=== PATIENT | female | born 1955 | race Caucasian/White ===

== ENCOUNTER → 2019-03-08 09:17 | Outpatient (CLI) | payer BC, SELFPAY ==
--- NOTE | 2019-03-08 09:19 | DIET.PN ---
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 doesn't like eggs anymore, doesn't like protein drinks, chicken too dry maybe if sauce, no grease or white cheese dr took out too much entire stomach esophagus drains right into SI. Pt can lean over toilet and vomit without trying. has to stop eating 7-8h before bed or vomits, no nausea more of a pressure only relieved by emesis. Meds: if takes caraphate med before bed, not as bad, but currently taking double dose and up to 4x/d, helps to coagulate refluxing bile. Pt not taking vitamins (MVI, D, Calcium, B12) she threw them away. Usual intake: B 3-4a 1 c coffee c milk c cookie or something sweet 4h later anything with sugar 2/3 c high pro cereals (burned out) c milk crackers and sugary foods throughout day, hungry every 30 min. Nutrition Diagnosis: Inadequate PRO intake r/t px in sternum as food feels stuck aeb 2/3 c high PRO cereal as main PRO source in day providing less than 20% of estimated needs, aversion to PRO foods b/c too dry or too greasy causing GI distress, pt reports eating only sugary foods. 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 Interventions: Educated pt on critical importance of supplements, problem solved a way to get liquid/sublingual versions rather than pill (more likely to consume). Collaborated on high PRO snack ideas. Acceptable PRO foods per pt: high pro cereal, egg (doesn't prefer), peanut butter c soda crackers, try cottage cheese. Educated pt on hunger satiety scale, honoring hunger, eating when 3 and stopping when 7. Keeping snacks in car. Monitoring/Evaluations: Pt interested in continuation of care.
== END ==
PROVIDERS: Visit Provider Family Medicine
DX: Z98.84 Bariatric surgery status (principal)
CPT/HCPCS: 97802

== ENCOUNTER → 2021-01-07 10:35 | Outpatient (CLI) | payer MEDICARE, OTHER, SELFPAY ==
[2021-01-07 19:46] LABS: Alanine Aminotransferase 9 IU/L (<35); Albumin 3.7 g/dL (3.5-5.0); Albumin Globulin Ratio 1.2 (1.0-2.8); Alkaline Phosphatase 111 U/L (38-126); Aspartate Aminotransferase 23 IU/L (14-36); BUN Creatinine Ratio 26.5 (6-22); Bilirubin Total 0.3 mg/dL (0.2-1.3); Blood Urea Nitrogen 18 mg/dL (7-17); Calcium 9.7 mg/dL (8.4-10.2); Carbon Dioxide 29 mmol/L (22-32); Chloride 103 mmol/L (98-107); Estimated Glomerular Filt Rate > 60.0 mL/min (>60); Glucose 96 mg/dL (80-110); HEMOLYSIS < 15 (0-50); Potassium 4.5 mmol/L (3.4-5.1); Sodium 138 mmol/L (137-145); Total Protein 6.7 g/dL (6.3-8.2)
[2021-01-07 19:48] LABS: Hemoglobin A1C% w Est Avg Glu 5.5 % (4.0-6.0)
[2021-01-07 20:07] LABS: Thyroid Stimulating Hormone 1.37 uIU/mL (0.47-4.68)
[2021-01-07 21:38] LABS: Add Manual Diff / Slide Review NO; Basophils Absolute Auto 0 /uL (0-100); Basophils Percent Auto 0.3 % (0-2); Eosinophils Absolute Auto 200 /uL (0-450); Eosinophils Percent Auto 2.5 % (2-4); Hematocrit 39.5 % (36-46); Hemoglobin 13.6 g/dL (12.0-16.0); Lymphocytes Absolute Auto 2700 /uL (1100-4500); Lymphocytes Percent Auto 33.8 % (25-40); Mean Corpuscular HGB Conc 34.4 % (30-36); Mean Corpuscular Hemoglobin 28.8 PG (26-34); Monocytes Absolute Auto 500 /uL (0-900); Monocytes Percent Auto 5.7 % (3-14); Neutrophils Absolute Auto 4600 /uL (1500-7000); Neutrophils Percent Auto 57.7 % (50-75); Platelet Count 245 X10^3/uL (150-400); Red Blood Cell Count 4.71 X10^6/uL (4.0-5.2); Red Cell Distribution Width 13.7 % (11.6-14.8)
[2021-01-07 22:11] LABS: Vitamin B12 337 pg/mL (239-931)
[2021-01-07 22:45] LABS: Folate 10.8 ng/mL (2.76-20.0)
[2021-01-09 08:41] LABS: Parathyroid Hormone Int 26 pg/mL (15-65)
== END ==
PROVIDERS: PCP Family Medicine; Visit Provider Family Medicine
DX: J69.0 Pneumonitis due to inhalation of food and vomit; E66.01 Morbid (severe) obesity due to excess calories; R53.82 Chronic fatigue, unspecified; K44.9 Diaphragmatic hernia without obstruction or gangrene; F33.41 Major depressive disorder, recurrent, in partial remission
CPT/HCPCS: 80053; 82607; 82746; 83036; 83970; 84443; 85025

== ENCOUNTER → 2021-04-25 13:49 | Outpatient (CLI) | payer MEDICARE, OTHER, SELFPAY | PROVIDERS: PCP Family Medicine; Referring Provider Family Medicine; Visit Provider Family Medicine | DX: R20.2 Paresthesia of skin (principal) | CPT/HCPCS: 95886; 95909 ==

== ENCOUNTER 2021-08-27 13:56 | Inpatient (IN) | payer MEDICARE, OTHER, SELFPAY ==
[2021-08-27] VITALS (18 sets, daily range): BP systolic 93–165; BP diastolic 44–89; PULSE 60–91; RESP 16–29; TEMP 37.1–37.6; O2SAT 91–100; BMI 33.7
--- NOTE | 2021-08-27 14:08 | DI.RAD.S_ITS ---
PROCEDURE: XR CHEST 1V INDICATIONS: fatigue TECHNIQUE: One view of the chest was acquired. COMPARISON: None. FINDINGS: Surgical changes and devices: None. Lungs and pleura: Right perihilar atelectasis and or infiltrate accentuated by low lung volumes. Diffuse chronic interstitial changes present. Mediastinum: Heart size is enlarged. Bones and chest wall: No suspicious bony lesions. Overlying soft tissues appear unremarkable. IMPRESSION: 1. Right perihilar atelectasis and infiltrate as well as cardiomegaly accentuated by low lung volumes Approved by: Raghu Dutton M.D. on 08/27/2021 at 14:51
[2021-08-27 14:55] LABS: Add Manual Diff / Slide Review NO; Basophils Absolute Auto 200 /uL (0-100); Basophils Percent Auto 0.9 % (0-2); Eosinophils Absolute Auto 0 /uL (0-450); Eosinophils Percent Auto 0.1 % (2-4); Hematocrit 43.1 % (36-46); Hemoglobin 14.5 g/dL (12.0-16.0); Lymphocytes Absolute Auto 2000 /uL (1100-4500); Lymphocytes Percent Auto 9.6 % (25-40); Mean Corpuscular HGB Conc 33.8 % (30-36); Mean Corpuscular Hemoglobin 27.8 PG (26-34); Mean Corpuscular Volume 82.3 fL (80-100); Monocytes Absolute Auto 900 /uL (0-900); Monocytes Percent Auto 4.3 % (3-14); Neutrophils Absolute Auto 17500 /uL (1500-7000); Neutrophils Percent Auto 85.1 % (50-75); Platelet Count 306 X10^3/uL (150-400); Red Blood Cell Count 5.23 X10^6/uL (4.0-5.2); White Blood Cell Count 20.6 X10^3/uL (4.5-11.0)
[2021-08-27 15:11] LABS: Alanine Aminotransferase 18 IU/L (<35); Albumin 4.2 g/dL (3.5-5.0); Albumin Globulin Ratio 1.1 (1.0-2.8); Alkaline Phosphatase 112 U/L (38-126); Aspartate Aminotransferase 25 IU/L (14-36); BUN Creatinine Ratio 34.3 (6-22); Blood Urea Nitrogen 24 mg/dL (7-17); Calcium 9.8 mg/dL (8.4-10.2); Carbon Dioxide 29 mmol/L (22-32); Chloride 99 mmol/L (98-107); Estimated Glomerular Filt Rate > 60.0 mL/min (>60); Globulin 3.7 g/dL (1.7-4.1); Glucose 138 mg/dL (80-110); HEMOLYSIS < 15 (0-50); Lipase 14 U/L (23-300); Sodium 136 mmol/L (137-145); Total Protein 7.9 g/dL (6.3-8.2)
--- NOTE | 2021-08-27 15:12 | ED.NAVMDI ---
HPI - Nausea/Vomiting/Diarrhea <Meaghan Sky PA-C - Last Filed: 08/27/21 19:01> General Chief complaint: Nausea/Vomiting/Diarrhea Stated complaint: N/V/D, dehydrated- Sent by Time Seen by Provider: 08/27/21 14:20 Source: patient and family Mode of arrival: Wheelchair History of Present Illness HPI Narrative: 65-year-old female with past medical history hiatal hernia, status post gastric bypass, B12 nutritional deficiency, essential hypertension, osteoarthritis, depression presents to the ED with 8 days of nausea, vomiting, diarrhea, abdominal cramping. Patient also states that she frequently aspirates stomach contents while sleeping, that this happened last week, causing her to start coughing. Patient has a history of aspiration pneumonia. Patient denies fever but endorses chills. Patient denies shortness of breath, chest pain, dysuria, lightheadedness, dizziness, syncope. Patient states she is having hard time keeping down any solids or fluids and is afraid she might be very dehydrated. Patient endorses fatigue. Related Data Home Medications Medication Instructions Recorded Confirmed amlodipine 10 mg tablet 10 mg PO DAILY 12/27/20 08/27/21 solifenacin 10 mg tablet 10 mg PO DAILY 08/27/21 08/27/21 ursodiol 500 mg tablet 500 mg PO DAILY 08/27/21 08/27/21 Previous Rx's Medication Instructions Recorded fluoxetine 20 mg tablet 20 mg PO QDAY #90 tab 09/12/16 Allergies Allergy/AdvReac Type Severity Reaction Status Date / Time levofloxacin [From LEVAQUIN] Allergy Mild Verified 12/31/20 12:46 Review of Systems <Meaghan Sky PA-C - Last Filed: 08/27/21 19:01> Review of Systems ROS Unobtainable: All systems reviewed & are unremarkable except as noted in HPI and below Constitutional Constitutional: Reports chills, Denies fatigue, Denies fever(s), Denies frequent falls, Denies lethargy and Denies weakness Eyes Eyes: Denies change in vision, Denies eye discharge, Denies irritation and Denies loss of vision ENT Ears, Nose, Mouth, and Throat: Denies change in voice, Denies dizziness, Denies neck pain, Denies sore throat and Denies throat swelling Cardiovascular Cardiovascular: Denies chest pain, Denies irregular heart rhythm, Denies lightheadedness, Denies palpitations, Denies dyspnea, Denies dyspnea on exertion and Denies orthopnea Respiratory Respiratory: Reports cough, Denies dyspnea, Denies dyspnea on exertion and Denies wheezing Gastrointestinal Gastrointestinal: Reports abdominal pain, Denies change in bowel habits, Reports cramping, Reports diarrhea, Reports nausea and Reports vomiting Genitourinary Genitourinary: Denies hematuria, Denies dysuria, Denies flank pain, Denies urinary incontinence and Denies urinary urgency Musculoskeletal Musculoskeletal: Denies back pain, Denies muscle weakness, Denies neck pain, Denies numbness and Denies tingling Integumentary/Breasts Skin/Breast: Denies pruritus, Denies erythema, Denies rash and Denies wounds Neurologic Neurologic: Denies behavioral changes, Denies confusion, Denies dizziness, Denies frequent falls, Denies loss of vision, Denies numbness, Denies tingling and Denies weakness Psychiatric Psychiatric: Denies anxiety, Denies behavioral changes, Denies confusion, Denies depression, Denies homicidal ideation and Denies suicidal ideation Endocrine Endocrine: Denies fatigue, Denies flushing and Denies palpitations Hematologic/Lymphatic Hematologic/Lymphatic: Denies easy bruising Allergic/Immunologic Allergic/Immunologic: Denies urticaria, Denies throat swelling and Denies wheezing Patient History <Meaghan Sky PA-C - Last Filed: 08/27/21 19:01> Medical History (Updated 08/27/21 @ 23:28 by RAOUL Azar-ALAN) Chicken pox Depression Essential hypertension History of urinary incontinence (~1992) Measles Mumps Osteoarthritis Scarlet fever Surgical History H/O oophorectomy (~1988) History of bladder suspension procedure (~1998) History of carpal tunnel release (~1997) History of cataract removal with insertion of prosthetic lens History of Neil-en-Y gastric bypass (~08/2017) History of total abdominal hysterectomy Hx of cholecystectomy Family History Father Cancer Mother History of heart disease Sister Suicide Sister Kidney disease Grandfather History of emphysema Social History household members: spouse Smoking Status: Former smoker alcohol intake: current Smoking Status: Former smoker Exam <Meaghan Sky PA-C - Last Filed: 08/27/21 19:01> Initial Vital Signs Initial Vital Signs: Vital Signs Temperature 99.6 F 08/27/21 14:08 Pulse Rate 91 H 08/27/21 14:08 Respiratory Rate 22 08/27/21 14:08 Blood Pressure 165/89 H 08/27/21 14:08 Pulse Oximetry 91 08/27/21 14:08 Const General: cooperative and healthy appearing HENSC Head: normal to inspection Eyes General: appearance normal, both eyes and all related structures Neck Neck: normal visual inspection Chest Chest: normal inspection of the chest Resp Effort & Inspection: normal respiratory effort Auscultation: clear to auscultation bilaterally Cardio Rate: tachycardic Rhythm: regular rhythm GI Inspection: normal to inspection Other: Abdomen is soft, nondistended. Tender to palpation in the epigastric region. No CVA tenderness. General: No CVA tenderness Back/Spine/Pelvis Back: normal to inspection Skin General: no rashes or lesions noted Neuro General: patient alert, patient awake and patient oriented x3 Extrem General: normal to inspection <Bria Najera DO - Last Filed: 08/30/21 09:16> Initial Vital Signs Initial Vital Signs: Vital Signs Temperature 99.6 F 08/27/21 14:08 Pulse Rate 91 H 08/27/21 14:08 Respiratory Rate 22 08/27/21 14:08 Blood Pressure 165/89 H 08/27/21 14:08 Pulse Oximetry 91 08/27/21 14:08 Course <Meaghan Sky PA-C - Last Filed: 08/27/21 19:01> Course Course Narrative: WBC elevated to 20.6. Chest x-ray positive for pneumonia. CT abdomen pelvis positive for SBO. Patient's symptoms controlled with Ketoralac, Zofran, Reglan. Patient triggered sepsis with positive SIRS, sepsis was activated. Sepsis fluids, broad-spectrum antibiotics vancomycin and Zosyn started. Surgery was consulted for the SBO, they recommended attempting a hernia reduction. Hernia reduction was attempted, unsuccessful due to challenging body habitus sufficient. Surgery was reconsulted, they will consider taking the patient to the OR tomorrow. Hospitalist was consulted, patient admitted to medicine for pneumonia and SBO. Orders Ordered: Albuterol (Albuterol 1.25 Mg/3 Ml Neb (Pediatric)) 1.25 mg INH RTQ4HR PRN PRN Reason: Shortness Of Breath Or Wheezing Diphenhydramine HCl (Diphenhydramine 50 Mg/Ml Vial) 25 mg IV Q6HR PRN PRN Reason: Nausea Last Admin: 08/29/21 20:40 Dose: 25 mg Documented by: KAISER Enoxaparin Sodium (Enoxaparin 40 Mg/0.4 Ml Syringe) 40 mg SUBCUT DAILY LARRY Last Admin: 08/30/21 09:06 Dose: 40 mg Documented by: JOIE Hydromorphone HCl (Hydromorphone 1 Mg Inj) 1 mg IV Q6H PRN PRN Reason: Pain, Severe (7-10) Hydromorphone HCl (Hydromorphone 0.5 Mg Inj) 0.5 mg IV Q2H PRN PRN Reason: Pain, Moderate (4-6) Last Admin: 08/30/21 09:07 Dose: 0.5 mg Documented by: Admin: 08/30/21 06:38 Dose: 0.5 mg Documented by: Admin: 08/30/21 02:33 Dose: 0.5 mg Documented by: Admin: 08/30/21 00:06 Dose: 0.5 mg Documented by: Admin: 08/29/21 20:32 Dose: 0.5 mg Documented by: Admin: 08/29/21 17:12 Dose: 0.5 mg Documented by: Admin: 08/29/21 13:19 Dose: 0.5 mg Documented by: Admin: 08/29/21 11:19 Dose: 0.5 mg Documented by: Admin: 08/29/21 07:44 Dose: 0.5 mg Documented by: Admin: 08/29/21 05:34 Dose: 0.5 mg Documented by: Admin: 08/29/21 02:49 Dose: 0.5 mg Documented by: Admin: 08/28/21 20:38 Dose: 0.5 mg Documented by: Admin: 08/28/21 14:39 Dose: 0.5 mg Documented by: JOIE Potassium Chloride/Sodium Chloride (Ns With Kcl 20 Meq) 1,000 mls @ 100 mls/hr IV CONT [facility] Last Admin: 08/30/21 06:35 Dose: 100 mls/hr Documented by: Infusion: 08/30/21 06:27 Dose: 100 mls/hr Documented by: Admin: 08/29/21 20:27 Dose: 100 mls/hr Documented by: Infusion: 08/29/21 20:27 Dose: 100 mls/hr Documented by: Admin: 08/29/21 11:20 Dose: 100 mls/hr Documented by: Infusion: 08/29/21 11:20 Dose: 100 mls/hr Documented by: Admin: 08/29/21 02:03 Dose: 100 mls/hr Documented by: Infusion: 08/29/21 01:43 Dose: 100 mls/hr Documented by: Admin: 08/28/21 15:43 Dose: 100 mls/hr Documented by: JOIE Naloxone HCl (Naloxone 0.4 Mg/Ml Vial) 0.2 mg IV Q2MIN PRN PRN Reason: Opiate Reversal Ondansetron HCl (Ondansetron 4 Mg/2 Ml Inj) 4 mg IV Q4HR [facility] Admin: 08/30/21 09:07 Dose: Not Given Documented by: Admin: 08/30/21 04:58 Dose: Not Given Documented by: Admin: 08/30/21 02:32 Dose: Not Given Documented by: Admin: 08/29/21 20:33 Dose: 4 mg Documented by: Admin: 08/29/21 17:13 Dose: Not Given Documented by: Admin: 08/29/21 14:54 Dose: Not Given Documented by: Admin: 08/29/21 07:44 Dose: Not Given Documented by: Admin: 08/29/21 04:28 Dose: Not Given Documented by: Admin: 08/29/21 00:55 Dose: Not Given Documented by: Admin: 08/28/21 22:14 Dose: Not Given Documented by: Admin: 08/28/21 17:55 Dose: Not Given Documented by: JOIE Pantoprazole Sodium (Pantoprazole 40 Mg Vial) 40 mg IV BID [facility] Last Admin: 08/30/21 09:07 Dose: 40 mg Documented by: Admin: 08/29/21 20:31 Dose: 40 mg Documented by: Admin: 08/29/21 07:43 Dose: 40 mg Documented by: Admin: 08/28/21 20:37 Dose: 40 mg Documented by: TIBURCIO Sodium Chloride (Sodium Chloride 0.9% Flush) 10 ml IV PRN PRN PRN Reason: Flush Last Admin: 08/30/21 09:07 Dose: 10 ml Documented by: JOIE Sodium Chloride (Sodium Chloride 0.9% Flush) 10 ml IV BID [facility] Last Admin: 08/29/21 07:46 Dose: 10 ml Documented by: Admin: 08/29/21 07:44 Dose: 10 ml Documented by: Admin: 08/28/21 20:41 Dose: 10 ml Documented by: TIBURCIO Discontinued Medications Albuterol (Albuterol 2.5 Mg/3 Ml Neb (Adult)) 2.5 mg INH NOW PRN PRN Reason: Coughing, Wheezing, Dyspnea Diazepam (Diazepam 10 Mg/2 Ml Syringe) 5 mg IV NOW ONE Stop: 08/27/21 17:51 Last Admin: 08/27/21 18:04 Dose: 5 mg Documented by: CHAD Hydromorphone HCl (Hydromorphone 1 Mg Inj) 1 mg IV NOW ONE Stop: 08/27/21 18:26 Last Admin: 08/27/21 18:33 Dose: Not Given Documented by: CHAD Hydromorphone HCl (Hydromorphone 0.5 Mg Inj) 0.5 mg IV Q2H PRN PRN Reason: Pain, Moderate (4-6) Hydromorphone HCl (Hydromorphone 2 Mg Inj) 0.5 mg IV Q2H PRN PRN Reason: Pain, Moderate (4-6) Hydroxyzine HCl (Hydroxyzine 50 Mg/Ml Inj) 25 mg IM NOW PRN PRN Reason: Pain, Mild (1-3) Last Admin: 08/28/21 10:36 Dose: 25 mg Documented by: CHETNA Sodium Chloride (Normal Saline 0.9%) 1,000 mls @ 1,000 mls/hr IV BOLUS ONE Stop: 08/27/21 15:59 Last Infusion: 08/27/21 16:52 Dose: 0 mls/hr Documented by: Admin: 08/27/21 15:17 Dose: 1,000 mls/hr Documented by: CHAD Vancomycin HCl/Dextrose (Vancomycin) 1,500 mg in 300 mls @ 200 mls/hr IV NOW ONE Stop: 08/27/21 16:56 Last Infusion: 08/27/21 20:38 Dose: 200 mls/hr Documented by: Admin: 08/27/21 16:52 Dose: 200 mls/hr Documented by: CHAD Piperacillin Sod/Tazobactam (Sod 4.5 gm/ Sodium Chloride) 100 mls @ 200 mls/hr IV NOW ONE Stop: 08/27/21 15:28 Last Infusion: 08/27/21 16:51 Dose: 0 mls/hr Documented by: Admin: 08/27/21 16:07 Dose: 200 mls/hr Documented by: CHAD Sodium Chloride (Normal Saline 0.9%) 1,779 mls @ 593 mls/hr 30 ml/kg infuse over 3 hr (1779 ml) IV NOW ONE Stop: 08/27/21 18:28 Last Infusion: 08/27/21 20:39 Dose: 0 mls/hr Documented by: Admin: 08/27/21 16:52 Dose: 593 mls/hr Documented by: CHAD Lactated Ringer's (Lactated Ringers) 1,000 mls @ 100 mls/hr IV CONT LARRY Last Admin: 08/27/21 23:21 Dose: Not Given Documented by: JULIANNE Piperacillin Sod/Tazobactam (Sod 3.375 gm/ Sodium Chloride) 100 mls @ 25 mls/hr IV Q8H LARRY Last Infusion: 08/28/21 08:53 Dose: 0 mls/hr Documented by: Admin: 08/28/21 04:13 Dose: 25 mls/hr Documented by: Infusion: 08/28/21 01:10 Dose: 0 mls/hr Documented by: Admin: 08/27/21 21:06 Dose: 25 mls/hr Documented by: JULIANNE Sodium Chloride (Normal Saline 0.9%) 1,000 mls @ 60 mls/hr IV CONT [facility] Last Infusion: 08/28/21 14:58 Dose: 0 mls/hr Documented by: Admin: 08/27/21 21:05 Dose: 60 mls/hr Documented by: JULIANNE Ketorolac Tromethamine (Ketorolac 30 Mg/Ml Vial) 15 mg IV NOW ONE Stop: 08/27/21 15:01 Last Admin: 08/27/21 15:17 Dose: 15 mg Documented by: CHAD Ketorolac Tromethamine (Ketorolac 30 Mg/Ml Vial) 30 mg IV Q6HR PRN PRN Reason: Fever Stop: 09/01/21 19:52 Last Admin: 08/28/21 14:06 Dose: 30 mg Documented by: JOIE Metoclopramide HCl (Metoclopramide 10 Mg/2 Ml Inj) 10 mg IV NOW ONE Stop: 08/27/21 15:42 Last Admin: 08/27/21 15:50 Dose: 10 mg Documented by: CHAD Morphine Sulfate (Morphine 10 Mg/Ml Inj) 0 mg IV Q5M PRN PRN Reason: Pain, Mild (1-3) Morphine Sulfate (Morphine 10 Mg/Ml Inj) 0 mg IV Q5M PRN PRN Reason: Pain, Moderate (4-6) Morphine Sulfate (Morphine 10 Mg/Ml Inj) 0 mg IV Q5M PRN PRN Reason: Pain, Severe (7-10) Ondansetron HCl (Ondansetron 4 Mg/2 Ml Inj) 4 mg IV NOW ONE Stop: 08/27/21 15:01 Last Admin: 08/27/21 15:17 Dose: 4 mg Documented by: CHAD Ondansetron HCl (Ondansetron 4 Mg/2 Ml Inj) 4 mg IV Q8HR PRN PRN Reason: Nausea And Vomiting Ondansetron HCl (Ondansetron 4 Mg/2 Ml Inj) 4 mg IV NOW PRN PRN Reason: Nausea And Vomiting Pantoprazole Sodium (Pantoprazole 40 Mg Vial) 40 mg IV DAILY [facility] Last Admin: 08/28/21 08:53 Dose: Not Given Documented by: SPABONA Vital Signs Vital signs: Vital Signs - 8 hr 08/27/21 14:08 08/27/21 16:00 08/27/21 16:01 Temperature 99.6 F Pulse Rate 91 H 67 69 Respiratory Rate 22 24 29 H Blood Pressure 165/89 H 128/64 Pulse Oximetry 91 95 96 08/27/21 16:30 Temperature Pulse Rate 71 Respiratory Rate 23 Blood Pressure 106/67 Pulse Oximetry 96 <Bria Najera DO - Last Filed: 08/30/21 09:16> Orders Ordered: Albuterol (Albuterol 1.25 Mg/3 Ml Neb (Pediatric)) 1.25 mg INH RTQ4HR PRN PRN Reason: Shortness Of Breath Or Wheezing Diphenhydramine HCl (Diphenhydramine 50 Mg/Ml Vial) 25 mg IV Q6HR PRN PRN Reason: Nausea Last Admin: 08/29/21 20:40 Dose: 25 mg Documented by: KAISER Enoxaparin Sodium (Enoxaparin 40 Mg/0.4 Ml Syringe) 40 mg SUBCUT DAILY [facility] Last Admin: 08/30/21 09:06 Dose: 40 mg Documented by: JOIE Hydromorphone HCl (Hydromorphone 1 Mg Inj) 1 mg IV Q6H PRN PRN Reason: Pain, Severe (7-10) Hydromorphone HCl (Hydromorphone 0.5 Mg Inj) 0.5 mg IV Q2H PRN PRN Reason: Pain, Moderate (4-6) Last Admin: 08/30/21 09:07 Dose: 0.5 mg Documented by: Admin: 08/30/21 06:38 Dose: 0.5 mg Documented by: Admin: 08/30/21 02:33 Dose: 0.5 mg Documented by: Admin: 08/30/21 00:06 Dose: 0.5 mg Documented by: Admin: 08/29/21 20:32 Dose: 0.5 mg Documented by: Admin: 08/29/21 17:12 Dose: 0.5 mg Documented by: Admin: 08/29/21 13:19 Dose: 0.5 mg Documented by: Admin: 08/29/21 11:19 Dose: 0.5 mg Documented by: Admin: 08/29/21 07:44 Dose: 0.5 mg Documented by: Admin: 08/29/21 05:34 Dose: 0.5 mg Documented by: Admin: 08/29/21 02:49 Dose: 0.5 mg Documented by: Admin: 08/28/21 20:38 Dose: 0.5 mg Documented by: Admin: 08/28/21 14:39 Dose: 0.5 mg Documented by: JOIE Potassium Chloride/Sodium Chloride (Ns With Kcl 20 Meq) 1,000 mls @ 100 mls/hr IV CONT [facility] Last Admin: 08/30/21 06:35 Dose: 100 mls/hr Documented by: Infusion: 08/30/21 06:27 Dose: 100 mls/hr Documented by: Admin: 08/29/21 20:27 Dose: 100 mls/hr Documented by: Infusion: 08/29/21 20:27 Dose: 100 mls/hr Documented by: Admin: 08/29/21 11:20 Dose: 100 mls/hr Documented by: Infusion: 08/29/21 11:20 Dose: 100 mls/hr Documented by: Admin: 08/29/21 02:03 Dose: 100 mls/hr Documented by: Infusion: 08/29/21 01:43 Dose: 100 mls/hr Documented by: Admin: 08/28/21 15:43 Dose: 100 mls/hr Documented by: JOIE Naloxone HCl (Naloxone 0.4 Mg/Ml Vial) 0.2 mg IV Q2MIN PRN PRN Reason: Opiate Reversal Ondansetron HCl (Ondansetron 4 Mg/2 Ml Inj) 4 mg IV Q4HR [facility] Last Admin: 08/30/21 09:07 Dose: Not Given Documented by: Admin: 08/30/21 04:58 Dose: Not Given Documented by: Admin: 08/30/21 02:32 Dose: Not Given Documented by: Admin: 08/29/21 20:33 Dose: 4 mg Documented by: Admin: 08/29/21 17:13 Dose: Not Given Documented by: Admin: 08/29/21 14:54 Dose: Not Given Documented by: Admin: 08/29/21 07:44 Dose: Not Given Documented by: Admin: 08/29/21 04:28 Dose: Not Given Documented by: Admin: 08/29/21 00:55 Dose: Not Given Documented by: Admin: 08/28/21 22:14 Dose: Not Given Documented by: Admin: 08/28/21 17:55 Dose: Not Given Documented by: JOIE Pantoprazole Sodium (Pantoprazole 40 Mg Vial) 40 mg IV BID [facility] Last Admin: 08/30/21 09:07 Dose: 40 mg Documented by: Admin: 08/29/21 20:31 Dose: 40 mg Documented by: Admin: 08/29/21 07:43 Dose: 40 mg Documented by: Admin: 08/28/21 20:37 Dose: 40 mg Documented by: TIBURCIO Sodium Chloride (Sodium Chloride 0.9% Flush) 10 ml IV PRN PRN PRN Reason: Flush Last Admin: 08/30/21 09:07 Dose: 10 ml Documented by: JOIE Sodium Chloride (Sodium Chloride 0.9% Flush) 10 ml IV BID [facility] Last Admin: 08/29/21 07:46 Dose: 10 ml Documented by: Admin: 08/29/21 07:44 Dose: 10 ml Documented by: Admin: 08/28/21 20:41 Dose: 10 ml Documented by: TIBURCIO Discontinued Medications Albuterol (Albuterol 2.5 Mg/3 Ml Neb (Adult)) 2.5 mg INH NOW PRN PRN Reason: Coughing, Wheezing, Dyspnea Diazepam (Diazepam 10 Mg/2 Ml Syringe) 5 mg IV NOW ONE Stop: 08/27/21 17:51 Last Admin: 08/27/21 18:04 Dose: 5 mg Documented by: CHAD Hydromorphone HCl (Hydromorphone 1 Mg Inj) 1 mg IV NOW ONE Stop: 08/27/21 18:26 Last Admin: 08/27/21 18:33 Dose: Not Given Documented by: CHAD Hydromorphone HCl (Hydromorphone 0.5 Mg Inj) 0.5 mg IV Q2H PRN PRN Reason: Pain, Moderate (4-6) Hydromorphone HCl (Hydromorphone 2 Mg Inj) 0.5 mg IV Q2H PRN PRN Reason: Pain, Moderate (4-6) Hydroxyzine HCl (Hydroxyzine 50 Mg/Ml Inj) 25 mg IM NOW PRN PRN Reason: Pain, Mild (1-3) Last Admin: 08/28/21 10:36 Dose: 25 mg Documented by: CHETNA Sodium Chloride (Normal Saline 0.9%) 1,000 mls @ 1,000 mls/hr IV BOLUS ONE Stop: 08/27/21 15:59 Last Infusion: 08/27/21 16:52 Dose: 0 mls/hr Documented by: Admin: 08/27/21 15:17 Dose: 1,000 mls/hr Documented by: CHAD Vancomycin HCl/Dextrose (Vancomycin) 1,500 mg in 300 mls @ 200 mls/hr IV NOW ONE Stop: 08/27/21 16:56 Last Infusion: 08/27/21 20:38 Dose: 200 mls/hr Documented by: Admin: 08/27/21 16:52 Dose: 200 mls/hr Documented by: CHDA Piperacillin Sod/Tazobactam (Sod 4.5 gm/ Sodium Chloride) 100 mls @ 200 mls/hr IV NOW ONE Stop: 08/27/21 15:28 Last Infusion: 08/27/21 16:51 Dose: 0 mls/hr Documented by: Admin: 08/27/21 16:07 Dose: 200 mls/hr Documented by: CHAD Sodium Chloride (Normal Saline 0.9%) 1,779 mls @ 593 mls/hr 30 ml/kg infuse over 3 hr (1779 ml) IV NOW ONE Stop: 08/27/21 18:28 Last Infusion: 08/27/21 20:39 Dose: 0 mls/hr Documented by: Admin: 08/27/21 16:52 Dose: 593 mls/hr Documented by: CHAD Lactated Ringer's (Lactated Ringers) 1,000 mls @ 100 mls/hr IV CONT [facility]ARRY Last Admin: 08/27/21 23:21 Dose: Not Given Documented by: JULIANNE Piperacillin Sod/Tazobactam (Sod 3.375 gm/ Sodium Chloride) 100 mls @ 25 mls/hr IV Q8H [facility] Last Infusion: 08/28/21 08:53 Dose: 0 mls/hr Documented by: Admin: 08/28/21 04:13 Dose: 25 mls/hr Documented by: Infusion: 08/28/21 01:10 Dose: 0 mls/hr Documented by: Admin: 08/27/21 21:06 Dose: 25 mls/hr Documented by: JULIANNE Sodium Chloride (Normal Saline 0.9%) 1,000 mls @ 60 mls/hr IV CONT [facility] Last Infusion: 08/28/21 14:58 Dose: 0 mls/hr Documented by: Admin: 08/27/21 21:05 Dose: 60 mls/hr Documented by: JULIANNE Ketorolac Tromethamine (Ketorolac 30 Mg/Ml Vial) 15 mg IV NOW ONE Stop: 08/27/21 15:01 Last Admin: 08/27/21 15:17 Dose: 15 mg Documented by: CHAD Ketorolac Tromethamine (Ketorolac 30 Mg/Ml Vial) 30 mg IV Q6HR PRN PRN Reason: Fever Stop: 09/01/21 19:52 Last Admin: 08/28/21 14:06 Dose: 30 mg Documented by: JOIE Metoclopramide HCl (Metoclopramide 10 Mg/2 Ml Inj) 10 mg IV NOW ONE Stop: 08/27/21 15:42 Last Admin: 08/27/21 15:50 Dose: 10 mg Documented by: CHAD Morphine Sulfate (Morphine 10 Mg/Ml Inj) 0 mg IV Q5M PRN PRN Reason: Pain, Mild (1-3) Morphine Sulfate (Morphine 10 Mg/Ml Inj) 0 mg IV Q5M PRN PRN Reason: Pain, Moderate (4-6) Morphine Sulfate (Morphine 10 Mg/Ml Inj) 0 mg IV Q5M PRN PRN Reason: Pain, Severe (7-10) Ondansetron HCl (Ondansetron 4 Mg/2 Ml Inj) 4 mg IV NOW ONE Stop: 08/27/21 15:01 Last Admin: 08/27/21 15:17 Dose: 4 mg Documented by: CHAD Ondansetron HCl (Ondansetron 4 Mg/2 Ml Inj) 4 mg IV Q8HR PRN PRN Reason: Nausea And Vomiting Ondansetron HCl (Ondansetron 4 Mg/2 Ml Inj) 4 mg IV NOW PRN PRN Reason: Nausea And Vomiting Pantoprazole Sodium (Pantoprazole 40 Mg Vial) 40 mg IV DAILY LARRY Last Admin: 08/28/21 08:53 Dose: Not Given Documented by: JOIE Vital Signs Vital signs: Vital Signs - 8 hr 08/27/21 14:08 08/27/21 16:00 08/27/21 16:01 Temperature 99.6 F Pulse Rate 91 H 67 69 Respiratory Rate 22 24 29 H Blood Pressure 165/89 H 128/64 Pulse Oximetry 91 95 96 08/27/21 16:30 Temperature Pulse Rate 71 Respiratory Rate 23 Blood Pressure 106/67 Pulse Oximetry 96 MDM - Nausea/Vomiting/Diarrhea <Meaghan Sky PA-C - Last Filed: 08/27/21 19:01> Lab Data Lab results narrative: WBC elevated to 20.6 Result diagrams: 08/30/21 05:45 08/30/21 05:45 Labs: Lab Results 08/27/21 08/27/21 08/27/21 Range/Units 14:40 14:40 14:40 WBC (4.5-11.0) X10^3/uL RBC (4.0-5.2) X10^6/uL Hgb (12.0-16.0) g/dL Hct (36-46) % MCV (80-100) fL MCH (26-34) PG MCHC (30-36) % RDW (11.6-14.8) % Plt Count (150-400) X10^3/uL Neut % (Auto) (50-75) % Lymph % (Auto) (25-40) % [place] % (Auto) (3-14) % Eos % (Auto) (2-4) % Baso % (Auto) (0-2) % Neut # (Auto) (9333-6245) /uL Lymph # (Auto) (1357-0233) /uL [place] # (Auto) (0-900) /uL Eos # (Auto) (0-450) /uL Baso # (Auto) (0-100) /uL PT (10.1-12.7) SECONDS INR (0.9-1.3) APTT (26.4-36.2) SECONDS VBG pH (7.33-7.43) VBG pCO2 (45-50) mmHg VBG pO2 (35-45) mmHg VBG HCO3 (23-28) mmol/L VBG Total CO2 (24-29) mmol/L VBG O2 Saturation (70-75) % VBG Base Excess (0-4) mmol/L Sodium (137-145) mmol/L Potassium (3.4-5.1) mmol/L Chloride (98-107) mmol/L Carbon Dioxide (22-32) mmol/L BUN (7-17) mg/dL Creatinine (0.52-1.04) mg/dL Estimated GFR (>60) mL/min BUN/Creatinine Ratio (6-22) Glucose (80-110) mg/dL Hemoglobin A1c 5.4 (4.0-6.0) % Lactate 1.4 (0.7-2.1) mmol/L Calcium (8.4-10.2) mg/dL Magnesium (1.6-2.3) mg/dL Total Bilirubin (0.2-1.3) mg/dL AST (14-36) IU/L ALT (<35) IU/L Alkaline Phosphatase (38-126) U/L Total Protein (6.3-8.2) g/dL Albumin (3.5-5.0) g/dL Globulin (1.7-4.1) g/dL Albumin/Globulin Ratio (1.0-2.8) Lipase (23-300) U/L Procalcitonin 0.10 (<0.5) ng/mL Urine Color Urine Appearance Urine pH (4.5-8.0) Ur Specific [place] (1.000-1.035) Urine Protein (Negative) Urine Glucose (UA) (Negative) g/dL Urine Ketones (NEGATIVE) Urine Occult Blood (Negative) Urine Nitrate (Negative) Urine Bilirubin (NEGATIVE) Ur Bilirubin Confirm (Negative) Urine Urobilinogen (0.2) E.U./dL Ur Leukocyte Esterase (NEGATIVE) Urine RBC (0-5/HPF) Urine WBC (0-5/HPF) Ur Squamous Epith Cells (0-5/HPF) Ur Transition Epith Cell (0-5/HPF) Urine Bacteria (None) Hyaline Casts (None) Granular Casts (None) Urine Mucus (Negative) Ur Culture Indicated? Chlamy pneumoniae PCR (Not Detect) Adenovirus (PCR) (Not Detect) B. pertussis DNA (PCR) (Not Detecte) B.parapertussis DNA PCR (Not Detecte) Coronavirus OC43 (PCR) (Not Detect) Coronavirus HKU1 (PCR) (Not Detect) Coronavirus 229E (PCR) (Not Detect) SARS-CoV-2 (PCR) (Not Detecte) Coronavirus NL63 (PCR) (Not Detect) Human Metapneumovir PCR (Not Detect) Influenza Type A (PCR) (Not Detect) Influenza Type B (PCR) (Not Detect) M. pneumoniae (PCR) (Not Detect) Parainfluenza 1 (PCR) (Not Detect) Parainfluenza 2 (PCR) (Not Detect) Parainfluenza 3 (PCR) (Not Detect) Parainfluenza 4 (PCR) (Not Detect) RSV (PCR) (Not Detect) Entero/Rhino (PCR) (Not Detect) 08/27/21 08/27/21 08/27/21 Range/Units 14:40 14:45 14:45 WBC 20.6 H (4.5-11.0) X10^3/uL RBC 5.23 H (4.0-5.2) X10^6/uL Hgb 14.5 (12.0-16.0) g/dL Hct 43.1 (36-46) % MCV 82.3 (80-100) fL MCH 27.8 (26-34) PG MCHC 33.8 (30-36) % RDW 14.0 (11.6-14.8) % Plt Count 306 (150-400) X10^3/uL Neut % (Auto) 85.1 H (50-75) % Lymph % (Auto) 9.6 L (25-40) % [place] % (Auto) 4.3 (3-14) % Eos % (Auto) 0.1 L (2-4) % Baso % (Auto) 0.9 (0-2) % Neut # (Auto) 82424 H (1699-0894) /uL Lymph # (Auto) 2000 (0794-0696) /uL [place] # (Auto) 900 (0-900) /uL Eos # (Auto) 0 (0-450) /uL Baso # (Auto) 200 H (0-100) /uL PT (10.1-12.7) SECONDS INR (0.9-1.3) APTT (26.4-36.2) SECONDS VBG pH (7.33-7.43) VBG pCO2 (45-50) mmHg VBG pO2 (35-45) mmHg VBG HCO3 (23-28) mmol/L VBG Total CO2 (24-29) mmol/L VBG O2 Saturation (70-75) % VBG Base Excess (0-4) mmol/L Sodium 136 L (137-145) mmol/L Potassium 4.0 (3.4-5.1) mmol/L Chloride 99 (98-107) mmol/L Carbon Dioxide 29 (22-32) mmol/L BUN 24 H (7-17) mg/dL Creatinine 0.70 (0.52-1.04) mg/dL Estimated GFR > 60.0 (>60) mL/min BUN/Creatinine Ratio 34.3 H (6-22) Glucose 138 H (80-110) mg/dL Hemoglobin A1c (4.0-6.0) % Lactate (0.7-2.1) mmol/L Calcium 9.8 (8.4-10.2) mg/dL Magnesium 2.0 (1.6-2.3) mg/dL Total Bilirubin 1.0 (0.2-1.3) mg/dL AST 25 (14-36) IU/L ALT 18 (<35) IU/L Alkaline Phosphatase 112 (38-126) U/L Total Protein 7.9 (6.3-8.2) g/dL Albumin 4.2 (3.5-5.0) g/dL Globulin 3.7 (1.7-4.1) g/dL Albumin/Globulin Ratio 1.1 (1.0-2.8) Lipase 14 L (23-300) U/L Procalcitonin (<0.5) ng/mL Urine Color Urine Appearance Urine pH (4.5-8.0) Ur Specific [place] (1.000-1.035) Urine Protein (Negative) Urine Glucose (UA) (Negative) g/dL Urine Ketones (NEGATIVE) Urine Occult Blood (Negative) Urine Nitrate (Negative) Urine Bilirubin (NEGATIVE) Ur Bilirubin Confirm (Negative) Urine Urobilinogen (0.2) E.U./dL Ur Leukocyte Esterase (NEGATIVE) Urine RBC (0-5/HPF) Urine WBC (0-5/HPF) Ur Squamous Epith Cells (0-5/HPF) Ur Transition Epith Cell (0-5/HPF) Urine Bacteria (None) Hyaline Casts (None) Granular Casts (None) Urine Mucus (Negative) Ur Culture Indicated? Chlamy pneumoniae PCR (Not Detect) Adenovirus (PCR) (Not Detect) B. pertussis DNA (PCR) (Not Detecte) B.parapertussis DNA PCR (Not Detecte) Coronavirus OC43 (PCR) (Not Detect) Coronavirus HKU1 (PCR) (Not Detect) Coronavirus 229E (PCR) (Not Detect) SARS-CoV-2 (PCR) (Not Detecte) Coronavirus NL63 (PCR) (Not Detect) Human Metapneumovir PCR (Not Detect) Influenza Type A (PCR) (Not Detect) Influenza Type B (PCR) (Not Detect) M. pneumoniae (PCR) (Not Detect) Parainfluenza 1 (PCR) (Not Detect) Parainfluenza 2 (PCR) (Not Detect) Parainfluenza 3 (PCR) (Not Detect) Parainfluenza 4 (PCR) (Not Detect) RSV (PCR) (Not Detect) Entero/Rhino (PCR) (Not Detect) 08/27/21 08/27/21 08/27/21 Range/Units 14:45 15:50 15:50 WBC (4.5-11.0) X10^3/uL RBC (4.0-5.2) X10^6/uL Hgb (12.0-16.0) g/dL Hct (36-46) % MCV (80-100) fL MCH (26-34) PG MCHC (30-36) % RDW (11.6-14.8) % Plt Count (150-400) X10^3/uL Neut % (Auto) (50-75) % Lymph % (Auto) (25-40) % [place] % (Auto) (3-14) % Eos % (Auto) (2-4) % Baso % (Auto) (0-2) % Neut # (Auto) (1357-6665) /uL Lymph # (Auto) (5090-6839) /uL [place] # (Auto) (0-900) /uL Eos # (Auto) (0-450) /uL Baso # (Auto) (0-100) /uL PT 15.5 H (10.1-12.7) SECONDS INR 1.4 H (0.9-1.3) APTT 31 (26.4-36.2) SECONDS VBG pH (7.33-7.43) VBG pCO2 (45-50) mmHg VBG pO2 (35-45) mmHg VBG HCO3 (23-28) mmol/L VBG Total CO2 (24-29) mmol/L VBG O2 Saturation (70-75) % VBG Base Excess (0-4) mmol/L Sodium (137-145) mmol/L Potassium (3.4-5.1) mmol/L Chloride (98-107) mmol/L Carbon Dioxide (22-32) mmol/L BUN (7-17) mg/dL Creatinine (0.52-1.04) mg/dL Estimated GFR (>60) mL/min BUN/Creatinine Ratio (6-22) Glucose (80-110) mg/dL Hemoglobin A1c (4.0-6.0) % Lactate 1.2 (0.7-2.1) mmol/L Calcium (8.4-10.2) mg/dL Magnesium (1.6-2.3) mg/dL Total Bilirubin (0.2-1.3) mg/dL AST (14-36) IU/L ALT (<35) IU/L Alkaline Phosphatase (38-126) U/L Total Protein (6.3-8.2) g/dL Albumin (3.5-5.0) g/dL Globulin (1.7-4.1) g/dL Albumin/Globulin Ratio (1.0-2.8) Lipase (23-300) U/L Procalcitonin (<0.5) ng/mL Urine Color Urine Appearance Urine pH (4.5-8.0) Ur Specific [place] (1.000-1.035) Urine Protein (Negative) Urine Glucose (UA) (Negative) g/dL Urine Ketones (NEGATIVE) Urine Occult Blood (Negative) Urine Nitrate (Negative) Urine Bilirubin (NEGATIVE) Ur Bilirubin Confirm (Negative) Urine Urobilinogen (0.2) E.U./dL Ur Leukocyte Esterase (NEGATIVE) Urine RBC (0-5/HPF) Urine WBC (0-5/HPF) Ur Squamous Epith Cells (0-5/HPF) Ur Transition Epith Cell (0-5/HPF) Urine Bacteria (None) Hyaline Casts (None) Granular Casts (None) Urine Mucus (Negative) Ur Culture Indicated? Chlamy pneumoniae PCR Not detected (Not Detect) Adenovirus (PCR) Not detected (Not Detect) B. pertussis DNA (PCR) Not detected (Not Detecte) B.parapertussis DNA PCR Not detected (Not Detecte) Coronavirus OC43 (PCR) Not detected (Not Detect) Coronavirus HKU1 (PCR) Not detected (Not Detect) Coronavirus 229E (PCR) Not detected (Not Detect) SARS-CoV-2 (PCR) Not detected (Not Detecte) Coronavirus NL63 (PCR) Not detected (Not Detect) Human Metapneumovir PCR Not detected (Not Detect) Influenza Type A (PCR) Not detected (Not Detect) Influenza Type B (PCR) Not detected (Not Detect) M. pneumoniae (PCR) Not detected (Not Detect) Parainfluenza 1 (PCR) Not detected (Not Detect) Parainfluenza 2 (PCR) Not detected (Not Detect) Parainfluenza 3 (PCR) Not detected (Not Detect) Parainfluenza 4 (PCR) Not detected (Not Detect) RSV (PCR) Not detected (Not Detect) Entero/Rhino (PCR) Not detected (Not Detect) 08/27/21 08/27/21 Range/Units 16:05 16:45 WBC (4.5-11.0) X10^3/uL RBC (4.0-5.2) X10^6/uL Hgb (12.0-16.0) g/dL Hct (36-46) % MCV (80-100) fL MCH (26-34) PG MCHC (30-36) % RDW (11.6-14.8) % Plt Count (150-400) X10^3/uL Neut % (Auto) (50-75) % Lymph % (Auto) (25-40) % [place] % (Auto) (3-14) % Eos % (Auto) (2-4) % Baso % (Auto) (0-2) % Neut # (Auto) (6898-0221) /uL Lymph # (Auto) (5264-6050) /uL [place] # (Auto) (0-900) /uL Eos # (Auto) (0-450) /uL Baso # (Auto) (0-100) /uL PT (10.1-12.7) SECONDS INR (0.9-1.3) APTT (26.4-36.2) SECONDS VBG pH 7.50 H (7.33-7.43) VBG pCO2 34.9 L (45-50) mmHg VBG pO2 63 H (35-45) mmHg VBG HCO3 27 (23-28) mmol/L VBG Total CO2 28 (24-29) mmol/L VBG O2 Saturation 94 H (70-75) % VBG Base Excess 4.0 (0-4) mmol/L Sodium (137-145) mmol/L Potassium (3.4-5.1) mmol/L Chloride (98-107) mmol/L Carbon Dioxide (22-32) mmol/L BUN (7-17) mg/dL Creatinine (0.52-1.04) mg/dL Estimated GFR (>60) mL/min BUN/Creatinine Ratio (6-22) Glucose (80-110) mg/dL Hemoglobin A1c (4.0-6.0) % Lactate (0.7-2.1) mmol/L Calcium (8.4-10.2) mg/dL Magnesium (1.6-2.3) mg/dL Total Bilirubin (0.2-1.3) mg/dL AST (14-36) IU/L ALT (<35) IU/L Alkaline Phosphatase (38-126) U/L Total Protein (6.3-8.2) g/dL Albumin (3.5-5.0) g/dL Globulin (1.7-4.1) g/dL Albumin/Globulin Ratio (1.0-2.8) Lipase (23-300) U/L Procalcitonin (<0.5) ng/mL Urine Color Yellow Urine Appearance Sl cloudy Urine pH 5.5 (4.5-8.0) Ur Specific [place] 1.025 (1.000-1.035) Urine Protein Trace H (Negative) Urine Glucose (UA) Negative (Negative) g/dL Urine Ketones 1+ H (NEGATIVE) Urine Occult Blood Negative (Negative) Urine Nitrate Negative (Negative) Urine Bilirubin 1+ H (NEGATIVE) Ur Bilirubin Confirm Negative (Negative) Urine Urobilinogen 0.2 (0.2) E.U./dL Ur Leukocyte Esterase Trace H (NEGATIVE) Urine RBC None seen (0-5/HPF) Urine WBC 1-5/hpf (0-5/HPF) Ur Squamous Epith Cells 5-10 /hpf H (0-5/HPF) Ur Transition Epith Cell 1-5/hpf (0-5/HPF) Urine Bacteria Moderate (10-30) H (None) Hyaline Casts 1-5/lpf (None) Granular Casts 1-5/lpf (None) Urine Mucus 2+ H (Negative) Ur Culture Indicated? Cult not indicated Chlamy pneumoniae PCR (Not Detect) Adenovirus (PCR) (Not Detect) B. pertussis DNA (PCR) (Not Detecte) B.parapertussis DNA PCR (Not Detecte) Coronavirus OC43 (PCR) (Not Detect) Coronavirus HKU1 (PCR) (Not Detect) Coronavirus 229E (PCR) (Not Detect) SARS-CoV-2 (PCR) (Not Detecte) Coronavirus NL63 (PCR) (Not Detect) Human Metapneumovir PCR (Not Detect) Influenza Type A (PCR) (Not Detect) Influenza Type B (PCR) (Not Detect) M. pneumoniae (PCR) (Not Detect) Parainfluenza 1 (PCR) (Not Detect) Parainfluenza 2 (PCR) (Not Detect) Parainfluenza 3 (PCR) (Not Detect) Parainfluenza 4 (PCR) (Not Detect) RSV (PCR) (Not Detect) Entero/Rhino (PCR) (Not Detect) Imaging Data CT scan - abdomen/pelvis: Radiologist's Impression: PROCEDURE:? CT ABDOMEN PELVIS W CON ? INDICATIONS:? ?SBO, surgical coomplcations? ? TECHNIQUE:? After the administration of intravenous contrast, axial sections acquired from the lung bases to the pubic symphysis.? Coronal and sagittal reformats were performed.? For radiation dose reduction, the following was used:? automated exposure control, adjustment of mA and/or kV according to patient size.? ? COMPARISON:? None. ? FINDINGS:? Image quality:? Excellent.? ? Lung bases:? Reticulonodular right lower lobe density could reflect a small infiltrate. Heart:? No significant findings. ? ABDOMEN: Liver:? Unremarkable.? ? Gallbladder:? Cholecystectomy? ? Biliary ducts:? Unremarkable.? ? Pancreas:? Unremarkable.? ? Spleen:? Unremarkable.? ? Adrenal Glands:? Unremarkable.? ? Kidneys and Ureters:? 8 mm nonobstructive right renal calculus and left renal peripelvic cysts present.? No hydronephrosis bilaterally. ? Stomach and Bowel:? Proximal small bowel is dilated up to 4.7 cm, the distal small bowel is decompressed.? Transition is associated with a periumbilical hernia containing a loop of bowel.? No free air or free fluid.? Prior gastric surgery noted.? Small hiatal hernia noted. Peritoneum:? No abnormal intraperitoneal fluid.? No free air.? ? Ventral Wall: ? No hernias.? Abdominal Nodes:? No retroperitoneal or mesenteric adenopathy by size criteria.? Vessels:? Aorta and inferior vena cava are normal in size.? ? PELVIS: Pelvic Organs:? Unremarkable.? ? Bladder:? Unremarkable.? ? Pelvic Nodes: No enlarged lymph nodes.? Miscellaneous: No hernias are seen. ? ? ? Bones:? Unremarkable.? IMPRESSION:? ? 1. Small-bowel obstruction related bowel containing small periumbilical hernia.? Small bowel is dilated up to 4.7 cm.? No free air or free fluid. ? 2. Small reticulonodular infiltrate in the right lower lobe could be infectious or inflammatory. ? 3. Prior gastric surgery and small hiatal hernia present.? Cholecystectomy. ? 4. Nonobstructive right renal calculus and left renal peripelvic cysts.? Approved by: Raghu Dutton M.D. on 08/27/2021 at 16:18? Chest x-ray: Radiologist's Impression: PROCEDURE:? XR CHEST 1V ? INDICATIONS:? fatigue ? TECHNIQUE:? One view of the chest was acquired.? ? COMPARISON:? None. ? FINDINGS:? ? Surgical changes and devices:? None.? ? Lungs and pleura:? Right perihilar atelectasis and or infiltrate accentuated by low lung volumes.? Diffuse chronic interstitial changes present. ? Mediastinum:? Heart size is enlarged.? ? Bones and chest wall:? No suspicious bony lesions.? Overlying soft tissues appear unremarkable.? ? IMPRESSION:? ? 1. Right perihilar atelectasis and infiltrate as well as cardiomegaly accentuated by low lung volumes ? ? Approved by: Raghu Dutton M.D. on 08/27/2021 at 14:51 ECG Data Interpretation: Normal sinus rhythm. Left axis deviation. No acute ST-T changes. MDM Narrative Medical decision making narrative: 65-year-old female with past medical history hiatal hernia, status post gastric bypass, B12 nutritional deficiency, essential hypertension, osteoarthritis, depression presents to the ED with 8 days of nausea, vomiting, diarrhea, abdominal cramping. Concern for pneumonia versus gastroenteritis versus dehydration versus electrolyte abnormalities versus sepsis vs UTI. Will order labs, chest x-ray, EKG, lipase, lactate, UA, procalcitonin. Will treat symptoms with Toradol, Zofran, IV fluids. Will reassess. <Bria Najera, DO - Last Filed: 08/30/21 09:16> Lab Data Labs: Lab Results 08/27/21 08/27/21 08/27/21 Range/Units 14:40 14:40 14:40 WBC (4.5-11.0) X10^3/uL RBC (4.0-5.2) X10^6/uL Hgb (12.0-16.0) g/dL Hct (36-46) % MCV (80-100) fL MCH (26-34) PG MCHC (30-36) % RDW (11.6-14.8) % Plt Count (150-400) X10^3/uL Neut % (Auto) (50-75) % Lymph % (Auto) (25-40) % [place] % (Auto) (3-14) % Eos % (Auto) (2-4) % Baso % (Auto) (0-2) % Neut # (Auto) (2928-4419) /uL Lymph # (Auto) (0859-0681) /uL [place] # (Auto) (0-900) /uL Eos # (Auto) (0-450) /uL Baso # (Auto) (0-100) /uL PT (10.1-12.7) SECONDS INR (0.9-1.3) APTT (26.4-36.2) SECONDS VBG pH (7.33-7.43) VBG pCO2 (45-50) mmHg VBG pO2 (35-45) mmHg VBG HCO3 (23-28) mmol/L VBG Total CO2 (24-29) mmol/L VBG O2 Saturation (70-75) % VBG Base Excess (0-4) mmol/L Sodium (137-145) mmol/L Potassium (3.4-5.1) mmol/L Chloride (98-107) mmol/L Carbon Dioxide (22-32) mmol/L BUN (7-17) mg/dL Creatinine (0.52-1.04) mg/dL Estimated GFR (>60) mL/min BUN/Creatinine Ratio (6-22) Glucose (80-110) mg/dL Hemoglobin A1c 5.4 (4.0-6.0) % Lactate 1.4 (0.7-2.1) mmol/L Calcium (8.4-10.2) mg/dL Magnesium (1.6-2.3) mg/dL Total Bilirubin (0.2-1.3) mg/dL AST (14-36) IU/L ALT (<35) IU/L Alkaline Phosphatase (38-126) U/L Total Protein (6.3-8.2) g/dL Albumin (3.5-5.0) g/dL Globulin (1.7-4.1) g/dL Albumin/Globulin Ratio (1.0-2.8) Lipase (23-300) U/L Procalcitonin 0.10 (<0.5) ng/mL Urine Color Urine Appearance Urine pH (4.5-8.0) Ur Specific [place] (1.000-1.035) Urine Protein (Negative) Urine Glucose (UA) (Negative) g/dL Urine Ketones (NEGATIVE) Urine Occult Blood (Negative) Urine Nitrate (Negative) Urine Bilirubin (NEGATIVE) Ur Bilirubin Confirm (Negative) Urine Urobilinogen (0.2) E.U./dL Ur Leukocyte Esterase (NEGATIVE) Urine RBC (0-5/HPF) Urine WBC (0-5/HPF) Ur Squamous Epith Cells (0-5/HPF) Ur Transition Epith Cell (0-5/HPF) Urine Bacteria (None) Hyaline Casts (None) Granular Casts (None) Urine Mucus (Negative) Ur Culture Indicated? Chlamy pneumoniae PCR (Not Detect) Adenovirus (PCR) (Not Detect) B. pertussis DNA (PCR) (Not Detecte) B.parapertussis DNA PCR (Not Detecte) Coronavirus OC43 (PCR) (Not Detect) Coronavirus HKU1 (PCR) (Not Detect) Coronavirus 229E (PCR) (Not Detect) SARS-CoV-2 (PCR) (Not Detecte) Coronavirus NL63 (PCR) (Not Detect) Human Metapneumovir PCR (Not Detect) Influenza Type A (PCR) (Not Detect) Influenza Type B (PCR) (Not Detect) M. pneumoniae (PCR) (Not Detect) Parainfluenza 1 (PCR) (Not Detect) Parainfluenza 2 (PCR) (Not Detect) Parainfluenza 3 (PCR) (Not Detect) Parainfluenza 4 (PCR) (Not Detect) RSV (PCR) (Not Detect) Entero/Rhino (PCR) (Not Detect) 08/27/21 08/27/21 08/27/21 Range/Units 14:40 14:45 14:45 WBC 20.6 H (4.5-11.0) X10^3/uL RBC 5.23 H (4.0-5.2) X10^6/uL Hgb 14.5 (12.0-16.0) g/dL Hct 43.1 (36-46) % MCV 82.3 (80-100) fL MCH 27.8 (26-34) PG MCHC 33.8 (30-36) % RDW 14.0 (11.6-14.8) % Plt Count 306 (150-400) X10^3/uL Neut % (Auto) 85.1 H (50-75) % Lymph % (Auto) 9.6 L (25-40) % [place] % (Auto) 4.3 (3-14) % Eos % (Auto) 0.1 L (2-4) % Baso % (Auto) 0.9 (0-2) % Neut # (Auto) 67570 H (0740-4185) /uL Lymph # (Auto) 2000 (8982-6512) /uL [place] # (Auto) 900 (0-900) /uL Eos # (Auto) 0 (0-450) /uL Baso # (Auto) 200 H (0-100) /uL PT (10.1-12.7) SECONDS INR (0.9-1.3) APTT (26.4-36.2) SECONDS VBG pH (7.33-7.43) VBG pCO2 (45-50) mmHg VBG pO2 (35-45) mmHg VBG HCO3 (23-28) mmol/L VBG Total CO2 (24-29) mmol/L VBG O2 Saturation (70-75) % VBG Base Excess (0-4) mmol/L Sodium 136 L (137-145) mmol/L Potassium 4.0 (3.4-5.1) mmol/L Chloride 99 (98-107) mmol/L Carbon Dioxide 29 (22-32) mmol/L BUN 24 H (7-17) mg/dL Creatinine 0.70 (0.52-1.04) mg/dL Estimated GFR > 60.0 (>60) mL/min BUN/Creatinine Ratio 34.3 H (6-22) Glucose 138 H (80-110) mg/dL Hemoglobin A1c (4.0-6.0) % Lactate (0.7-2.1) mmol/L Calcium 9.8 (8.4-10.2) mg/dL Magnesium 2.0 (1.6-2.3) mg/dL Total Bilirubin 1.0 (0.2-1.3) mg/dL AST 25 (14-36) IU/L ALT 18 (<35) IU/L Alkaline Phosphatase 112 (38-126) U/L Total Protein 7.9 (6.3-8.2) g/dL Albumin 4.2 (3.5-5.0) g/dL Globulin 3.7 (1.7-4.1) g/dL Albumin/Globulin Ratio 1.1 (1.0-2.8) Lipase 14 L (23-300) U/L Procalcitonin (<0.5) ng/mL Urine Color Urine Appearance Urine pH (4.5-8.0) Ur Specific [place] (1.000-1.035) Urine Protein (Negative) Urine Glucose (UA) (Negative) g/dL Urine Ketones (NEGATIVE) Urine Occult Blood (Negative) Urine Nitrate (Negative) Urine Bilirubin (NEGATIVE) Ur Bilirubin Confirm (Negative) Urine Urobilinogen (0.2) E.U./dL Ur Leukocyte Esterase (NEGATIVE) Urine RBC (0-5/HPF) Urine WBC (0-5/HPF) Ur Squamous Epith Cells (0-5/HPF) Ur Transition Epith Cell (0-5/HPF) Urine Bacteria (None) Hyaline Casts (None) Granular Casts (None) Urine Mucus (Negative) Ur Culture Indicated? Chlamy pneumoniae PCR (Not Detect) Adenovirus (PCR) (Not Detect) B. pertussis DNA (PCR) (Not Detecte) B.parapertussis DNA PCR (Not Detecte) Coronavirus OC43 (PCR) (Not Detect) Coronavirus HKU1 (PCR) (Not Detect) Coronavirus 229E (PCR) (Not Detect) SARS-CoV-2 (PCR) (Not Detecte) Coronavirus NL63 (PCR) (Not Detect) Human Metapneumovir PCR (Not Detect) Influenza Type A (PCR) (Not Detect) Influenza Type B (PCR) (Not Detect) M. pneumoniae (PCR) (Not Detect) Parainfluenza 1 (PCR) (Not Detect) Parainfluenza 2 (PCR) (Not Detect) Parainfluenza 3 (PCR) (Not Detect) Parainfluenza 4 (PCR) (Not Detect) RSV (PCR) (Not Detect) Entero/Rhino (PCR) (Not Detect) 08/27/21 08/27/21 08/27/21 Range/Units 14:45 15:50 15:50 WBC (4.5-11.0) X10^3/uL RBC (4.0-5.2) X10^6/uL Hgb (12.0-16.0) g/dL Hct (36-46) % MCV (80-100) fL MCH (26-34) PG MCHC (30-36) % RDW (11.6-14.8) % Plt Count (150-400) X10^3/uL Neut % (Auto) (50-75) % Lymph % (Auto) (25-40) % [place] % (Auto) (3-14) % Eos % (Auto) (2-4) % Baso % (Auto) (0-2) % Neut # (Auto) (1513-5553) /uL Lymph # (Auto) (1802-1205) /uL [place] # (Auto) (0-900) /uL Eos # (Auto) (0-450) /uL Baso # (Auto) (0-100) /uL PT 15.5 H (10.1-12.7) SECONDS INR 1.4 H (0.9-1.3) APTT 31 (26.4-36.2) SECONDS VBG pH (7.33-7.43) VBG pCO2 (45-50) mmHg VBG pO2 (35-45) mmHg VBG HCO3 (23-28) mmol/L VBG Total CO2 (24-29) mmol/L VBG O2 Saturation (70-75) % VBG Base Excess (0-4) mmol/L Sodium (137-145) mmol/L Potassium (3.4-5.1) mmol/L Chloride (98-107) mmol/L Carbon Dioxide (22-32) mmol/L BUN (7-17) mg/dL Creatinine (0.52-1.04) mg/dL Estimated GFR (>60) mL/min BUN/Creatinine Ratio (6-22) Glucose (80-110) mg/dL Hemoglobin A1c (4.0-6.0) % Lactate 1.2 (0.7-2.1) mmol/L Calcium (8.4-10.2) mg/dL Magnesium (1.6-2.3) mg/dL Total Bilirubin (0.2-1.3) mg/dL AST (14-36) IU/L ALT (<35) IU/L Alkaline Phosphatase (38-126) U/L Total Protein (6.3-8.2) g/dL Albumin (3.5-5.0) g/dL Globulin (1.7-4.1) g/dL Albumin/Globulin Ratio (1.0-2.8) Lipase (23-300) U/L Procalcitonin (<0.5) ng/mL Urine Color Urine Appearance Urine pH (4.5-8.0) Ur Specific [place] (1.000-1.035) Urine Protein (Negative) Urine Glucose (UA) (Negative) g/dL Urine Ketones (NEGATIVE) Urine Occult Blood (Negative) Urine Nitrate (Negative) Urine Bilirubin (NEGATIVE) Ur Bilirubin Confirm (Negative) Urine Urobilinogen (0.2) E.U./dL Ur Leukocyte Esterase (NEGATIVE) Urine RBC (0-5/HPF) Urine WBC (0-5/HPF) Ur Squamous Epith Cells (0-5/HPF) Ur Transition Epith Cell (0-5/HPF) Urine Bacteria (None) Hyaline Casts (None) Granular Casts (None) Urine Mucus (Negative) Ur Culture Indicated? Chlamy pneumoniae PCR Not detected (Not Detect) Adenovirus (PCR) Not detected (Not Detect) B. pertussis DNA (PCR) Not detected (Not Detecte) B.parapertussis DNA PCR Not detected (Not Detecte) Coronavirus OC43 (PCR) Not detected (Not Detect) Coronavirus HKU1 (PCR) Not detected (Not Detect) Coronavirus 229E (PCR) Not detected (Not Detect) SARS-CoV-2 (PCR) Not detected (Not Detecte) Coronavirus NL63 (PCR) Not detected (Not Detect) Human Metapneumovir PCR Not detected (Not Detect) Influenza Type A (PCR) Not detected (Not Detect) Influenza Type B (PCR) Not detected (Not Detect) M. pneumoniae (PCR) Not detected (Not Detect) Parainfluenza 1 (PCR) Not detected (Not Detect) Parainfluenza 2 (PCR) Not detected (Not Detect) Parainfluenza 3 (PCR) Not detected (Not Detect) Parainfluenza 4 (PCR) Not detected (Not Detect) RSV (PCR) Not detected (Not Detect) Entero/Rhino (PCR) Not detected (Not Detect) 08/27/21 08/27/21 Range/Units 16:05 16:45 WBC (4.5-11.0) X10^3/uL RBC (4.0-5.2) X10^6/uL Hgb (12.0-16.0) g/dL Hct (36-46) % MCV (80-100) fL MCH (26-34) PG MCHC (30-36) % RDW (11.6-14.8) % Plt Count (150-400) X10^3/uL Neut % (Auto) (50-75) % Lymph % (Auto) (25-40) % [place] % (Auto) (3-14) % Eos % (Auto) (2-4) % Baso % (Auto) (0-2) % Neut # (Auto) (2605-7129) /uL Lymph # (Auto) (8973-9352) /uL [place] # (Auto) (0-900) /uL Eos # (Auto) (0-450) /uL Baso # (Auto) (0-100) /uL PT (10.1-12.7) SECONDS INR (0.9-1.3) APTT (26.4-36.2) SECONDS VBG pH 7.50 H (7.33-7.43) VBG pCO2 34.9 L (45-50) mmHg VBG pO2 63 H (35-45) mmHg VBG HCO3 27 (23-28) mmol/L VBG Total CO2 28 (24-29) mmol/L VBG O2 Saturation 94 H (70-75) % VBG Base Excess 4.0 (0-4) mmol/L Sodium (137-145) mmol/L Potassium (3.4-5.1) mmol/L Chloride (98-107) mmol/L Carbon Dioxide (22-32) mmol/L BUN (7-17) mg/dL Creatinine (0.52-1.04) mg/dL Estimated GFR (>60) mL/min BUN/Creatinine Ratio (6-22) Glucose (80-110) mg/dL Hemoglobin A1c (4.0-6.0) % Lactate (0.7-2.1) mmol/L Calcium (8.4-10.2) mg/dL Magnesium (1.6-2.3) mg/dL Total Bilirubin (0.2-1.3) mg/dL AST (14-36) IU/L ALT (<35) IU/L Alkaline Phosphatase (38-126) U/L Total Protein (6.3-8.2) g/dL Albumin (3.5-5.0) g/dL Globulin (1.7-4.1) g/dL Albumin/Globulin Ratio (1.0-2.8) Lipase (23-300) U/L Procalcitonin (<0.5) ng/mL Urine Color Yellow Urine Appearance Sl cloudy Urine pH 5.5 (4.5-8.0) Ur Specific [place] 1.025 (1.000-1.035) Urine Protein Trace H (Negative) Urine Glucose (UA) Negative (Negative) g/dL Urine Ketones 1+ H (NEGATIVE) Urine Occult Blood Negative (Negative) Urine Nitrate Negative (Negative) Urine Bilirubin 1+ H (NEGATIVE) Ur Bilirubin Confirm Negative (Negative) Urine Urobilinogen 0.2 (0.2) E.U./dL Ur Leukocyte Esterase Trace H (NEGATIVE) Urine RBC None seen (0-5/HPF) Urine WBC 1-5/hpf (0-5/HPF) Ur Squamous Epith Cells 5-10 /hpf H (0-5/HPF) Ur Transition Epith Cell 1-5/hpf (0-5/HPF) Urine Bacteria Moderate (10-30) H (None) Hyaline Casts 1-5/lpf (None) Granular Casts 1-5/lpf (None) Urine Mucus 2+ H (Negative) Ur Culture Indicated? Cult not indicated Chlamy pneumoniae PCR (Not Detect) Adenovirus (PCR) (Not Detect) B. pertussis DNA (PCR) (Not Detecte) B.parapertussis DNA PCR (Not Detecte) Coronavirus OC43 (PCR) (Not Detect) Coronavirus HKU1 (PCR) (Not Detect) Coronavirus 229E (PCR) (Not Detect) SARS-CoV-2 (PCR) (Not Detecte) Coronavirus NL63 (PCR) (Not Detect) Human Metapneumovir PCR (Not Detect) Influenza Type A (PCR) (Not Detect) Influenza Type B (PCR) (Not Detect) M. pneumoniae (PCR) (Not Detect) Parainfluenza 1 (PCR) (Not Detect) Parainfluenza 2 (PCR) (Not Detect) Parainfluenza 3 (PCR) (Not Detect) Parainfluenza 4 (PCR) (Not Detect) RSV (PCR) (Not Detect) Entero/Rhino (PCR) (Not Detect) Discharge Plan Departure Patient Disposition: Admitted As Inpatient Clinical Impression: SBO (small bowel obstruction) Admit Date/Time: 08/27/21 18:48 Admit Provider: Humberto Hutchins <Bria Najera, - Last Filed: 08/30/21 09:16> Cosign ED Attending Cosignature Attestation: I was immediately available in the department for consultation. Documentation has been reviewed.
[2021-08-27 15:15] LABS: Lactate (Lactic Acid) 1.4 mmol/L (0.7-2.1)
[2021-08-27] MEDS: KETOROLAC 30 MG/ML VIAL 15 MG IV (15:17)
[2021-08-27] MEDS: ONDANSETRON 4 MG/2 ML INJ IV (15:17)
[2021-08-27] MEDS: SODIUM CHLORIDE 0.9% 1,000 ML 1000 ML IV (15:17)
[2021-08-27 15:31] LABS: INR 1.4 (0.9-1.3); Prothrombin Time 15.5 SECONDS (10.1-12.7)
[2021-08-27 15:34] LABS: PTT Partial Thromboplastin Tim 31 SECONDS (26.4-36.2)
[2021-08-27] MEDS: METOCLOPRAMIDE 10 MG/2 ML INJ IV (15:50)
[2021-08-27] MEDS: PIPERACILLIN/TAZO 4.5 GM in SODIUM CHLORIDE 0.9% 100 ML 200 ML IV (16:07)
[2021-08-27 16:17] LABS: HCO3 VBG 27 mmol/L (23-28); PCO2 VBG 34.9 mmHg (45-50); PO2 VBG 63 mmHg (35-45)
[2021-08-27 16:18] LABS: Oxygen Saturation VBG 94 % (70-75); Total CO2 VBG 28 mmol/L (24-29)
--- NOTE | 2021-08-27 16:39 | DI.CT.S_ITS ---
PROCEDURE: CT ABDOMEN PELVIS W CON INDICATIONS: ?SBO, surgical coomplcations? TECHNIQUE: After the administration of intravenous contrast, axial sections acquired from the lung bases to the pubic symphysis. Coronal and sagittal reformats were performed. For radiation dose reduction, the following was used: automated exposure control, adjustment of mA and/or kV according to patient size. COMPARISON: None. FINDINGS: Image quality: Excellent. Lung bases: Reticulonodular right lower lobe density could reflect a small infiltrate. Heart: No significant findings. ABDOMEN: Liver: Unremarkable. Gallbladder: Cholecystectomy Biliary ducts: Unremarkable. Pancreas: Unremarkable. Spleen: Unremarkable. Adrenal Glands: Unremarkable. Kidneys and Ureters: 8 mm nonobstructive right renal calculus and left renal peripelvic cysts present. No hydronephrosis bilaterally. Stomach and Bowel: Proximal small bowel is dilated up to 4.7 cm, the distal small bowel is decompressed. Transition is associated with a periumbilical hernia containing a loop of bowel. No free air or free fluid. Prior gastric surgery noted. Small hiatal hernia noted. Peritoneum: No abnormal intraperitoneal fluid. No free air. Ventral Wall: No hernias. Abdominal Nodes: No retroperitoneal or mesenteric adenopathy by size criteria. Vessels: Aorta and inferior vena cava are normal in size. PELVIS: Pelvic Organs: Unremarkable. Bladder: Unremarkable. Pelvic Nodes: No enlarged lymph nodes. Miscellaneous: No hernias are seen. Bones: Unremarkable. IMPRESSION: 1. Small-bowel obstruction related bowel containing small periumbilical hernia. Small bowel is dilated up to 4.7 cm. No free air or free fluid. 2. Small reticulonodular infiltrate in the right lower lobe could be infectious or inflammatory. 3. Prior gastric surgery and small hiatal hernia present. Cholecystectomy. 4. Nonobstructive right renal calculus and left renal peripelvic cysts. Approved by: Raghu Dutton M.D. on 08/27/2021 at 16:18
[2021-08-27] MEDS: SODIUM CHLORIDE 0.9% 1,779 ML 593 ML IV (16:52)
[2021-08-27] MEDS: VANCOMYCIN 1,500 MG/300 ML PIGGYBACK 200 MG IV (16:52)
[2021-08-27 17:15] LABS: Appearance Urine UA SL CLOUDY; Bilirubin Urine UA 1+ (NEGATIVE); Color Urine UA YELLOW; Glucose Urine UA NEGATIVE (Negative); Ketones Urine UA 1+ (NEGATIVE); Leukocyte Esterase Urine UA TRACE (NEGATIVE); Nitrite Urine UA NEGATIVE (Negative); Occult Blood Urine UA NEGATIVE (Negative); Protein Urine UA TRACE (Negative); Specific Gravity Urine UA 1.025 (1.000-1.035); Urobilinogen Urine UA 0.2 E.U./dL (0.2)
[2021-08-27 17:16] LABS: pH Urine UA 5.5 (4.5-8.0)
[2021-08-27 17:16] LABS: Adenovirus Not Detected (Not Detect); B. parapertussis Not Detected (Not Detecte); Bordetella pertussis Not Detected (Not Detecte); Chlamydophila pneumoniae Not Detected (Not Detect); Coronavirus 229E Not Detected (Not Detect); Coronavirus HKU1 Not Detected (Not Detect); Coronavirus NL 63 Not Detected (Not Detect); Coronavirus OC43 Not Detected (Not Detect); Human Metapneumovirus Not Detected (Not Detect); Human Rhinovirus/Enterovirus Not Detected (Not Detect); Influenza A Not Detected (Not Detect); Influenza B Not Detected (Not Detect); Mycoplasma pneumoniae Not Detected (Not Detect); Parainfluenza Virus 1 Not Detected (Not Detect); Parainfluenza Virus 2 Not Detected (Not Detect); Parainfluenza Virus 3 Not Detected (Not Detect); Parainfluenza Virus 4 Not Detected (Not Detect); Respiratory Syncytial Virus Not Detected (Not Detect); SARS- CoV-2 Not Detected (Not Detecte)
[2021-08-27 17:40] LABS: Ictotest Urine Negative (Negative)
[2021-08-27 17:41] LABS: Bacteria Urine Moderate (10-30); Culture Indicated Urine Cult Not Indicated; Granular Casts Urine 1-5/LPF; Hyaline Casts Urine 1-5/LPF; Mucus Urine 2+ (Negative); RBC Urine None Seen (0-5/HPF); Squamous Epithelial Cell Urine 5-10 /HPF (0-5/HPF); Transitional Epi Cells Urine 1-5/HPF (0-5/HPF); WBC Urine 1-5/HPF (0-5/HPF)
[2021-08-27] MEDS: diazePAM 10 MG/2 ML SYRINGE 5 MG IV (18:04)
[2021-08-27] MEDS: SODIUM CHLORIDE 0.9% 1,000 ML 60 ML IV (21:05)
[2021-08-27] MEDS: PIPERACILLIN/TAZO 3.375 GM in SODIUM CHLORIDE 0.9% 100 ML 25 ML IV (21:06)
[2021-08-27 21:44] LABS: Hemoglobin A1C% w Est Avg Glu 5.4 % (4.0-6.0)
--- NOTE | 2021-08-27 23:07 | PM.HP.1 ---
History of Present Illness History of Present Illness Date Patient Seen: 08/27/21 Time Patient Seen: 19:59 Chief complaint: N/V/D, dehydrated- Sent by Narrative: Lamar Ceja is a 65-year-old female with past medical history hiatal hernia, status post gastric bypass (2017), bladder suspension, total hysterectomy, B12 nutritional deficiency, essential hypertension, osteoarthritis, frequent UTI's, depression that presented to the ED with 8 days of nausea, vomiting, diarrhea, abdominal cramping.? Patient also states that she frequently aspirates stomach contents while sleeping, that this happened last week, causing her to start coughing, which she believes has caused pneumonia.? Patient has a history of aspiration pneumonia.? Patient reports fatigue, fever, body aches, urinary frequency, but denies chills.? Patient denies shortness of breath, chest pain, dysuria, lightheadedness, dizziness, syncope, hematocrit emesis, hematuria, melena, changes in vision, weakness, recent illness injury or trauma. Patient states she is having hard time keeping down any solids or fluids and is afraid she might be very dehydrated and has not taken any medication for 8 days, Last BM 6 days ago. Patient complains of center abdominal pain, constant, achy tender to touch, very mild at this time 2/10, no radiation, worsens with movement and vomiting, has been improved with pain medication and antiemetic. Patient has stopped vomiting in the ED several hours ago. Patient's vitals upon admit mildly febrile with a temp of 99.6?, BP is 106/67 previous hospitalization blood pressures show the patient to be quite hypertensive and takes amlodipine and has not had any blood pressure medication in 8 days. Heart rate 71, slightly tachypneic with a respiratory rate of 23 and O2 sat 96% on room air. VBG pH 7.5, pCO2 34.9, PO2 63, HC03 27, TCO2 28, O2 sat 94% on room air, base excess 4.0. Patient has quite an elevated WBC at 20.6 with a left shift neutrophils 17,500 and Baso# 200. Patient has an elevated BUN at 24 glucose 138, lactate WNL, lipase is low at 14, procalcitonin WNL, respiratory panel is WNL, urinalysis showed demonstrated proteins, ketones, moderate bacteria no culture was ordered. Patient met SIRS/sepsis criteria in ED and sepsis protocol was initiated patient was also given Zosyn and vancomycin. Patient's EKG demonstrated NSR with a rate of 74 left axis deviation, with a possible anterior infarct age unknown. Patients chest x-ray demonstrated right perihilar atelectasis and infiltrate as well as cardiomegaly accentuated by low lung volumes. Patient's CT of abdomen and pelvis demonstrated ?small-bowel obstruction related bowel containing small periumbilical hernia.? Small bowel is dilated up to 4.7 cm.? No free air or free fluid, with a small reticulonodular infiltrate in the right lower lobe could be infectious or inflammatory. Prior gastric surgery and small hiatal hernia present, cholecystectomy, and a nonobstructive right renal calculus and left renal peripelvic cysts.? Dr. Zuniga general surgeon was consulted in ED, for the SBO, he recommended attempting a hernia reduction.? Hernia reduction was attempted, unsuccessful due to challenging body habitus.? Surgery was reconsulted, they will consult on the case tomorrow and is considering taking the patient to the OR. Patient admitted for sepsis secondary to small-bowel obstruction containing a small periumbilical hernia, with possible viral pneumonia. Patient History Medical History (Updated 08/27/21 @ 23:28 by RAOUL Azar-ALAN) Chicken pox Depression Essential hypertension History of urinary incontinence (~1992) Measles Mumps Osteoarthritis Scarlet fever Surgical History H/O oophorectomy (~1988) History of bladder suspension procedure (~1998) History of carpal tunnel release (~1997) History of cataract removal with insertion of prosthetic lens History of Neil-en-Y gastric bypass (~08/2017) History of total abdominal hysterectomy Hx of cholecystectomy Family & Social History Family History Father Cancer Mother History of heart disease Sister Suicide Sister Kidney disease Grandfather History of emphysema Social History: household members spouse Prior Living Arrangements House Safety & Behavioral: Feels Safe in Current Yes Environment Been Physically Hurt or No Threatened By a Person Suicidal Ideation Description None Suicide Plan Description No Plan Tobacco & Substance use: Smoking Status Former smoker alcohol intake current alcohol intake frequency holiday/special occasion Substance Use Type does not use Meds Home Medications and Allergies Home Medications Medication Instructions Recorded Confirmed Type fluoxetine 20 mg tablet 20 mg PO QDAY #90 tab 09/12/16 08/27/21 Rx amlodipine 10 mg tablet 10 mg PO DAILY 12/27/20 08/27/21 History solifenacin 10 mg tablet 10 mg PO DAILY 08/27/21 08/27/21 History ursodiol 500 mg tablet 500 mg PO DAILY 08/27/21 08/27/21 History Allergies Allergy/AdvReac Type Severity Reaction Status Date / Time levofloxacin [From LEVAQUIN] Allergy Mild Verified 12/31/20 12:46 Review of Systems Review of Systems Narrative: All 12 point systems reviewed with the patient and are negative except otherwise documented. Exam Vital Signs (past 8 hours): - 08/27/21 16:00 08/27/21 16:01 08/27/21 16:30 Temperature Pulse Rate 67 69 71 Respiratory Rate 24 29 H 23 Blood Pressure 128/64 106/67 Pulse Oximetry 95 96 96 08/27/21 17:30 08/27/21 18:00 08/27/21 18:30 Temperature Pulse Rate 73 70 68 Respiratory Rate 20 19 25 H Blood Pressure Pulse Oximetry 95 94 98 08/27/21 19:00 08/27/21 19:29 08/27/21 19:30 Temperature Pulse Rate 63 66 65 Respiratory Rate 18 16 16 Blood Pressure 111/53 L 105/58 L Pulse Oximetry 98 99 99 08/27/21 20:00 08/27/21 20:30 08/27/21 20:45 Temperature 98.9 F Pulse Rate 63 65 71 Respiratory Rate 21 20 17 Blood Pressure 107/59 L 102/56 L 120/73 Pulse Oximetry 99 99 94 08/27/21 22:00 08/27/21 22:06 08/27/21 22:42 Temperature 98.7 F Pulse Rate 60 Respiratory Rate 17 Blood Pressure 93/44 L 114/66 Pulse Oximetry 100 93 Oxygen Delivery Method Room Air Narrative Exam Narrative: General: Patient is a well-developed, well-nourished female, ill appearing but in no acute distress at this time. HEENT: Normocephalic, atraumatic, extraocular muscles intact, oral pharynx is clear and mucous membranes are moist. Neck is supple and symmetric, trachea is midline, no adenopathy, no thyroid enlargement, nontender, no masses palpated. Negative for JVD Chest: Normal AP diameter and contour without kyphoscoliosis, no nasal flaring, retractions, or tachypneic labored breathing. Lungs: Auscultation of all lung coffman are clear without adventitious sounds, wheezes, rhonchi, or rales. Cardio: S1 & S2 with regular rate and rhythm without murmur, rubs, or gallops, no carotid bruit, no cardiac pulsations present. Abdomen: Soft tender to palpation in the epigastric region. Bowel sounds are hypoactive in the LT lower quad, unable to auscultate in the left upper quadrant, and hyperactive in the remaining right upper and lower quadrants, no CVA tenderness. Musculoskeletal: Muscle strength and tone are equal within normal limits, no deformity, crepitus, effusions, cyanosis, clubbing or edema present. Full range of motion intact radial and pedal pulses are normal. Skin: Warm dry and intact without rashes, ulcerations or petechiae. Neuro: Alert and orientated x3, strength is +5/5 in all extremities, sensation to touch intact, no gross deficits noted of cranial nerves. Psych: Patient has a well-kept appearance, appropriate affect, mental status attitude thought context and judgment are appropriate for age. Objective Labs Result Diagrams: 08/27/21 14:45 08/27/21 14:45 Labs: Laboratory Results - last 24 hr 08/27/21 08/27/21 08/27/21 14:40 14:40 14:40 WBC RBC Hgb Hct MCV MCH MCHC RDW Plt Count Neut % (Auto) Lymph % (Auto) [place] % (Auto) Eos % (Auto) Baso % (Auto) Neut # (Auto) Lymph # (Auto) [place] # (Auto) Eos # (Auto) Baso # (Auto) PT INR APTT VBG pH VBG pCO2 VBG pO2 VBG HCO3 VBG Total CO2 VBG O2 Saturation VBG Base Excess Sodium Potassium Chloride Carbon Dioxide BUN Creatinine Estimated GFR BUN/Creatinine Ratio Glucose Hemoglobin A1c 5.4 Lactate 1.4 Calcium Magnesium Total Bilirubin AST ALT Alkaline Phosphatase Total Protein Albumin Globulin Albumin/Globulin Ratio Lipase Procalcitonin 0.10 Urine Color Urine Appearance Urine pH Ur Specific [place] Urine Protein Urine Glucose (UA) Urine Ketones Urine Occult Blood Urine Nitrate Urine Bilirubin Ur Bilirubin Confirm Urine Urobilinogen Ur Leukocyte Esterase Urine RBC Urine WBC Ur Squamous Epith Cells Ur Transition Epith Cell Urine Bacteria Hyaline Casts Granular Casts Urine Mucus Ur Culture Indicated? Chlamy pneumoniae PCR Adenovirus (PCR) B. pertussis DNA (PCR) B.parapertussis DNA PCR Coronavirus OC43 (PCR) Coronavirus HKU1 (PCR) Coronavirus 229E (PCR) SARS-CoV-2 (PCR) Coronavirus NL63 (PCR) Human Metapneumovir PCR Influenza Type A (PCR) Influenza Type B (PCR) M. pneumoniae (PCR) Parainfluenza 1 (PCR) Parainfluenza 2 (PCR) Parainfluenza 3 (PCR) Parainfluenza 4 (PCR) RSV (PCR) Entero/Rhino (PCR) 08/27/21 08/27/21 08/27/21 14:40 14:45 14:45 WBC 20.6 H RBC 5.23 H Hgb 14.5 Hct 43.1 MCV 82.3 MCH 27.8 MCHC 33.8 RDW 14.0 Plt Count 306 Neut % (Auto) 85.1 H Lymph % (Auto) 9.6 L [place] % (Auto) 4.3 Eos % (Auto) 0.1 L Baso % (Auto) 0.9 Neut # (Auto) 35894 H Lymph # (Auto) 2000 [place] # (Auto) 900 Eos # (Auto) 0 Baso # (Auto) 200 H PT INR APTT VBG pH VBG pCO2 VBG pO2 VBG HCO3 VBG Total CO2 VBG O2 Saturation VBG Base Excess Sodium 136 L Potassium 4.0 Chloride 99 Carbon Dioxide 29 BUN 24 H Creatinine 0.70 Estimated GFR > 60.0 BUN/Creatinine Ratio 34.3 H Glucose 138 H Hemoglobin A1c Lactate Calcium 9.8 Magnesium 2.0 Total Bilirubin 1.0 AST 25 ALT 18 Alkaline Phosphatase 112 Total Protein 7.9 Albumin 4.2 Globulin 3.7 Albumin/Globulin Ratio 1.1 Lipase 14 L Procalcitonin Urine Color Urine Appearance Urine pH Ur Specific [place] Urine Protein Urine Glucose (UA) Urine Ketones Urine Occult Blood Urine Nitrate Urine Bilirubin Ur Bilirubin Confirm Urine Urobilinogen Ur Leukocyte Esterase Urine RBC Urine WBC Ur Squamous Epith Cells Ur Transition Epith Cell Urine Bacteria Hyaline Casts Granular Casts Urine Mucus Ur Culture Indicated? Chlamy pneumoniae PCR Adenovirus (PCR) B. pertussis DNA (PCR) B.parapertussis DNA PCR Coronavirus OC43 (PCR) Coronavirus HKU1 (PCR) Coronavirus 229E (PCR) SARS-CoV-2 (PCR) Coronavirus NL63 (PCR) Human Metapneumovir PCR Influenza Type A (PCR) Influenza Type B (PCR) M. pneumoniae (PCR) Parainfluenza 1 (PCR) Parainfluenza 2 (PCR) Parainfluenza 3 (PCR) Parainfluenza 4 (PCR) RSV (PCR) Entero/Rhino (PCR) 08/27/21 08/27/21 08/27/21 14:45 15:50 16:05 WBC RBC Hgb Hct MCV MCH MCHC RDW Plt Count Neut % (Auto) Lymph % (Auto) [place] % (Auto) Eos % (Auto) Baso % (Auto) Neut # (Auto) Lymph # (Auto) [place] # (Auto) Eos # (Auto) Baso # (Auto) PT 15.5 H INR 1.4 H APTT 31 VBG pH 7.50 H VBG pCO2 34.9 L VBG pO2 63 H VBG HCO3 27 VBG Total CO2 28 VBG O2 Saturation 94 H VBG Base Excess 4.0 Sodium Potassium Chloride Carbon Dioxide BUN Creatinine Estimated GFR BUN/Creatinine Ratio Glucose Hemoglobin A1c Lactate Calcium Magnesium Total Bilirubin AST ALT Alkaline Phosphatase Total Protein Albumin Globulin Albumin/Globulin Ratio Lipase Procalcitonin Urine Color Urine Appearance Urine pH Ur Specific [place] Urine Protein Urine Glucose (UA) Urine Ketones Urine Occult Blood Urine Nitrate Urine Bilirubin Ur Bilirubin Confirm Urine Urobilinogen Ur Leukocyte Esterase Urine RBC Urine WBC Ur Squamous Epith Cells Ur Transition Epith Cell Urine Bacteria Hyaline Casts Granular Casts Urine Mucus Ur Culture Indicated? Chlamy pneumoniae PCR Not detected Adenovirus (PCR) Not detected B. pertussis DNA (PCR) Not detected B.parapertussis DNA PCR Not detected Coronavirus OC43 (PCR) Not detected Coronavirus HKU1 (PCR) Not detected Coronavirus 229E (PCR) Not detected SARS-CoV-2 (PCR) Not detected Coronavirus NL63 (PCR) Not detected Human Metapneumovir PCR Not detected Influenza Type A (PCR) Not detected Influenza Type B (PCR) Not detected M. pneumoniae (PCR) Not detected Parainfluenza 1 (PCR) Not detected Parainfluenza 2 (PCR) Not detected Parainfluenza 3 (PCR) Not detected Parainfluenza 4 (PCR) Not detected RSV (PCR) Not detected Entero/Rhino (PCR) Not detected 08/27/21 16:45 WBC RBC Hgb Hct MCV MCH MCHC RDW Plt Count Neut % (Auto) Lymph % (Auto) [place] % (Auto) Eos % (Auto) Baso % (Auto) Neut # (Auto) Lymph # (Auto) [place] # (Auto) Eos # (Auto) Baso # (Auto) PT INR APTT VBG pH VBG pCO2 VBG pO2 VBG HCO3 VBG Total CO2 VBG O2 Saturation VBG Base Excess Sodium Potassium Chloride Carbon Dioxide BUN Creatinine Estimated GFR BUN/Creatinine Ratio Glucose Hemoglobin A1c Lactate Calcium Magnesium Total Bilirubin AST ALT Alkaline Phosphatase Total Protein Albumin Globulin Albumin/Globulin Ratio Lipase Procalcitonin Urine Color Yellow Urine Appearance Sl cloudy Urine pH 5.5 Ur Specific [place] 1.025 Urine Protein Trace H Urine Glucose (UA) Negative Urine Ketones 1+ H Urine Occult Blood Negative Urine Nitrate Negative Urine Bilirubin 1+ H Ur Bilirubin Confirm Negative Urine Urobilinogen 0.2 Ur Leukocyte Esterase Trace H Urine RBC None seen Urine WBC 1-5/hpf Ur Squamous Epith Cells 5-10 /hpf H Ur Transition Epith Cell 1-5/hpf Urine Bacteria Moderate (10-30) H Hyaline Casts 1-5/lpf Granular Casts 1-5/lpf Urine Mucus 2+ H Ur Culture Indicated? Cult not indicated Chlamy pneumoniae PCR Adenovirus (PCR) B. pertussis DNA (PCR) B.parapertussis DNA PCR Coronavirus OC43 (PCR) Coronavirus HKU1 (PCR) Coronavirus 229E (PCR) SARS-CoV-2 (PCR) Coronavirus NL63 (PCR) Human Metapneumovir PCR Influenza Type A (PCR) Influenza Type B (PCR) M. pneumoniae (PCR) Parainfluenza 1 (PCR) Parainfluenza 2 (PCR) Parainfluenza 3 (PCR) Parainfluenza 4 (PCR) RSV (PCR) Entero/Rhino (PCR) Assessment & Plan Assessment & Plan narrative: Lamar Ceja is a 65-year-old female with past medical history hiatal hernia, status post gastric bypass (2017), bladder suspension, total hysterectomy, recurrent aspiration pneumonia, obesity, B12 nutritional deficiency, essential hypertension, osteoarthritis, frequent UTI's, depression that presented to the ED with 8 days of nausea, vomiting, diarrhea, abdominal cramping.? Patient admitted for sepsis secondary to small-bowel obstruction containing a small periumbilical hernia, with possible viral pneumonia. 1. SIRS/Sepsis secondary to small-bowel obstruction containing a small periumbilical hernia, acute, hiatal hernia, acute on chronic, likely the result complications from history of gastric bypass and total hysterectomy, morbid obesity, acute on chronic, pneumonia, acute, possibly secondary to GERD with esophagitis in the setting of a history of aspiration pneumonia due to gastric secretions, acute on chronic, present on admission -suspect that pneumonia is viral in nature but could possibly be bacterial secondary to aspiration pneumonia, blood cultures were collected in the ED will order sputum cultures. -patient met SIRS criteria due to respiratory rate> 20, WBC> 12,000, source of infection small-bowel, hypotension despite sepsis rehydration, and elevated temp -temp 99.6?, presenting BP 165/89, upon admit BP is 106/67, RR 23 WBC 20.6, neutrophils 17,500 and Baso# 200. -Pneumonia: respiratory consult, incentive spirometry, albuterol inhaler q.4 hours as needed-Treat patient for symptomatic respiratory symptoms. Goal 02 sat >90% -chest x-ray demonstrated right perihilar atelectasis and infiltrate as well as cardiomegaly accentuated by low lung volumes. CT: small reticulonodular infiltrate in the right lower lobe could be infectious or inflammatory. -VBG pH 7.5, pCO2 34.9, PO2 63, HC03 27, TCO2 28, O2 sat 94% on room air, base excess 4.0. -Gerd/Aspiration poss Pneumonia: initiated IV Protonix 40 mg once daily to be changed to p.o. once patient is no longer NPO. Recomend on d/c pt be prescribed pulse 3 month treatment of daily omeprazole 20 mg, and referral to Gastroenterology for outpatient follow-up, and EGD. - lactate WNL, lipase 14, procalcitonin WNL, respiratory panel is WNL, -suggestive that possible pneumonia is viral in nature. -Rule out UTI, and diabetes as contributing factors- urinalysis demonstrated proteins, ketones, moderate bacteria, BS 138-ordered urine culture and A1C due to patient's frequent UTIs, and presentation. -In ED given Zosyn and vancomycin. -patient to be monitored and managed for sepsis, acute respiratory failure, worsening abdominal pain, nausea and vomiting -SBO -NPO -Because the patient's complicated abdominal surgical history will implement empiric antibiotic treatment for high risk intra-abdominal infection: Zosyn 3.337 mg Q 8 hours -LR at 60 cc/HR- Will also continue hydration due to patient's continued low blood pressure. -vomiting has resolved at this time, if vomiting continues despite antiemetics will place NG tube. -CT of abdomen and pelvis demonstrated ?small-bowel obstruction related bowel containing small periumbilical hernia.? Small bowel is dilated up to 4.7 cm.? No free air or free fluid. Prior gastric surgery and small hiatal hernia present, cholecystectomy, and a nonobstructive right renal calculus and left renal peripelvic cysts.? -Dr. Zuniga general surgeon was consulted in ED, for the SBO, he will consult on the case tomorrow and is considering taking the patient to the OR. -INR 1.4 upon admit, to be repeated in a.m. 2. Hypertensive cardiomegaly, found on imaging, likely secondary to essential hypertension, acute on chronic, present on admission -presenting BP 165/89, upon admit BP is 106/67, last documented BP on 10/14/2020 46/98. Patient reports she has not taken her amlodipine in 8 days. -holding amlodipine at this time due to hypotension & NPO -vital signs Q hour until BP is greater than 120/70 x 2 then may change to Q 4 hour vital signs -monitor for septic shock 3. Obesity as evidence by BMI of 33.7 acute on chronic, present on admission -dietary consult ordered for dietary counseling 4. Overactive bladder with a history chronic UTIs, acute on chronic, present on admission -urine culture ordered -holding patient's solifenacin 5. Depression, chronic, present on admission -patient denies depression or suicidal ideation at this time. -offered patient fluoxetine states that she has not taken it in 8 days and she feels fine and refused medication. -holding fluoxetine while patient is NPO Code status:DNR Surrogate decision maker: Daquan Ceja Spouse COVID PCR:Negative COVID vaccination: Moderna fully vaccinated 2020 DVT/VTE prophylaxis: Medication prophylaxis held at this time due to possible OR tomorrow, SCDs only Disposition: Patient admitted for sepsis secondary to small-bowel obstruction likely to go to the OR tomorrow, expected length of stay greater than 2 midnights. I have utilized all available immediate resources to obtain, update, or review the patient's current medications. I confirmed that the patient's advanced care plan is present, Code status is documented and/or surrogate decision maker is listed in the patient's medical record. Time Spent With Patient Critical Care time: I spent a total of [] minutes of critical care time on this patient's care today; this time is exclusive of procedural time. Scores GCS Dawson coma scale eye opening: Spontaneous Reyna coma scale verbal response: Orientated Dawson coma scale motor response: Obey commands Reyna coma scale total score: 15 Quality VTE Deep Vein Thrombosis/Pulmonary Embolism Present on Admission: No
[2021-08-27 23:30] LABS: Lactate (Lactic Acid) 1.2 mmol/L (0.7-2.1)
[2021-08-28] VITALS (34 sets, daily range): BP systolic 110–158; BP diastolic 55–91; PULSE 66–94; RESP 14–84; TEMP 36.3–38.1; O2SAT 18–96; BMI 33.7
[2021-08-28] MEDS: PIPERACILLIN/TAZO 3.375 GM in SODIUM CHLORIDE 0.9% 100 ML 25 ML IV (04:13)
--- NOTE | 2021-08-28 06:36 | PC.NURSE ---
Late Entry: Patient arrived from the ED via stretcher at 2043. Patient was A/O and on RA, denied pain, N/V. Patient was oriented to room, call light, and fall precautions. IV fluids were started along with IV antibiotics. Bed in lowest locked position, call light and belongings within reach, and no other complaints at this time.
[2021-08-28 06:53] LABS: Add Manual Diff / Slide Review NO; Basophils Absolute Auto 0 /uL (0-100); Basophils Percent Auto 0.5 % (0-2); Eosinophils Absolute Auto 100 /uL (0-450); Eosinophils Percent Auto 1.5 % (2-4); Hematocrit 36.3 % (36-46); Hemoglobin 12.4 g/dL (12.0-16.0); INR 1.3 (0.9-1.3); Lymphocytes Absolute Auto 1300 /uL (1100-4500); Lymphocytes Percent Auto 14.7 % (25-40); Mean Corpuscular Hemoglobin 28.4 PG (26-34); Mean Corpuscular Volume 83.6 fL (80-100); Monocytes Absolute Auto 500 /uL (0-900); Monocytes Percent Auto 5.8 % (3-14); Neutrophils Absolute Auto 6800 /uL (1500-7000); Neutrophils Percent Auto 77.5 % (50-75); Platelet Count 234 X10^3/uL (150-400); Red Blood Cell Count 4.35 X10^6/uL (4.0-5.2); Red Cell Distribution Width 14.2 % (11.6-14.8); White Blood Cell Count 8.8 X10^3/uL (4.5-11.0)
[2021-08-28 07:00] LABS: BUN Creatinine Ratio 33.3 (6-22); Blood Urea Nitrogen 21 mg/dL (7-17); Calcium 8.8 mg/dL (8.4-10.2); Carbon Dioxide 29 mmol/L (22-32); Chloride 107 mmol/L (98-107); Estimated Glomerular Filt Rate > 60.0 mL/min (>60); Glucose 94 mg/dL (80-110); HEMOLYSIS 17 (0-50); Potassium 3.8 mmol/L (3.4-5.1); Sodium 138 mmol/L (137-145)
--- NOTE | 2021-08-28 07:59 | PC.NURSE ---
Addendum entered by María James R.N. 08/28/21 18:02: Patient up and ambulated around room , gait is steady. Steri strips to abdomen CDI. Removed NG tube as ordered. Addendum entered by María James R.N. 08/28/21 12:04: Patient back to room at 1145 sleepy but arousable. Rates pain a 10/10 but drifts right back to sleep, received vistaril IM in PACU. NG to LIS, martinez patent. Abdominal incision intact, binder in place. Sats on 2L 95% Original Note: Patient taken to OR at 0800.
--- NOTE | 2021-08-28 08:07 | PM.CN ---
History of Present Illness Consult details Chief complaint: N/V/D, dehydrated- Sent by Narrative: 65-year-old woman admitted to the hospital with a small-bowel obstruction. She has had multiple prior abdominal surgeries. CT abdomen pelvis demonstrates small-bowel obstruction with a transition point within the anterior abdominal wall near the umbilicus. Hernia was non reducible and tender in the emergency department. She has been vomiting all night unable to pass flatus or have a bowel movement. Laboratory studies WBC 9 today from 20 last night at admission. 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 Meds Home Medications and Allergies Home Medications Medication Instructions Recorded Confirmed Type fluoxetine 20 mg tablet 20 mg PO QDAY #90 tab 09/12/16 08/27/21 Rx amlodipine 10 mg tablet 10 mg PO DAILY 12/27/20 08/27/21 History solifenacin 10 mg tablet 10 mg PO DAILY 08/27/21 08/27/21 History ursodiol 500 mg tablet 500 mg PO DAILY 08/27/21 08/27/21 History Allergies Allergy/AdvReac Type Severity Reaction Status Date / Time levofloxacin [From [facility]] Allergy Mild Verified 12/31/20 12:46 Exam Vital Signs (past 8 hours): - 08/28/21 01:00 08/28/21 02:00 08/28/21 04:00 Temperature 99.1 F Pulse Rate 70 81 68 Respiratory Rate 17 Blood Pressure 125/65 138/68 120/62 Pulse Oximetry 94 93 93 08/28/21 08:01 Temperature Pulse Rate Respiratory Rate Blood Pressure Pulse Oximetry 94 Oxygen Delivery Method Room Air Oxygen Flow Rate 0 Narrative Exam Narrative: General adult woman alert oriented no acute distress Chest nonlabored respiration Abdomen moderately distended. Tender at the umbilicus. There feels to be a loop of bowel within the abdominal wall here. No peritonitis Extremities warm well perfused Objective Labs Result Diagrams: 08/28/21 06:10 08/28/21 06:10 Labs: Laboratory Results - last 24 hr 08/27/21 08/27/21 08/27/21 14:40 14:40 14:40 WBC RBC Hgb Hct MCV MCH MCHC RDW Plt Count Neut % (Auto) Lymph % (Auto) [place] % (Auto) Eos % (Auto) Baso % (Auto) Neut # (Auto) Lymph # (Auto) [place] # (Auto) Eos # (Auto) Baso # (Auto) PT INR APTT VBG pH VBG pCO2 VBG pO2 VBG HCO3 VBG Total CO2 VBG O2 Saturation VBG Base Excess Sodium Potassium Chloride Carbon Dioxide BUN Creatinine Estimated GFR BUN/Creatinine Ratio Glucose Hemoglobin A1c 5.4 Lactate 1.4 Calcium Magnesium Total Bilirubin AST ALT Alkaline Phosphatase Total Protein Albumin Globulin Albumin/Globulin Ratio Lipase Procalcitonin 0.10 Urine Color Urine Appearance Urine pH Ur Specific Alexander Urine Protein Urine Glucose (UA) Urine Ketones Urine Occult Blood Urine Nitrate Urine Bilirubin Ur Bilirubin Confirm Urine Urobilinogen Ur Leukocyte Esterase Urine RBC Urine WBC Ur Squamous Epith Cells Ur Transition Epith Cell Urine Bacteria Hyaline Casts Granular Casts Urine Mucus Ur Culture Indicated? Chlamy pneumoniae PCR Adenovirus (PCR) B. pertussis DNA (PCR) B.parapertussis DNA PCR Coronavirus OC43 (PCR) Coronavirus HKU1 (PCR) Coronavirus 229E (PCR) SARS-CoV-2 (PCR) Coronavirus NL63 (PCR) Human Metapneumovir PCR Influenza Type A (PCR) Influenza Type B (PCR) M. pneumoniae (PCR) Parainfluenza 1 (PCR) Parainfluenza 2 (PCR) Parainfluenza 3 (PCR) Parainfluenza 4 (PCR) RSV (PCR) Entero/Rhino (PCR) 08/27/21 08/27/21 08/27/21 14:40 14:45 14:45 WBC 20.6 H RBC 5.23 H Hgb 14.5 Hct 43.1 MCV 82.3 MCH 27.8 MCHC 33.8 RDW 14.0 Plt Count 306 Neut % (Auto) 85.1 H Lymph % (Auto) 9.6 L [place] % (Auto) 4.3 Eos % (Auto) 0.1 L Baso % (Auto) 0.9 Neut # (Auto) 62257 H Lymph # (Auto) 2000 [place] # (Auto) 900 Eos # (Auto) 0 Baso # (Auto) 200 H PT INR APTT VBG pH VBG pCO2 VBG pO2 VBG HCO3 VBG Total CO2 VBG O2 Saturation VBG Base Excess Sodium 136 L Potassium 4.0 Chloride 99 Carbon Dioxide 29 BUN 24 H Creatinine 0.70 Estimated GFR > 60.0 BUN/Creatinine Ratio 34.3 H Glucose 138 H Hemoglobin A1c Lactate Calcium 9.8 Magnesium 2.0 Total Bilirubin 1.0 AST 25 ALT 18 Alkaline Phosphatase 112 Total Protein 7.9 Albumin 4.2 Globulin 3.7 Albumin/Globulin Ratio 1.1 Lipase 14 L Procalcitonin Urine Color Urine Appearance Urine pH Ur Specific Alexander Urine Protein Urine Glucose (UA) Urine Ketones Urine Occult Blood Urine Nitrate Urine Bilirubin Ur Bilirubin Confirm Urine Urobilinogen Ur Leukocyte Esterase Urine RBC Urine WBC Ur Squamous Epith Cells Ur Transition Epith Cell Urine Bacteria Hyaline Casts Granular Casts Urine Mucus Ur Culture Indicated? Chlamy pneumoniae PCR Adenovirus (PCR) B. pertussis DNA (PCR) B.parapertussis DNA PCR Coronavirus OC43 (PCR) Coronavirus HKU1 (PCR) Coronavirus 229E (PCR) SARS-CoV-2 (PCR) Coronavirus NL63 (PCR) Human Metapneumovir PCR Influenza Type A (PCR) Influenza Type B (PCR) M. pneumoniae (PCR) Parainfluenza 1 (PCR) Parainfluenza 2 (PCR) Parainfluenza 3 (PCR) Parainfluenza 4 (PCR) RSV (PCR) Entero/Rhino (PCR) 08/27/21 08/27/21 08/27/21 14:45 15:50 15:50 WBC RBC Hgb Hct MCV MCH MCHC RDW Plt Count Neut % (Auto) Lymph % (Auto) [place] % (Auto) Eos % (Auto) Baso % (Auto) Neut # (Auto) Lymph # (Auto) [place] # (Auto) Eos # (Auto) Baso # (Auto) PT 15.5 H INR 1.4 H APTT 31 VBG pH VBG pCO2 VBG pO2 VBG HCO3 VBG Total CO2 VBG O2 Saturation VBG Base Excess Sodium Potassium Chloride Carbon Dioxide BUN Creatinine Estimated GFR BUN/Creatinine Ratio Glucose Hemoglobin A1c Lactate 1.2 Calcium Magnesium Total Bilirubin AST ALT Alkaline Phosphatase Total Protein Albumin Globulin Albumin/Globulin Ratio Lipase Procalcitonin Urine Color Urine Appearance Urine pH Ur Specific Alexander Urine Protein Urine Glucose (UA) Urine Ketones Urine Occult Blood Urine Nitrate Urine Bilirubin Ur Bilirubin Confirm Urine Urobilinogen Ur Leukocyte Esterase Urine RBC Urine WBC Ur Squamous Epith Cells Ur Transition Epith Cell Urine Bacteria Hyaline Casts Granular Casts Urine Mucus Ur Culture Indicated? Chlamy pneumoniae PCR Not detected Adenovirus (PCR) Not detected B. pertussis DNA (PCR) Not detected B.parapertussis DNA PCR Not detected Coronavirus OC43 (PCR) Not detected Coronavirus HKU1 (PCR) Not detected Coronavirus 229E (PCR) Not detected SARS-CoV-2 (PCR) Not detected Coronavirus NL63 (PCR) Not detected Human Metapneumovir PCR Not detected Influenza Type A (PCR) Not detected Influenza Type B (PCR) Not detected M. pneumoniae (PCR) Not detected Parainfluenza 1 (PCR) Not detected Parainfluenza 2 (PCR) Not detected Parainfluenza 3 (PCR) Not detected Parainfluenza 4 (PCR) Not detected RSV (PCR) Not detected Entero/Rhino (PCR) Not detected 08/27/21 08/27/21 08/28/21 16:05 16:45 06:10 WBC 8.8 D RBC 4.35 Hgb 12.4 Hct 36.3 MCV 83.6 MCH 28.4 MCHC 34.0 RDW 14.2 Plt Count 234 Neut % (Auto) 77.5 H Lymph % (Auto) 14.7 L [place] % (Auto) 5.8 Eos % (Auto) 1.5 L Baso % (Auto) 0.5 Neut # (Auto) 6800 Lymph # (Auto) 1300 [place] # (Auto) 500 Eos # (Auto) 100 Baso # (Auto) 0 PT INR APTT VBG pH 7.50 H VBG pCO2 34.9 L VBG pO2 63 H VBG HCO3 27 VBG Total CO2 28 VBG O2 Saturation 94 H VBG Base Excess 4.0 Sodium Potassium Chloride Carbon Dioxide BUN Creatinine Estimated GFR BUN/Creatinine Ratio Glucose Hemoglobin A1c Lactate Calcium Magnesium Total Bilirubin AST ALT Alkaline Phosphatase Total Protein Albumin Globulin Albumin/Globulin Ratio Lipase Procalcitonin Urine Color Yellow Urine Appearance Sl cloudy Urine pH 5.5 Ur Specific Alexander 1.025 Urine Protein Trace H Urine Glucose (UA) Negative Urine Ketones 1+ H Urine Occult Blood Negative Urine Nitrate Negative Urine Bilirubin 1+ H Ur Bilirubin Confirm Negative Urine Urobilinogen 0.2 Ur Leukocyte Esterase Trace H Urine RBC None seen Urine WBC 1-5/hpf Ur Squamous Epith Cells 5-10 /hpf H Ur Transition Epith Cell 1-5/hpf Urine Bacteria Moderate (10-30) H Hyaline Casts 1-5/lpf Granular Casts 1-5/lpf Urine Mucus 2+ H Ur Culture Indicated? Cult not indicated Chlamy pneumoniae PCR Adenovirus (PCR) B. pertussis DNA (PCR) B.parapertussis DNA PCR Coronavirus OC43 (PCR) Coronavirus HKU1 (PCR) Coronavirus 229E (PCR) SARS-CoV-2 (PCR) Coronavirus NL63 (PCR) Human Metapneumovir PCR Influenza Type A (PCR) Influenza Type B (PCR) M. pneumoniae (PCR) Parainfluenza 1 (PCR) Parainfluenza 2 (PCR) Parainfluenza 3 (PCR) Parainfluenza 4 (PCR) RSV (PCR) Entero/Rhino (PCR) 08/28/21 08/28/21 06:10 06:10 WBC RBC Hgb Hct MCV MCH MCHC RDW Plt Count Neut % (Auto) Lymph % (Auto) [place] % (Auto) Eos % (Auto) Baso % (Auto) Neut # (Auto) Lymph # (Auto) [place] # (Auto) Eos # (Auto) Baso # (Auto) PT 15.0 H INR 1.3 APTT VBG pH VBG pCO2 VBG pO2 VBG HCO3 VBG Total CO2 VBG O2 Saturation VBG Base Excess Sodium 138 Potassium 3.8 Chloride 107 Carbon Dioxide 29 BUN 21 H Creatinine 0.63 Estimated GFR > 60.0 BUN/Creatinine Ratio 33.3 H Glucose 94 Hemoglobin A1c Lactate Calcium 8.8 Magnesium Total Bilirubin AST ALT Alkaline Phosphatase Total Protein Albumin Globulin Albumin/Globulin Ratio Lipase Procalcitonin Urine Color Urine Appearance Urine pH Ur Specific [place] Urine Protein Urine Glucose (UA) Urine Ketones Urine Occult Blood Urine Nitrate Urine Bilirubin Ur Bilirubin Confirm Urine Urobilinogen Ur Leukocyte Esterase Urine RBC Urine WBC Ur Squamous Epith Cells Ur Transition Epith Cell Urine Bacteria Hyaline Casts Granular Casts Urine Mucus Ur Culture Indicated? Chlamy pneumoniae PCR Adenovirus (PCR) B. pertussis DNA (PCR) B.parapertussis DNA PCR Coronavirus OC43 (PCR) Coronavirus HKU1 (PCR) Coronavirus 229E (PCR) SARS-CoV-2 (PCR) Coronavirus NL63 (PCR) Human Metapneumovir PCR Influenza Type A (PCR) Influenza Type B (PCR) M. pneumoniae (PCR) Parainfluenza 1 (PCR) Parainfluenza 2 (PCR) Parainfluenza 3 (PCR) Parainfluenza 4 (PCR) RSV (PCR) Entero/Rhino (PCR) PFSH Medical History (Updated 08/27/21 @ 23:[address] [facility] Chicken pox Depression Essential hypertension History of urinary incontinence (~1992) Measles Mumps Osteoarthritis Scarlet fever Surgical History H/O oophorectomy (~1988) History of bladder suspension procedure (~1998) History of carpal tunnel release (~1997) History of cataract removal with insertion of prosthetic lens History of Neil-en-Y gastric bypass (~08/2017) History of total abdominal hysterectomy Hx of cholecystectomy Family History Father Cancer Mother History of heart disease Sister Suicide Sister Kidney disease Grandfather History of emphysema Social History household members: spouse Tobacco & Substance Use Smoking Status: Former smoker alcohol intake: current Assessment & Plan Assessment and plan (1) SBO (small bowel obstruction): Status: Acute Assessment & Plan narrative: 65-year-old woman with a incarcerated ventral hernia causing a small-bowel obstruction. Personally reviewed her CT scan demonstrates a loop of small bowel with a transition point within the hernia. I discussed the findings with the patient recommended that we proceed to the operating room for exploratory laparotomy possible bowel resection depending on the viability of the bowel within the hernia. Operative risks were discussed including bleeding, infection, damage to surrounding structures hernia recurrence. I explained her that the use of mesh to reinforce the repair will be dependent on the viability of the bowel and a with a running bowel resection is required. Questions have been answered she is in agreement with this plan proceed to the operating room. Time Spent With Patient Critical Care time: I spent a total of [] minutes of critical care time on this patient's care today; this time is exclusive of procedural time.
--- NOTE | 2021-08-28 09:11 | SUR.OPER ---
Supine on padded OR bed, head on pillow, arms secured on padded arm boards at <90 degrees abduction, legs uncrossed, safety belt at thigh, tape over blanket over lower legs.
--- NOTE | 2021-08-28 09:41 | DIET.CONS ---
Dietary Consultation Note Admission Date: 08/27/2021 18:48 Please see inpatient dietary note from 2019 on this patient undergoing hernia surgery today. Pt continuing to regain weight after weight loss surgery, pt has gained 33# over 2y and 46# above her lowest weight after surgery. Pt high risk for malnutrition secondary to RYGB complications and non-compliance to vitamin supplementation. 63y F digestive complications post-bariatric Neil en y procedure 08/23 WT: starting wt presurgery 08/23- 250lb lost 120# lowest wt 132# now 145# (gain over 6 weeks) Assessment: Pt resorting to eating sweets, can't tolerate other foods. doesn't like eggs anymore, doesn't like protein drinks, chicken too dry maybe if sauce, no grease or white cheese dr took out too much entire stomach esophagus drains right into SI. Pt can lean over toilet and vomit without trying. has to stop eating 7-8h before bed or vomits, no nausea more of a pressure only relieved by emesis. Meds: if takes caraphate med before bed, not as bad, but currently taking double dose and up to 4x/d, helps to coagulate refluxing bile. Pt not taking vitamins (MVI, D, Calcium, B12) she threw them away. Usual intake: B 3-4a 1 c coffee c milk c cookie or something sweet 4h later anything with sugar 2/3 c high pro cereals (burned out) c milk crackers and sugary foods throughout day, hungry every 30 min. Nutrition Diagnosis: Inadequate PRO intake r/t px in sternum as food feels stuck aeb 2/3 c high PRO cereal as main PRO source in day providing less than 20% of estimated needs, aversion to PRO foods b/c too dry or too greasy causing GI distress, pt reports eating only sugary foods. 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 Interventions: Educated pt on critical importance of supplements, problem solved a way to get liquid/sublingual versions rather than pill (more likely to consume). Collaborated on high PRO snack ideas. Acceptable PRO foods per pt: high pro cereal, egg (doesn't prefer), peanut butter c soda crackers, try cottage cheese. Educated pt on hunger satiety scale, honoring hunger, eating when 3 and stopping when 7. Keeping snacks in car. Monitoring/Evaluations: Pt interested in continuation of care. Electronically Signed by: Eunice Ahmadi 08/28/21 09:41 Clinical Dietitian [address] [id number]
--- NOTE | 2021-08-28 10:18 | PM.OP.1 ---
Operative Date/Time/Diagnoses Date of procedure: 08/28/21 Time of procedure: 10:18 Pre-op diagnosis: Incarcerated ventral hernia Small-bowel obstruction Post-op diagnosis: same Procedure & Clinicians Procedure: Exploratory laparotomy Lysis of adhesions Same procedure as scheduled: Yes Indications: 65-year-old woman with previous abdominal surgery presents with a small-bowel obstruction secondary to an incarcerated ventral hernia Surgeon: Jacek Koch Anesthesia Type: General Operative Notes Findings: Viable small bowel incarcerated within a infra umbilical ventral hernia. Specimen(s): none sent Estimated Blood Loss (mL): 20 Procedure in detail: Patient was brought to the operating room placed supine on the table. Bilateral lower extremity compression devices were applied. She received Zosyn prior to skin incision. General anesthesia was induced and she was intubated with an endotracheal tube. A Reyes catheter was then sterilely placed. She was prepped and draped in sterile fashion. Time-out was performed. A lower midline incision was made. The subcutaneous tissues were carefully divided. The fascia was grasped elevated and sharply incised at the superior aspect of the incision. The fascia was then carefully opened under direct visualization. Within the infra umbilical midline there was a loop of small bowel incarcerated within the fascia. The adhesions between the small bowel and the ventral hernia were carefully lysed with sharp dissection. It appeared that she had a previous ventral hernia repair. The transition point was clearly visible the small bowel was viable. The hernia sac was resected from the fascia. The midline fascia was then closed in running fashion using 1. PDS from above and below. Subcutaneous tissues were reapproximated with 3-0 Vicryl. Skin closed with 4-0 Monocryl followed by Dermabond and Steri-Strips. She tolerated the operation well and was transferred to recovery in stable condition. Complications: none Post-operative Condition: stable Disposition: Acute Care
[2021-08-28] MEDS: hydrOXYzine 50 MG/ML INJ 25 MG IM (10:36)
--- NOTE | 2021-08-28 10:51 | SUR.PHASEI ---
1015 hrs: Pt arrives PACU breathing unassisted. Report from JOHANNA Anthony and Dr Quarles. Pt placed on O2 NC 4L for sats below 90%
--- NOTE | 2021-08-28 11:04 | SUR.PHASEI ---
1104 hrs: Pt lying still with eyes closed, sats 90% on 4 liters NC. Does not respond to encouragement to breathe deeply. Upon stimulation, awakens and says Please make it go away. Additional narcotics not administered in order to prevent hypoxia.
--- NOTE | 2021-08-28 11:54 | SUR.PHASEI ---
1140 hrs: Pt transport in stable condition to room 211 with RN and [employer]. Report to JOHANNA Daniel.
[2021-08-28] MEDS: KETOROLAC 30 MG/ML VIAL IV (14:06)
--- NOTE | 2021-08-28 14:28 | P.PN_ITS ---
Subjective Subjective Date Patient Seen: 08/28/21 Interval history: THIS IS A 65-YEAR-OLD FEMALE IN THE HOSPITAL WITH INCARCERATED HERNIA CAUSING SMALL-BOWEL OBSTRUCTION. SHE IS STATUS POST DAY 0 OF EXPLORATORY LAP TODAY SHE IS LETHARGIC POSTOPERATIVELY UNABLE TO OBTAIN A RELIABLE REVIEW OF SYSTEMS Exam Vital Signs (past 8 hours): - 08/28/21 08:01 08/28/21 08:07 08/28/21 08:19 Temperature 100.5 F H 97.5 F L Pulse Rate 71 69 Respiratory Rate 20 18 Blood Pressure 122/76 124/63 Pulse Oximetry 94 94 94 08/28/21 10:15 08/28/21 10:20 08/28/21 10:25 Temperature 98.1 F Pulse Rate 94 H 93 H 92 H Respiratory Rate 20 21 23 Blood Pressure 154/86 H 144/85 H 144/87 H Pulse Oximetry 93 92 90 L 08/28/21 10:30 08/28/21 10:35 08/28/21 10:40 Temperature 98.4 F Pulse Rate 92 H 91 H 91 H Respiratory Rate 16 19 21 Blood Pressure 157/86 H 151/81 H 152/85 H Pulse Oximetry 91 91 90 L 08/28/21 10:45 08/28/21 10:50 08/28/21 10:55 Temperature 98.2 F Pulse Rate 90 89 88 Respiratory Rate 16 21 21 Blood Pressure 158/88 H 147/77 H 146/85 H Pulse Oximetry 90 L 91 91 08/28/21 11:00 08/28/21 11:05 08/28/21 11:10 Temperature 98.4 F Pulse Rate 89 89 89 Respiratory Rate 22 20 16 Blood Pressure 148/87 H 152/84 H 152/91 H Pulse Oximetry 90 L 93 90 L 08/28/21 11:16 08/28/21 11:20 08/28/21 11:25 Temperature 98.5 F Pulse Rate 86 89 85 Respiratory Rate 20 84 H 20 Blood Pressure 157/85 H 151/80 H 147/86 H Pulse Oximetry 91 18 L 92 08/28/21 11:45 08/28/21 11:54 08/28/21 11:56 Temperature 97.9 F 98.5 F Pulse Rate 89 87 Respiratory Rate 16 20 Blood Pressure 150/83 H 150/83 H Pulse Oximetry 95 92 95 08/28/21 12:00 08/28/21 12:45 08/28/21 12:53 Temperature 97.9 F Pulse Rate 82 74 Respiratory Rate 16 15 Blood Pressure 137/73 143/76 H Pulse Oximetry 95 95 95 08/28/21 13:45 Temperature Pulse Rate 79 Respiratory Rate 17 Blood Pressure 142/76 H Pulse Oximetry 95 Oxygen Delivery Method Nasal Cannula Oxygen Flow Rate 0 Narrative Exam Narrative: NO ACUTE DISTRESS. SLIGHTLY SOMNOLENT AND LETHARGIC POSTOPERATIVELY NG TUBE IN PLACE. HEAD ATRAUMATIC NORMOCEPHALIC NECK : SUPPLE WITHOUT ADENOPATHY NO CAROTID BRUITS EYE: EOMI, PERRLA, NORMAL CONJUNCTIVA; NO JAUNDICE CHEST: REGULAR RATE. NO RUBS. PMI IS NON DISPLACED. NO MURMURS; NORMAL S1- S2 PULMONARY: DECREASED BS OVER THE BASES. MILD BIBASILAR CRACKLES NOTED; NO INCREASED DULLNESS TO PERCUSSION ABDOMEN: SOFT. . NONDISTENDED. VERY HYPOACTIVE BOWEL SOUNDS ARE PRESENT IN ALL 4 QUADRANTS. CLOSED SURGICAL INCISION WITH DRESSING IN PLACE EXTREMITIES: NO EDEMA.. NO CYANOSIS CLUBBING NOTED. NEURO: CRANIAL NERVES 2-12 GROSSLY INTACT. NO FOCAL NEUROLOGICAL DEFICIT NOTED. MSK: NORMAL RANGE OF MOTION FOR AGE. NO JOINT EFFUSION. SKIN: NORMAL FOR ETHNICITY; NO ECCHYMOSIS. NO LESION. GOOD TURGOR.; NO RASHES : NORMAL EXTERNAL GENITALIA. PSYCH : CALM. COOPERATIVE Objective Labs Result Diagrams: 08/28/21 06:10 08/28/21 06:10 Labs: Laboratory Results - last 24 hr 08/27/21 08/27/21 08/27/21 14:40 14:40 14:40 WBC RBC Hgb Hct MCV MCH MCHC RDW Plt Count Neut % (Auto) Lymph % (Auto) [place] % (Auto) Eos % (Auto) Baso % (Auto) Neut # (Auto) Lymph # (Auto) [place] # (Auto) Eos # (Auto) Baso # (Auto) PT INR APTT VBG pH VBG pCO2 VBG pO2 VBG HCO3 VBG Total CO2 VBG O2 Saturation VBG Base Excess Sodium Potassium Chloride Carbon Dioxide BUN Creatinine Estimated GFR BUN/Creatinine Ratio Glucose Hemoglobin A1c 5.4 Lactate 1.4 Calcium Magnesium Total Bilirubin AST ALT Alkaline Phosphatase Total Protein Albumin Globulin Albumin/Globulin Ratio Lipase Procalcitonin 0.10 Urine Color Urine Appearance Urine pH Ur Specific [place] Urine Protein Urine Glucose (UA) Urine Ketones Urine Occult Blood Urine Nitrate Urine Bilirubin Ur Bilirubin Confirm Urine Urobilinogen Ur Leukocyte Esterase Urine RBC Urine WBC Ur Squamous Epith Cells Ur Transition Epith Cell Urine Bacteria Hyaline Casts Granular Casts Urine Mucus Ur Culture Indicated? Chlamy pneumoniae PCR Adenovirus (PCR) B. pertussis DNA (PCR) B.parapertussis DNA PCR Coronavirus OC43 (PCR) Coronavirus HKU1 (PCR) Coronavirus 229E (PCR) SARS-CoV-2 (PCR) Coronavirus NL63 (PCR) Human Metapneumovir PCR Influenza Type A (PCR) Influenza Type B (PCR) M. pneumoniae (PCR) Parainfluenza 1 (PCR) Parainfluenza 2 (PCR) Parainfluenza 3 (PCR) Parainfluenza 4 (PCR) RSV (PCR) Entero/Rhino (PCR) 08/27/21 08/27/21 08/27/21 14:40 14:45 14:45 WBC 20.6 H RBC 5.23 H Hgb 14.5 Hct 43.1 MCV 82.3 MCH 27.8 MCHC 33.8 RDW 14.0 Plt Count 306 Neut % (Auto) 85.1 H Lymph % (Auto) 9.6 L [place] % (Auto) 4.3 Eos % (Auto) 0.1 L Baso % (Auto) 0.9 Neut # (Auto) 33826 H Lymph # (Auto) 2000 [place] # (Auto) 900 Eos # (Auto) 0 Baso # (Auto) 200 H PT INR APTT VBG pH VBG pCO2 VBG pO2 VBG HCO3 VBG Total CO2 VBG O2 Saturation VBG Base Excess Sodium 136 L Potassium 4.0 Chloride 99 Carbon Dioxide 29 BUN 24 H Creatinine 0.70 Estimated GFR > 60.0 BUN/Creatinine Ratio 34.3 H Glucose 138 H Hemoglobin A1c Lactate Calcium 9.8 Magnesium 2.0 Total Bilirubin 1.0 AST 25 ALT 18 Alkaline Phosphatase 112 Total Protein 7.9 Albumin 4.2 Globulin 3.7 Albumin/Globulin Ratio 1.1 Lipase 14 L Procalcitonin Urine Color Urine Appearance Urine pH Ur Specific [place] Urine Protein Urine Glucose (UA) Urine Ketones Urine Occult Blood Urine Nitrate Urine Bilirubin Ur Bilirubin Confirm Urine Urobilinogen Ur Leukocyte Esterase Urine RBC Urine WBC Ur Squamous Epith Cells Ur Transition Epith Cell Urine Bacteria Hyaline Casts Granular Casts Urine Mucus Ur Culture Indicated? Chlamy pneumoniae PCR Adenovirus (PCR) B. pertussis DNA (PCR) B.parapertussis DNA PCR Coronavirus OC43 (PCR) Coronavirus HKU1 (PCR) Coronavirus 229E (PCR) SARS-CoV-2 (PCR) Coronavirus NL63 (PCR) Human Metapneumovir PCR Influenza Type A (PCR) Influenza Type B (PCR) M. pneumoniae (PCR) Parainfluenza 1 (PCR) Parainfluenza 2 (PCR) Parainfluenza 3 (PCR) Parainfluenza 4 (PCR) RSV (PCR) Entero/Rhino (PCR) 08/27/21 08/27/21 08/27/21 14:45 15:50 15:50 WBC RBC Hgb Hct MCV MCH MCHC RDW Plt Count Neut % (Auto) Lymph % (Auto) [place] % (Auto) Eos % (Auto) Baso % (Auto) Neut # (Auto) Lymph # (Auto) [place] # (Auto) Eos # (Auto) Baso # (Auto) PT 15.5 H INR 1.4 H APTT 31 VBG pH VBG pCO2 VBG pO2 VBG HCO3 VBG Total CO2 VBG O2 Saturation VBG Base Excess Sodium Potassium Chloride Carbon Dioxide BUN Creatinine Estimated GFR BUN/Creatinine Ratio Glucose Hemoglobin A1c Lactate 1.2 Calcium Magnesium Total Bilirubin AST ALT Alkaline Phosphatase Total Protein Albumin Globulin Albumin/Globulin Ratio Lipase Procalcitonin Urine Color Urine Appearance Urine pH Ur Specific [place] Urine Protein Urine Glucose (UA) Urine Ketones Urine Occult Blood Urine Nitrate Urine Bilirubin Ur Bilirubin Confirm Urine Urobilinogen Ur Leukocyte Esterase Urine RBC Urine WBC Ur Squamous Epith Cells Ur Transition Epith Cell Urine Bacteria Hyaline Casts Granular Casts Urine Mucus Ur Culture Indicated? Chlamy pneumoniae PCR Not detected Adenovirus (PCR) Not detected B. pertussis DNA (PCR) Not detected B.parapertussis DNA PCR Not detected Coronavirus OC43 (PCR) Not detected Coronavirus HKU1 (PCR) Not detected Coronavirus 229E (PCR) Not detected SARS-CoV-2 (PCR) Not detected Coronavirus NL63 (PCR) Not detected Human Metapneumovir PCR Not detected Influenza Type A (PCR) Not detected Influenza Type B (PCR) Not detected M. pneumoniae (PCR) Not detected Parainfluenza 1 (PCR) Not detected Parainfluenza 2 (PCR) Not detected Parainfluenza 3 (PCR) Not detected Parainfluenza 4 (PCR) Not detected RSV (PCR) Not detected Entero/Rhino (PCR) Not detected 08/27/21 08/27/21 08/28/21 16:05 16:45 06:10 WBC 8.8 D RBC 4.35 Hgb 12.4 Hct 36.3 MCV 83.6 MCH 28.4 MCHC 34.0 RDW 14.2 Plt Count 234 Neut % (Auto) 77.5 H Lymph % (Auto) 14.7 L [place] % (Auto) 5.8 Eos % (Auto) 1.5 L Baso % (Auto) 0.5 Neut # (Auto) 6800 Lymph # (Auto) 1300 [place] # (Auto) 500 Eos # (Auto) 100 Baso # (Auto) 0 PT INR APTT VBG pH 7.50 H VBG pCO2 34.9 L VBG pO2 63 H VBG HCO3 27 VBG Total CO2 28 VBG O2 Saturation 94 H VBG Base Excess 4.0 Sodium Potassium Chloride Carbon Dioxide BUN Creatinine Estimated GFR BUN/Creatinine Ratio Glucose Hemoglobin A1c Lactate Calcium Magnesium Total Bilirubin AST ALT Alkaline Phosphatase Total Protein Albumin Globulin Albumin/Globulin Ratio Lipase Procalcitonin Urine Color Yellow Urine Appearance Sl cloudy Urine pH 5.5 Ur Specific [place] 1.025 Urine Protein Trace H Urine Glucose (UA) Negative Urine Ketones 1+ H Urine Occult Blood Negative Urine Nitrate Negative Urine Bilirubin 1+ H Ur Bilirubin Confirm Negative Urine Urobilinogen 0.2 Ur Leukocyte Esterase Trace H Urine RBC None seen Urine WBC 1-5/hpf Ur Squamous Epith Cells 5-10 /hpf H Ur Transition Epith Cell 1-5/hpf Urine Bacteria Moderate (10-30) H Hyaline Casts 1-5/lpf Granular Casts 1-5/lpf Urine Mucus 2+ H Ur Culture Indicated? Cult not indicated Chlamy pneumoniae PCR Adenovirus (PCR) B. pertussis DNA (PCR) B.parapertussis DNA PCR Coronavirus OC43 (PCR) Coronavirus HKU1 (PCR) Coronavirus 229E (PCR) SARS-CoV-2 (PCR) Coronavirus NL63 (PCR) Human Metapneumovir PCR Influenza Type A (PCR) Influenza Type B (PCR) M. pneumoniae (PCR) Parainfluenza 1 (PCR) Parainfluenza 2 (PCR) Parainfluenza 3 (PCR) Parainfluenza 4 (PCR) RSV (PCR) Entero/Rhino (PCR) 08/28/21 08/28/21 06:10 06:10 WBC RBC Hgb Hct MCV MCH MCHC RDW Plt Count Neut % (Auto) Lymph % (Auto) [place] % (Auto) Eos % (Auto) Baso % (Auto) Neut # (Auto) Lymph # (Auto) [place] # (Auto) Eos # (Auto) Baso # (Auto) PT 15.0 H INR 1.3 APTT VBG pH VBG pCO2 VBG pO2 VBG HCO3 VBG Total CO2 VBG O2 Saturation VBG Base Excess Sodium 138 Potassium 3.8 Chloride 107 Carbon Dioxide 29 BUN 21 H Creatinine 0.63 Estimated GFR > 60.0 BUN/Creatinine Ratio 33.3 H Glucose 94 Hemoglobin A1c Lactate Calcium 8.8 Magnesium Total Bilirubin AST ALT Alkaline Phosphatase Total Protein Albumin Globulin Albumin/Globulin Ratio Lipase Procalcitonin Urine Color Urine Appearance Urine pH Ur Specific [place] Urine Protein Urine Glucose (UA) Urine Ketones Urine Occult Blood Urine Nitrate Urine Bilirubin Ur Bilirubin Confirm Urine Urobilinogen Ur Leukocyte Esterase Urine RBC Urine WBC Ur Squamous Epith Cells Ur Transition Epith Cell Urine Bacteria Hyaline Casts Granular Casts Urine Mucus Ur Culture Indicated? Chlamy pneumoniae PCR Adenovirus (PCR) B. pertussis DNA (PCR) B.parapertussis DNA PCR Coronavirus OC43 (PCR) Coronavirus HKU1 (PCR) Coronavirus 229E (PCR) SARS-CoV-2 (PCR) Coronavirus NL63 (PCR) Human Metapneumovir PCR Influenza Type A (PCR) Influenza Type B (PCR) M. pneumoniae (PCR) Parainfluenza 1 (PCR) Parainfluenza 2 (PCR) Parainfluenza 3 (PCR) Parainfluenza 4 (PCR) RSV (PCR) Entero/Rhino (PCR) [facility] Medical History (Updated 08/27/21 @ 23:28 by PRABHJOT Azar) Chicken pox Depression Essential hypertension History of urinary incontinence (~1992) Measles Mumps Osteoarthritis Scarlet fever Surgical History H/O oophorectomy (~1988) History of bladder suspension procedure (~1998) History of carpal tunnel release (~1997) History of cataract removal with insertion of prosthetic lens History of Neil-en-Y gastric bypass (~08/2017) History of total abdominal hysterectomy Hx of cholecystectomy Family History Father Cancer Mother History of heart disease Sister Suicide Sister Kidney disease Grandfather History of emphysema Social History household members: spouse Smoking Status: Former smoker alcohol intake: current Assessment & Plan Assessment & Plan narrative: PROBLEM LIST SMALL-BOWEL OBSTRUCTION SECONDARY TO INCARCERATED HERNIA. STATUS POST EXPLORATORY LAP DAY 0 INCARCERATED HERNIA. S/P EXP LAD DAY 0 ESSENTIAL HYPERTENSION HIATAL HERNIA PER HISTORY OBESITY. BMI OF 34 RECURRENT MAJOR DEPRESSIVE DISORDER PER HISTORY GERD PER HISTORY PLAN KEEP PATIENT NPO CONTINUE NGT WITH SUCTION FOR NOW DAILY LAB TO FOLLOW IV FLUID ORDERED WITH KCL HOLD ABX FPR NOW WELL PPI IV ADD PEPCID IF INDICATED MONITOR CLOSELY FOR ANY SIGN OF ACUTE COMPLICATION POSTOPERATIVELY 5W'S MOBILIZE PATIENT TOLERATED SOON CLEARED BY THE SURGICAL TEAM TO DO SO PATIENT TO BE OUT OF BED AND IN CHAIR 2-3 TIMES DAILY NURSING TO ENCOURAGE PATIENT TO USE THE INCENTIVE SPIROMETER DEVICE ORDERED MAINTAIN FALL AND ASPIRATION PRECAUTION AT ALL TIMES ADDITIONAL MANAGEMENT PER CLINICAL COURSE Time Spent With Patient Critical Care time: I spent a total of [] minutes of critical care time on this patient's care today; this time is exclusive of procedural time. Quality VTE Deep Vein Thrombosis/Pulmonary Embolism Present on Admission: No
[2021-08-28] MEDS: HYDROMORPHONE 0.5 MG INJ IV ×2 (14:39→20:38)
--- NOTE | 2021-08-28 15:00 | CM.DANOTE ---
DCP Brief Assessment: patient was admitted for SBO and had a Exploratory laparotomy that was preformed by Dr. Koch. CM attempted to meet with the patient at the bedside after her surgery but patient was very groggy and not able to participate in assessment. CM attempted to call patients with no answer so CM LVM. CM department will follow up with patient tomorrow to come up with appropriate DC plan. I: Medicare and [employer] Plan: DC home no needs is currently planned but will be determined once CM department is able to meet with the patient. Suzanne alejandre Discharge Planning/Care Management CM Discharge Assessment Start: 08/28/21 14:59 Freq: Status: Active Protocol: Document 08/28/21 14:59 HS (Rec: 08/28/21 15:00 HS [id number]) Discharge Planning Assessment Assigned Account Services Manager Suzanne Alejandre DPOA/Assigned Designee Name Marvin Ceja () Contact Information [phone] Advance Directives? No History Provided By Medical Record Has Patient been admitted in last 30 No days? Prior Living Arrangements House Household Members spouse Independent with ADL's Yes Caregiver for Another No Discharge Plan Home Review Status In Process Next Review Type Continued Stay Review
[2021-08-28] MEDS: KCL 20 MEQ IN NS 1,000 ML 100 MEQ IV (15:43)
[2021-08-28] MEDS: PANTOPRAZOLE 40 MG VIAL IV (20:37)
[2021-08-28] MEDS: SODIUM CHLORIDE 0.9% FLUSH 10 ML IV (20:41)
[2021-08-29] VITALS (13 sets, daily range): BP systolic 113–128; BP diastolic 55–79; PULSE 65–88; RESP 18; TEMP 36.4–37.4; O2SAT 90–97
[2021-08-29] MEDS: KCL 20 MEQ IN NS 1,000 ML 100 MEQ IV ×3 (02:03→20:27)
[2021-08-29] MEDS: HYDROMORPHONE 0.5 MG INJ IV ×7 (02:49→20:32)
[2021-08-29 06:41] LABS: Add Manual Diff / Slide Review NO; Basophils Absolute Auto 0 /uL (0-100); Basophils Percent Auto 0.4 % (0-2); Eosinophils Absolute Auto 100 /uL (0-450); Hemoglobin 11.7 g/dL (12.0-16.0); Lymphocytes Absolute Auto 1700 /uL (1100-4500); Lymphocytes Percent Auto 20.2 % (25-40); Mean Corpuscular HGB Conc 33.3 % (30-36); Mean Corpuscular Volume 83.9 fL (80-100); Monocytes Absolute Auto 600 /uL (0-900); Monocytes Percent Auto 7.4 % (3-14); Neutrophils Absolute Auto 6000 /uL (1500-7000); Platelet Count 208 X10^3/uL (150-400); Red Blood Cell Count 4.17 X10^6/uL (4.0-5.2); Red Cell Distribution Width 13.9 % (11.6-14.8); White Blood Cell Count 8.4 X10^3/uL (4.5-11.0)
[2021-08-29 06:46] LABS: INR 1.3 (0.9-1.3); Prothrombin Time 14.6 SECONDS (10.1-12.7)
[2021-08-29 06:50] LABS: BUN Creatinine Ratio 33.3 (6-22); Blood Urea Nitrogen 17 mg/dL (7-17); Calcium 8.7 mg/dL (8.4-10.2); Carbon Dioxide 28 mmol/L (22-32); Chloride 112 mmol/L (98-107); Estimated Glomerular Filt Rate > 60.0 mL/min (>60); Glucose 84 mg/dL (80-110); HEMOLYSIS < 15 (0-50); Potassium 4.4 mmol/L (3.4-5.1); Sodium 140 mmol/L (137-145)
--- NOTE | 2021-08-29 07:24 | PC.NURSE ---
Patient alert oriented, up with SBA, walked in room gait steady up in chair. BT hypoactive, patient denies flatus and nausea. O2 on 2l 95% decreased to 1L.
[2021-08-29] MEDS: PANTOPRAZOLE 40 MG VIAL IV ×2 (07:43→20:31)
[2021-08-29] MEDS: SODIUM CHLORIDE 0.9% FLUSH 10 ML IV ×2 (07:44→07:46)
--- NOTE | 2021-08-29 08:55 | DI.RAD.S_ITS ---
PROCEDURE: XR ABDOMEN 1V INDICATIONS: f/u SBO TECHNIQUE: One view of the abdomen acquired. COMPARISON: None. FINDINGS: Surgical changes and devices: Surgical clips are seen in gallbladder fossa. Bowel: Bowel gas pattern is nonobstructive. No gross peritoneal free air. Mild fecal stasis throughout the colon is seen. Soft tissues: 7 mm oval calcification is seen in right renal fossa. Possible tiny 3 mm calcification in left renal fossa is also seen. Visualized solid organ contours appear normal in size. Bones: No suspicious bony lesions. IMPRESSION: No evidence of bowel obstruction is seen on the current study. No gross free air. Mild constipation. Suggestion of bilateral renal calculi as above. Dictated by: Frank Ramirez M.D. on 08/29/2021 at 9:13 Approved by: Frank Ramirez M.D. on 08/29/2021 at 9:14
--- NOTE | 2021-08-29 09:04 | PM.PNPO.1 ---
Subjective Subjective Date Patient Seen: 08/29/21 Time Patient Seen: 09:04 Interval history: Feeling better then yesterday less distended. No flatus or BM Exam Vital Signs (past 8 hours): - 08/29/21 04:00 08/29/21 05:30 08/29/21 07:19 Temperature 97.9 F Pulse Rate 67 Respiratory Rate 18 Blood Pressure 127/79 Pulse Oximetry 96 97 95 08/29/21 07:20 Temperature 99.0 F Pulse Rate 66 Respiratory Rate 18 Blood Pressure 127/79 Pulse Oximetry 90 L Oxygen Delivery Method Nasal Cannula Oxygen Flow Rate 2 Narrative Exam Narrative: Gen-Adult woman alert and oriented Abdomen-Soft appropriately tender to palpation Objective Labs Result Diagrams: 08/29/21 06:15 08/29/21 06:15 Labs: Laboratory Results - last 24 hr 08/29/21 08/29/21 08/29/21 06:15 06:15 06:15 WBC 8.4 RBC 4.17 Hgb 11.7 L Hct 35.0 L MCV 83.9 MCH 28.0 MCHC 33.3 RDW 13.9 Plt Count 208 Neut % (Auto) 71.0 Lymph % (Auto) 20.2 L [place] % (Auto) 7.4 Eos % (Auto) 1.0 L Baso % (Auto) 0.4 Neut # (Auto) 6000 Lymph # (Auto) 1700 [place] # (Auto) 600 Eos # (Auto) 100 Baso # (Auto) 0 PT 14.6 H INR 1.3 Sodium 140 Potassium 4.4 Chloride 112 H Carbon Dioxide 28 BUN 17 Creatinine 0.51 L Estimated GFR > 60.0 BUN/Creatinine Ratio 33.3 H Glucose 84 Calcium 8.7 PFSH Medical History (Updated 08/27/21 @ 23:28 by RAOUL Azar-ALAN) Chicken pox Depression Essential hypertension History of urinary incontinence (~1992) Measles Mumps Osteoarthritis Scarlet fever Surgical History H/O oophorectomy (~1988) History of bladder suspension procedure (~1998) History of carpal tunnel release (~1997) History of cataract removal with insertion of prosthetic lens History of Neil-en-Y gastric bypass (~08/2017) History of total abdominal hysterectomy Hx of cholecystectomy Family History Father Cancer Mother History of heart disease Sister Suicide Sister Kidney disease Grandfather History of emphysema Social History household members: spouse Smoking Status: Former smoker alcohol intake: current Assessment & Plan Post-op Postoperative Procedures: Procedures Operation Date: 08/28/21 08:15 Actual Procedure Side Surgeon p Exploratory Laparotomy GEN with lysis of adhesions Jacek Koch MD Postoperative status narrative: 65F POD 1 sp exlap lysis of adhesions for incarcerated ventral hernia with secondary small bowel obstruction. Recovering appropriately -Abdominal XR now if OK then will start clear liquids -SCDs and pLovenox Quality VTE Deep Vein Thrombosis/Pulmonary Embolism Present on Admission: No
--- NOTE | 2021-08-29 13:19 | P.PN_ITS ---
Subjective Subjective Date Patient Seen: 08/29/21 Interval history: THIS IS A 65-YEAR-OLD FEMALE IN THE HOSPITAL WITH INCARCERATED HERNIA CAUSING? SMALL-BOWEL OBSTRUCTION. ? SHE IS STATUS POST DAY 1 EXPLORATORY LAP ? TODAY PER NURSING, NGT REMOVED OVERNIGHT NO NAUSEA OR VOMITING REPORTED PATIENT HAVE NOT ANY BOWEL MOVEMENT NO FLATUS NO OTHER COMPLAINTS OR SIGNIFICANT ISSUES OVERNIGHT Exam Vital Signs (past 8 hours): - 08/29/21 05:30 08/29/21 07:19 08/29/21 07:20 Temperature 97.9 F 99.0 F Pulse Rate 67 66 Respiratory Rate 18 18 Blood Pressure 127/79 127/79 Pulse Oximetry 97 95 90 L 08/29/21 09:26 08/29/21 11:39 08/29/21 12:22 Temperature 99.3 F Pulse Rate 65 Respiratory Rate 18 Blood Pressure 113/55 L Pulse Oximetry 93 96 95 Oxygen Delivery Method Room Air Oxygen Flow Rate 2 Narrative Exam Narrative: NO ACUTE DISTRESS.? [id number]; OBESE HEAD ATRAUMATIC NORMOCEPHALIC NECK : SUPPLE WITHOUT ADENOPATHY NO CAROTID BRUITS EYE:? EOMI, PERRLA, NORMAL CONJUNCTIVA; NO JAUNDICE CHEST:? REGULAR RATE.? ? NO RUBS.? PMI IS NON DISPLACED.? NO MURMURS; NORMAL S1- S2 PULMONARY:? DECREASED BS OVER THE BASES.? MILD BIBASILAR CRACKLES NOTED; NO INCREASED DULLNESS TO PERCUSSION ABDOMEN:? SOFT. ?NON TENDER; NONDISTENDED.? HYPOACTIVE BOWEL SOUNDS ARE PRESENT IN ALL 4 QUADRANTS. ? CLOSED SURGICAL INCISION WITH DRESSING IN PLACE EXTREMITIES: NO EDEMA..? NO CYANOSIS CLUBBING NOTED. NEURO:? CRANIAL NERVES 2-12 GROSSLY INTACT. NO FOCAL NEUROLOGICAL DEFICIT NOTED. MSK:? NORMAL RANGE OF MOTION FOR AGE.? NO JOINT EFFUSION. SKIN:? NORMAL FOR ETHNICITY; NO ECCHYMOSIS.? NO LESION. ? GOOD? TURGOR. NO RASH ES :? NORMAL EXTERNAL GENITALIA. PSYCH : ? CALM.? COOPERATIVE Objective Labs Result Diagrams: 08/29/21 06:15 08/29/21 06:15 Labs: Laboratory Results - last 24 hr 08/29/21 08/29/21 08/29/21 06:15 06:15 06:15 WBC 8.4 RBC 4.17 Hgb 11.7 L Hct 35.0 L MCV 83.9 MCH 28.0 MCHC 33.3 RDW 13.9 Plt Count 208 Neut % (Auto) 71.0 Lymph % (Auto) 20.2 L [place] % (Auto) 7.4 Eos % (Auto) 1.0 L Baso % (Auto) 0.4 Neut # (Auto) 6000 Lymph # (Auto) 1700 [place] # (Auto) 600 Eos # (Auto) 100 Baso # (Auto) 0 PT 14.6 H INR 1.3 Sodium 140 Potassium 4.4 Chloride 112 H Carbon Dioxide 28 BUN 17 Creatinine 0.51 L Estimated GFR > 60.0 BUN/Creatinine Ratio 33.3 H Glucose 84 Calcium 8.7 PFSH Medical History (Updated 08/27/21 @ 23:28 by RAOUL Azar-) Chicken pox Depression Essential hypertension History of urinary incontinence (~1992) Measles Mumps Osteoarthritis Scarlet fever Surgical History H/O oophorectomy (~1988) History of bladder suspension procedure (~1998) History of carpal tunnel release (~1997) History of cataract removal with insertion of prosthetic lens History of Neil-en-Y gastric bypass (~08/2017) History of total abdominal hysterectomy Hx of cholecystectomy Family History Father Cancer Mother History of heart disease Sister Suicide Sister Kidney disease Grandfather History of emphysema Social History household members: spouse Smoking Status: Former smoker alcohol intake: current Assessment & Plan Assessment & Plan narrative: ROBLEM LIST ?SMALL-BOWEL OBSTRUCTION SECONDARY TO INCARCERATED HERNIA.? STATUS POST EXPLORATORY LAP? DAY 1 ?INCARCERATED HERNIA.? S/P EXP LAD DAY 1 ?ESSENTIAL HYPERTENSION; STABLE BP POSS ANEMIA OF ACUTE BLOOD LOSS; MILD; STABLE HGB ?HIATAL HERNIA PER HISTORY ?OBESITY.? BMI OF 34 ?RECURRENT MAJOR DEPRESSIVE DISORDER PER HISTORY ?GERD PER HISTORY ?PLAN 08/29 PATIENT NG-TUBE WAS REMOVED OVERNIGHT SHE DENIES ANY NAUSEA AND VOMITING DURING MY EXAMINATION CLINICALLY SHE APPEARS TO BE IMPROVED STARTED ON CLEAR LIQUID DIET PER SURGERY WILL DEFER TO THE SURGERY TEAM TO ADVANCE DIET TOLERATED CONTINUE TO TREND LAB CLOSELY MONITOR INPUT AND OUTPUT CLOSELY PATIENT TO AMBULATE TWICE A DAY PATIENT TO BE OUT OF BED AND IN CHAIR WITH EACH MEAL ADDITIONAL MANAGEMENT PER CLINICAL COURSE DISCHARGE ONCE CLEARED BY SURGERY TEAM TO HOME WITH OR WITHOUT HH 08/28 ?KEEP PATIENT NPO ?CONTINUE? NGT WITH SUCTION FOR NOW ?DAILY LAB TO FOLLOW ?IV FLUID ORDERED? WITH KCL HOLD ABX FPR NOW WELL PPI IV ADD PEPCID IF INDICATED ?MONITOR CLOSELY FOR ANY SIGN OF ACUTE COMPLICATION POSTOPERATIVELY 5W'S MOBILIZE PATIENT TOLERATED SOON CLEARED ? BY THE SURGICAL TEAM TO DO SO PATIENT TO BE OUT OF BED AND IN CHAIR 2-3 TIMES DAILY ?NURSING TO ENCOURAGE PATIENT TO USE? THE INCENTIVE SPIROMETER DEVICE ORDERED ?MAINTAIN FALL AND ASPIRATION PRECAUTION AT ALL TIMES ?ADDITIONAL MANAGEMENT PER CLINICAL COURSE Time Spent With Patient Critical Care time: I spent a total of [] minutes of critical care time on this patient's care today; this time is exclusive of procedural time. Quality VTE Deep Vein Thrombosis/Pulmonary Embolism Present on Admission: No
--- NOTE | 2021-08-29 14:44 | DIET.PN1 ---
Dietary Progress Note RD Note: Pt tolerating clear liquids today with no wretching/vomiting. Pt has very small stomach pouch and easily/frequently loses contents of her stomach if she is laying flat or bending over. Pt would like medical team to know this loss of stomach contents is normal for her and very different from the wretching vomiting she had earlier in the week. Ht: 154.94 cm Wt: 82.6 kg BMI: 33.7 UBW: Last BM: 08/22/21 (08/28/21 08:07) MNA: 14 Khoi Score: 19 Diet: 08/29/21 Lunch Clear Liquid Diet Diet Modifications: Nutrition Percent Meal Consumed 100% 08/29/21 13:23 Percent Meal Consumed 0% 08/29/21 09:32 Labs: RBC 4.17 X10^6/uL (4.0-5.2) 08/29/21 06:15 Hgb 11.7 g/dL (12.0-16.0) L 08/29/21 06:15 Hct 35.0 % (36-46) L 08/29/21 06:15 Creatinine 0.51 mg/dL (0.52-1.04) L 08/29/21 06:15 Hemoglobin A1c 5.4 % (4.0-6.0) 08/27/21 14:40 Lactate 1.2 mmol/L (0.7-2.1) 08/27/21 15:50 Electronically Signed by: Eunice Ahmadi 08/29/21 14:44 Clinical Dietitian [address] [address]
--- NOTE | 2021-08-29 15:58 | CM.DPC ---
DCP Cont: Checked in with patient. Introduced self and role. Confirmed that patient resides on [facility] with her spouse, Marvin. She is independent at her baseline. She is alert and oriented, pleasant. She is currently on clear liquids. She is anxious about the ferry schedule when going home. Let her know that priority boarding pass can be obtained. She is wondering if she can go home tomorrow. Let her know that this will depend upon surgeon evaluation. P: DCP to continue to follow, and will check in. Patient should be able to go home when she is deemed medically stable. Lalitha Mcguire RN/Assistant Professor Surgical Technology
[2021-08-29] MEDS: ONDANSETRON 4 MG/2 ML INJ IV (20:33)
[2021-08-29] MEDS: diphenhydrAMINE 50 MG/ML VIAL 25 MG IV (20:40)
[2021-08-30] VITALS (14 sets, daily range): BP systolic 101–128; BP diastolic 54–64; PULSE 67–90; RESP 16–20; TEMP 36.4–37.2; O2SAT 91–95
[2021-08-30] MEDS: HYDROMORPHONE 0.5 MG INJ IV ×4 (00:06→09:07)
[2021-08-30 06:01] LABS: Add Manual Diff / Slide Review NO; Basophils Absolute Auto 100 /uL (0-100); Eosinophils Absolute Auto 300 /uL (0-450); Eosinophils Percent Auto 3.9 % (2-4); Hematocrit 34.4 % (36-46); Hemoglobin 11.4 g/dL (12.0-16.0); Lymphocytes Absolute Auto 2100 /uL (1100-4500); Lymphocytes Percent Auto 27.7 % (25-40); Mean Corpuscular HGB Conc 33.2 % (30-36); Mean Corpuscular Hemoglobin 27.9 PG (26-34); Monocytes Absolute Auto 500 /uL (0-900); Neutrophils Absolute Auto 4700 /uL (1500-7000); Neutrophils Percent Auto 61.4 % (50-75); Platelet Count 211 X10^3/uL (150-400); Red Cell Distribution Width 14.1 % (11.6-14.8); White Blood Cell Count 7.6 X10^3/uL (4.5-11.0)
[2021-08-30 06:04] LABS: INR 1.2 (0.9-1.3)
[2021-08-30 06:13] LABS: BUN Creatinine Ratio 22.4 (6-22); Blood Urea Nitrogen 11 mg/dL (7-17); Calcium 8.3 mg/dL (8.4-10.2); Carbon Dioxide 28 mmol/L (22-32); Chloride 109 mmol/L (98-107); Estimated Glomerular Filt Rate > 60.0 mL/min (>60); Glucose 89 mg/dL (80-110); HEMOLYSIS 15 (0-50); Potassium 4.2 mmol/L (3.4-5.1); Sodium 138 mmol/L (137-145)
[2021-08-30] MEDS: KCL 20 MEQ IN NS 1,000 ML 100 MEQ IV ×2 (06:35→17:13)
--- NOTE | 2021-08-30 08:45 | PT.IIE ---
Current Diagnoses Unspecified intestinal obstruction, unspecified as to partial versus complete obstruction (08/27/21) Surgery Performed Operation Date: 08/28/21 08:15 Actual Procedures p Exploratory Laparotomy GEN with lysis of adhesions - Jacek Koch MD Medical History (Last Updated 08/27/21 @ 23:28 by Jolene Escobedo [facility]) Chicken pox Depression Essential hypertension History of urinary incontinence (~1992) Measles Mumps Osteoarthritis Scarlet fever Physical Therapy Inpatient Evaluation/Re-Eval M1 PT/OT-IP Prior Functional Status Start: 08/30/21 09:21 Freq: NEEDED Status: Active Protocol: Document 08/30/21 08:45 AB (Rec: 08/30/21 09:33 AB [id number]) Medical Review Prior Functional Status Medical History Reviewed Yes Communication able to make needs known Mobility and Gait pt stated that she is independent with all mobilities and ambulation without AD Social History Household Members spouse Living Arrangements House Number of Floors (Floors) Two Floors Number of Stairs To Enter/Railing? 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 [facility] M2 PT-IP Current Condition Start: 08/30/21 09:21 Freq: NEEDED Status: Active Protocol: Document 08/30/21 08:45 AB (Rec: 08/30/21 09:33 AB [email or web address]) Physical Therapy Current Condition Current Condition Evaluation Date 08/30/21 Treatment Diagnosis SBO s/p ex lap; difficulty in walking Onset Date 08/27/21 M3 PT-IP Subjective Start: 08/30/21 09:21 Freq: NEEDED Status: Active Protocol: Document 08/30/21 08:45 AB (Rec: 08/30/21 09:33 AB [id number]) Subjective Physical Therapy Visit Type Type Initial Evaluation Visit Start Time 08:45 Visit Stop Time 09:20 Total Visit Minutes 35 Number of DIGITAL CONTENT PRODUCER Visits 0 Physical Therapy Visit Comments Patient Comments agreeable to do PT Therapy Pain Assessment Pain When Pain Assessed At Rest Pain Present Pain Present Pain Reported Location Abdomen Scale Used a lot; pain scale not stated Pain Management Techniques Distraction,Modification of Treatment,Re-positioning, Timing of Activity with Medications M4 PT-IP Mobility and Gait Start: 08/30/21 09:21 Freq: NEEDED Status: Active Protocol: Document 08/30/21 08:45 AB (Rec: 08/30/21 09:33 AB [email or web address]) PT-Bed Mobility Assessment Rolling Type of Rolling Log Rolling Level of Assist Moderate Assistance Sit to Supine Sit to Supine Maximum Assistance PT-Transfer Assessment Sit to and From Stand Sit to and from Stand Standby Assistance,1 Person Assistance,Use of Upper Extremities Equipment Transfer Assistive Device Gait Belt,Front Wheeled Walker Orthotic/Prosthetic Devices or Brace: Yes Transfers Transfer Destination Bed Transfer Technique ambulated Transfer Ability Level of Assist Standby Assistance,1 Person Assistance,Use of Upper Extremities Comments Mobility Comments pt sitting on chair. pt just walked with NAC. c/o abdominal pain and initially stated that she does not want to move but agreed to move with PT. educated pt regarding abdominal precautions and log roll bed mobility. pt completed sit to stand from chair SBA and requiring increase time to complete tasks and increase UE pushing from chair to get up. pt ambulated to the EOB ~ 12 ft using FWW SBA. pt sat on EOB. instructed for log roll sit to supine and required max A and max cues. positioned pt in bed. pt requested to have abdominal binder off and nurse stated that pt can have binder off. call light and table placed within reach. Gait Assessment Gait Gait Assistance Required: Standby Assistance Distance (Feet) 12 Able to Maintain Weight Bearing Status Yes During Gait Assistive Devices Assistive Device Gait Belt,Front Wheeled Walker Orthotic/Prosthetic Devices or Brace: No Gait Deviations General Gait Pattern Decreased Stride Length, Decreased Feet Clearance Factors Limiting Gait Function Factors Limiting Gait Function Decreased Activity Tolerance, Decreased Strength,Limited Range of Motion,Pain,Poor Balance,Poor Safety Awareness PT-Balance Assessment Sitting Balance and Reactions Static Sitting Balance Ability Normal Dynamic Sitting Balance Ability Good Standing Balance and Reactions Static Standing Balance Ability Fair Dynamic Standing Balance Ability Fair Device Used FWW M5 PT-IP Objective Assessments Start: 08/30/21 09:21 Freq: NEEDED Status: Active Protocol: Document 08/30/21 08:45 AB (Rec: 08/30/21 09:33 AB [id number]) Orientation Orientation/Cognition Level of Alertness Alert Orientation Name,Place,Situation Language Function Ability No Deficits Noted Safety Awareness Decreased Safety Awareness Memory Description Short Term Impaired Gross Range of Motion Lower Extremity ROM Assessment Within Functional Limits Strength Lower Extremity Strength Assessment Within Functional Limits Sensation Assessment Sensation Gross Sensation WNL Muscle Tone Muscle Tone WNL Yes M6 PT-IP Treatment Start: 08/30/21 09:21 Freq: NEEDED Status: Active Protocol: Document 08/30/21 08:45 AB (Rec: 08/30/21 09:33 AB [email or web address]) Physical Therapy Treatment Education Education Provided Precautions,Safety M7 PT-IP Assessment and Plan Start: 08/30/21 09:21 Freq: NEEDED Status: Active Protocol: Document 08/30/21 08:45 AB (Rec: 08/30/21 09:33 AB [email or web address]) PT Summary Assessment and Plan Potential Rehabilitation Potential Good Status of Condition at Evaluation Stable Summary Impairments Pain,ROM,Strength,Balance,Bed Mobility,Transfers,Gait, Activity Tolerance Assessment Summary pt requiring max A for log roll bed mobility and SBA for transfers using FWW. pt needing use of FWW at this time for balance and safety. Pt stated that she can borrow a walker from the [place]. will continue to assess progress. pt plans to go home and spouse will be able to assist pt when needed. Goals Bed Mobility Goal Independent Transfer Goal Independent,Front Wheeled Walker Gait Goal Independent,Front Wheel Walker Gait Distance 300 Other Goals improve transfers without AD independent, ambulation without AD independent 300 ft Days to Meet Goals 5 Frequency of Treatment Frequency Of Treatment Once a Day Treatment Plan Physical Therapy Treatment Plan Bed Mobility Training,Transfer Training,Gait Training, Therapeutic Exercise,Balance Retraining,Post Op Education, Discharge Planning,Hot or Cold Pack,Neuromuscular Re-ed, Coordination Retraining,Manual Therapy Other Recommendations and Next Treatment log roll bed mobility, sit<> Focus stand, ambulation Precautions Abdominal Surgery Precautions Log Roll,Lifting Restrictions, Gait Belt above Incisional Area Recommendations To Nursing Amount of Assist Needed 1 Person Assist Discharge Recommendations PT Discharge Recommendations Home with Assistance Transportation Needs at Discharge Private Vehicle
[2021-08-30] MEDS: ENOXAPARIN 40 MG/0.4 ML SYRINGE SUBCUT (09:06)
[2021-08-30] MEDS: SODIUM CHLORIDE 0.9% FLUSH 10 ML IV ×2 (09:07→20:22)
[2021-08-30] MEDS: PANTOPRAZOLE 40 MG VIAL IV ×2 (09:07→20:22)
--- NOTE | 2021-08-30 09:50 | PC.NURSE ---
Addendum entered by María James R.N. 08/30/21 11:25: Reyes removed at 1130, tolerated well. 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 BT hypoactive, patient denies flatus and nausea.
--- NOTE | 2021-08-30 11:33 | P.PN_ITS ---
Subjective Subjective Date Patient Seen: 08/30/21 Interval history: 65 Year old female admitted with incarcerated ventral hernia with secondary small-bowel obstruction Postop day 2 exploratory laparotomy with lysis of adhesions. Patient is on clear liquid diet. She has not had bowel movement and reports not passing flatus. No nausea or vomiting. Exam Vital Signs (past 8 hours): - 08/30/21 04:00 08/30/21 04:15 08/30/21 08:15 Temperature 98.7 F Pulse Rate 70 70 Respiratory Rate 18 16 Blood Pressure 118/58 L Pulse Oximetry 95 95 95 08/30/21 09:32 08/30/21 09:35 Temperature 97.5 F L Pulse Rate 78 Respiratory Rate 17 Blood Pressure 120/54 L Pulse Oximetry 95 95 Oxygen Delivery Method Room Air Oxygen Flow Rate 0 Narrative Exam Narrative: General: Alert and in no distress Lungs: Clear Heart: Regular rhythm Abdomen: Nondistended, bowel sounds not heard, ventral surgical incision looks clean and dry Extremities: No edema Objective Labs Result Diagrams: 08/30/21 05:45 08/30/21 05:45 Labs: Laboratory Results - last 24 hr 08/30/21 08/30/21 08/30/21 05:45 05:45 05:45 WBC 7.6 RBC 4.10 Hgb 11.4 L Hct 34.4 L MCV 84.0 MCH 27.9 MCHC 33.2 RDW 14.1 Plt Count 211 Neut % (Auto) 61.4 Lymph % (Auto) 27.7 [place] % (Auto) 6.0 Eos % (Auto) 3.9 Baso % (Auto) 1.0 Neut # (Auto) 4700 Lymph # (Auto) 2100 [place] # (Auto) 500 Eos # (Auto) 300 Baso # (Auto) 100 PT 14.0 H INR 1.2 Sodium 138 Potassium 4.2 Chloride 109 H Carbon Dioxide 28 BUN 11 Creatinine 0.49 L Estimated GFR > 60.0 BUN/Creatinine Ratio 22.4 H Glucose 89 Calcium 8.3 L PFSH Medical History (Updated 08/27/21 @ 23:28 by RAOUL Azar-) Chicken pox Depression Essential hypertension History of urinary incontinence (~1992) Measles Mumps Osteoarthritis Scarlet fever Surgical History H/O oophorectomy (~1988) History of bladder suspension procedure (~1998) History of carpal tunnel release (~1997) History of cataract removal with insertion of prosthetic lens History of Neil-en-Y gastric bypass (~08/2017) History of total abdominal hysterectomy Hx of cholecystectomy Family History Father Cancer Mother History of heart disease Sister Suicide Sister Kidney disease Grandfather History of emphysema Social History household members: spouse Smoking Status: Former smoker alcohol intake: current Assessment & Plan Assessment & Plan narrative: 1. Small-bowel obstruction secondary to incarcerated hernia -postop day 2. -diet, fluids per surgery 2. Hypertension, stable -continue amlodipine 3. Recurrent major depression, stable -continue fluoxetine 4. Obesity, BMI 34 Time Spent With Patient Critical Care time: I spent a total of [] minutes of critical care time on this patient's care today; this time is exclusive of procedural time. Quality VTE Deep Vein Thrombosis/Pulmonary Embolism Present on Admission: No
[2021-08-30] MEDS: ONDANSETRON 4 MG/2 ML INJ IV (12:25)
[2021-08-30] MEDS: HYDROCODONE/ACET 5/325 TABLET 1 TAB PO ×3 (13:04→21:01)
--- NOTE | 2021-08-30 15:24 | P.PN_ITS ---
Subjective Subjective Date Patient Seen: 08/30/21 Interval history: She has been tolerating clear liquid diet. No flatus. Exam Vital Signs (past 8 hours): - 08/30/21 08:15 08/30/21 09:32 08/30/21 09:35 Temperature 97.5 F L Pulse Rate 78 Respiratory Rate 17 Blood Pressure 120/54 L Pulse Oximetry 95 95 95 08/30/21 14:03 Temperature Pulse Rate Respiratory Rate Blood Pressure Pulse Oximetry 95 Oxygen Delivery Method Room Air Oxygen Flow Rate 0 Narrative Exam Narrative: No acute distress Soft, mildly tender near the incision Dressings in place over the midline wound Objective Labs Result Diagrams: 08/30/21 05:45 08/30/21 05:45 Labs: Laboratory Results - last 24 hr 08/30/21 08/30/21 08/30/21 05:45 05:45 05:45 WBC 7.6 RBC 4.10 Hgb 11.4 L Hct 34.4 L MCV 84.0 MCH 27.9 MCHC 33.2 RDW 14.1 Plt Count 211 Neut % (Auto) 61.4 Lymph % (Auto) 27.7 [place] % (Auto) 6.0 Eos % (Auto) 3.9 Baso % (Auto) 1.0 Neut # (Auto) 4700 Lymph # (Auto) 2100 [place] # (Auto) 500 Eos # (Auto) 300 Baso # (Auto) 100 PT 14.0 H INR 1.2 Sodium 138 Potassium 4.2 Chloride 109 H Carbon Dioxide 28 BUN 11 Creatinine 0.49 L Estimated GFR > 60.0 BUN/Creatinine Ratio 22.4 H Glucose 89 Calcium 8.3 L PFSH Medical History (Updated 08/30/21 @ 15:25 by Dileep Zuniga MD) Chicken pox Depression Essential hypertension History of urinary incontinence (~1992) Measles Mumps Osteoarthritis Scarlet fever Surgical History H/O oophorectomy (~1988) History of bladder suspension procedure (~1998) History of carpal tunnel release (~1997) History of cataract removal with insertion of prosthetic lens History of Neil-en-Y gastric bypass (~08/2017) History of total abdominal hysterectomy Hx of cholecystectomy Family History Father Cancer Mother History of heart disease Sister Suicide Sister Kidney disease Grandfather History of emphysema Social History household members: spouse Smoking Status: Former smoker alcohol intake: current Assessment & Plan Assessment and plan (1) Postoperative examination: Status: Acute Plan Advanced diet as tolerates Time Spent With Patient Critical Care time: I spent a total of [] minutes of critical care time on this patient's care today; this time is exclusive of procedural time. Quality VTE Deep Vein Thrombosis/Pulmonary Embolism Present on Admission: No
[2021-08-31] VITALS (8 sets, daily range): BP systolic 152–161; BP diastolic 70–76; PULSE 67–74; RESP 16–22; TEMP 37.3–37.5; O2SAT 92–95
[2021-08-31] MEDS: KCL 20 MEQ IN NS 1,000 ML 100 MEQ IV (03:03)
[2021-08-31] MEDS: PANTOPRAZOLE DR 40 MG TABLET PO (09:08)
[2021-08-31] MEDS: ENOXAPARIN 40 MG/0.4 ML SYRINGE SUBCUT (09:08)
[2021-08-31] MEDS: SODIUM CHLORIDE 0.9% FLUSH 10 ML IV (09:09)
--- NOTE | 2021-08-31 09:29 | PT.IPTN ---
Current Diagnoses Unspecified intestinal obstruction, unspecified as to partial versus complete obstruction (08/27/21) Encounter for follow-up examination after completed treatment for conditions other than malignant neoplasm (08/27/21) Surgery Performed Operation Date: 08/28/21 08:15 Actual Procedures p Exploratory Laparotomy GEN with lysis of adhesions - Jacek Koch MD Physical Therapy Treatment Note M2 PT-IP Current Condition Start: 08/30/21 09:21 Freq: NEEDED Status: Active Protocol: Document 08/30/21 08:45 AB (Rec: 08/30/21 09:33 AB [id number]) Physical Therapy Current Condition Current Condition Evaluation Date 08/30/21 Treatment Diagnosis SBO s/p ex lap; difficulty in walking Onset Date 08/27/21 M3 PT-IP Subjective Start: 08/30/21 09:21 Freq: NEEDED Status: Active Protocol: Document 08/31/21 09:16 LJ (Rec: 08/31/21 09:28 LJ [id number]) Subjective Physical Therapy Visit Type Type Treatment Note Visit Start Time 08:54 Visit Stop Time 09:15 Total Visit Minutes 19 Number of QUARTER TRIMMER Visits 1 Physical Therapy Visit Comments Patient Comments agreeable to do PT Therapy Pain Assessment Pain When Pain Assessed At Rest Pain Present Pain Present Pain Reported Location Abdomen Intensity 5 Scale Used Numeric (0 - 10) Description Aching Pain Management Techniques Distraction,Modification of Treatment,Re-positioning, Timing of Activity with Medications M4 PT-IP Mobility and Gait Start: 08/30/21 09:21 Freq: NEEDED Status: Active Protocol: Document 08/31/21 09:16 LJ (Rec: 08/31/21 09:28 LJ [id number]) PT-Transfer Assessment Sit to and From Stand Sit to and from Stand Standby Assistance,1 Person Assistance,Use of Upper Extremities Equipment Transfer Assistive Device Gait Belt Orthotic/Prosthetic Devices or Brace: Yes Transfers Transfer Destination Chair Transfer Technique ambulated Transfer Ability Level of Assist Standby Assistance,1 Person Assistance,Use of Upper Extremities Comments Mobility Comments Pt sitting in chair upon arrival. States she has to use the restroom. Pt stood pushing off chair SBA and ambulated to toilet w/o AD. Used bathroom independently and walked to sink for hand hygiene. She leaned against the counter while washing hands. She then ambulated in the hallway around [place] nurse 's station ~50' without assistance other than occasional CGA. Upon turning first corner pt reached to counter to steady herself stating she felt a little unsteady. She then continued ambulating back to room holding onto railing on wall. Back in the room she ambulated without assistance from door to chair where she sat down using UEs. During ambulation pt did not stop for rest breaks and did not lose her balance. Gait Assessment Gait Gait Assistance Required: Standby Assistance Distance (Feet) 240 Able to Maintain Weight Bearing Status Yes During Gait Assistive Devices Assistive Device Gait Belt Orthotic/Prosthetic Devices or Brace: No Gait Deviations General Gait Pattern Decreased Stride Length, Decreased Feet Clearance Factors Limiting Gait Function Factors Limiting Gait Function Decreased Activity Tolerance, Decreased Strength,Limited Range of Motion,Pain,Poor Balance M5 PT-IP Objective Assessments Start: 08/30/21 09:21 Freq: NEEDED Status: Active Protocol: Document 08/30/21 08:45 AB (Rec: 08/30/21 09:33 AB [id number]) Orientation Orientation/Cognition Level of Alertness Alert Orientation Name,Place,Situation Language Function Ability No Deficits Noted Safety Awareness Decreased Safety Awareness Memory Description Short Term Impaired Gross Range of Motion Lower Extremity ROM Assessment Within Functional Limits Strength Lower Extremity Strength Assessment Within Functional Limits Sensation Assessment Sensation Gross Sensation WNL Muscle Tone Muscle Tone WNL Yes M6 PT-IP Treatment Start: 08/30/21 09:21 Freq: NEEDED Status: Active Protocol: Document 08/31/21 09:16 RADHA (Rec: 08/31/21 09:28 LJ [id number]) Physical Therapy Treatment Education Education Provided Precautions,Safety M7 PT-IP Assessment and Plan Start: 08/30/21 09:21 Freq: NEEDED Status: Active Protocol: Document 08/31/21 09:16 RADHA (Rec: 08/31/21 09:28 LJ [id number]) PT Summary Assessment and Plan Potential Rehabilitation Potential Good Status of Condition at Evaluation Stable Summary Impairments Pain,ROM,Strength,Balance,Bed Mobility,Transfers,Gait, Activity Tolerance Assessment Summary Pt iimproving with ambulation distance and independence. When medically cleared she will be safe to DC home with assistance. Goals Bed Mobility Goal Independent Transfer Goal Independent,Front Wheeled Walker Gait Goal Independent,Front Wheel Walker Gait Distance 300 Other Goals improve transfers without AD independent, ambulation without AD independent 300 ft Days to Meet Goals 5 Frequency of Treatment Frequency Of Treatment Once a Day Treatment Plan Physical Therapy Treatment Plan Bed Mobility Training,Transfer Training,Gait Training, Therapeutic Exercise,Balance Retraining,Post Op Education, Discharge Planning,Hot or Cold Pack,Neuromuscular Re-ed, Coordination Retraining,Manual Therapy Other Recommendations and Next Treatment log roll bed mobility, sit<> Focus stand, ambulation Precautions Abdominal Surgery Precautions Log Roll,Lifting Restrictions, Gait Belt above Incisional Area Recommendations To Nursing Amount of Assist Needed Standby Assistance Discharge Recommendations PT Discharge Recommendations Home with Assistance Transportation Needs at Discharge Private Vehicle
--- NOTE | 2021-08-31 09:58 | PC.NURSE ---
Patient denies pain, she has 3+ lower leg edema. IV came out earlier on and patient is going to the bathroom alot from having so much fluid. She is incontinent of urine and states that she usually does have some leakage which is normal for her. Her dressing to ml is cdi. Pt is sitting up in her chair and looking at her ipad. She has no needs at this time.
--- NOTE | 2021-08-31 11:15 | PM.DS.1 ---
History of Present Illness History of Present Illness Chief complaint: N/V/D, dehydrated- Sent by Narrative: 65-year-old woman admitted to the hospital with a small-bowel obstruction.? She has had multiple prior abdominal surgeries.? CT abdomen pelvis demonstrates small-bowel obstruction with a transition point within the anterior abdominal wall near the umbilicus.? Hernia was non reducible and tender in the emergency department. She has been vomiting all night unable to pass flatus or have a bowel movement.? Laboratory studies WBC 9 today from 20 last night at admission.? 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 Discharge Providers Provider Date of admission: 08/27/21 18:48 Discharge Date: 08/31/21 Primary care physician: Dori Shelton MD Consults: 08/27/21 19:55 Consult to Physician Routine Comment: Consulting Provider: Dileep Zuniga Reason for consultation: SBO Has provider been notified: Yes 08/27/21 23:55 Consult to Respiratory Therapy Evaluate & Treat Comment: possible pneumonia Physician Instructions: Evaluate and treat 08/28/21 00:32 Consult to Dietitian, Adult Routine Comment: Reason For Exam: Obesity BMI 33.7 08/29/21 16:35 Consult to Physical Therapy Evaluate & Treat Comment: Physician Instructions: Evaluate and Treat Discharge provider: Jorge Alberto Willson MD Summary Hospital Course Discharge Diagnosis: 1. Small-bowel obstruction secondary to incarcerated infra umbilical ventral hernia 2. Essential hypertension Procedures: 08/28/2021 exploratory laparotomy with lysis of adhesions Patient was admitted for small-bowel obstruction due to apparent incarcerated ventral hernia. Dr. Koch consulted for surgery and performed exploratory laparotomy with lysis of adhesion for an incarcerated infraumbilical hernia. Patient had no complications postop and was passing flatus and tolerating advanced diet prior to discharge. Status at Discharge Overall status at discharge: patient is progressing back to baseline Exam Vital Signs (past 8 hours): - 08/31/21 06:00 08/31/21 06:30 08/31/21 08:00 Temperature 99.2 F 99.5 F Pulse Rate 72 71 Respiratory Rate 18 22 Blood Pressure 152/72 H 161/76 H Pulse Oximetry 93 95 93 08/31/21 08:19 08/31/21 11:13 Temperature Pulse Rate 74 Respiratory Rate 16 Blood Pressure Pulse Oximetry 95 92 Oxygen Delivery Method Room Air Oxygen Flow Rate 0 Narrative Exam Narrative: General: NAD Lungs: Breathing nonlabored Abdomen: Bowel sounds present, soft, nontender, surgical site without erythema or drainage Extremities: No edema Objective Labs Result Diagrams: 08/30/21 05:45 08/30/21 05:45 [facility] Medical History (Updated 08/30/21 @ 15:25 by Dileep Zuniga MD) Chicken pox Depression Essential hypertension History of urinary incontinence (~1992) Measles Mumps Osteoarthritis Scarlet fever Surgical History H/O oophorectomy (~1988) History of bladder suspension procedure (~1998) History of carpal tunnel release (~1997) History of cataract removal with insertion of prosthetic lens History of Neil-en-Y gastric bypass (~08/2017) History of total abdominal hysterectomy Hx of cholecystectomy Family History Father Cancer Mother History of heart disease Sister Suicide Sister Kidney disease Grandfather History of emphysema Social History household members: spouse Smoking Status: Former smoker alcohol intake: current Discharge Plan Discharge Plan Patient Disposition: Home Discharge orders & Medications Prescriptions: Continued fluoxetine 20 MG tablet 20 mg PO QDAY Qty: 90 3RF ursodiol 500 mg Tablet 500 mg PO DAILY 0RF solifenacin 10 mg Tablet 10 mg PO DAILY 0RF amlodipine 10 mg tablet 10 mg PO DAILY 0RF Follow up/Referrals: Dori Shelton MD [Primary Care Provider] - Jacek Koch MD [Physician] - 1 Week Diet/Activity/Treatments Diet: Regular Discharge Data Primary Care Provider: Dori Shelton Quality VTE Deep Vein Thrombosis/Pulmonary Embolism Present on Admission: No
--- NOTE | 2021-08-31 11:40 | PM.PNPO.1 ---
Subjective Subjective Date Patient Seen: 08/31/21 Time Patient Seen: 11:42 Interval history: Feeling well. Minimal pain. Positive flatus. Tolerating clears Exam Vital Signs (past 8 hours): - 08/31/21 06:00 08/31/21 06:30 08/31/21 08:00 Temperature 99.2 F 99.5 F Pulse Rate 72 71 Respiratory Rate 18 22 Blood Pressure 152/72 H 161/76 H Pulse Oximetry 93 95 93 08/31/21 08:19 08/31/21 11:13 Temperature Pulse Rate 74 Respiratory Rate 16 Blood Pressure Pulse Oximetry 95 92 Oxygen Delivery Method Room Air Oxygen Flow Rate 0 Narrative Exam Narrative: General adult woman alert oriented no acute distress Abdomen soft nontender nondistended. Incision clean dry intact Objective Labs Result Diagrams: 08/30/21 05:45 08/30/21 05:45 [facility] Medical History (Updated 08/30/21 @ 15:25 by Dileep Zuniga MD) Chicken pox Depression Essential hypertension History of urinary incontinence (~1992) Measles Mumps Osteoarthritis Scarlet fever Surgical History H/O oophorectomy (~1988) History of bladder suspension procedure (~1998) History of carpal tunnel release (~1997) History of cataract removal with insertion of prosthetic lens History of Neil-en-Y gastric bypass (~08/2017) History of total abdominal hysterectomy Hx of cholecystectomy Family History Father Cancer Mother History of heart disease Sister Suicide Sister Kidney disease Grandfather History of emphysema Social History household members: spouse Smoking Status: Former smoker alcohol intake: current Assessment & Plan Post-op Postoperative Procedures: Procedures Operation Date: 08/28/21 08:15 Actual Procedure Side Surgeon p Exploratory Laparotomy GEN with lysis of adhesions Jacek Koch MD Postoperative status narrative: 65-year-old woman postoperative day 3 status post exploratory laparotomy lysis of adhesions for incarcerated ventral hernia causing a subsequent small-bowel obstruction. She is doing well she has return of bowel function. Advanced diet to regular. If she tolerates this and her pain is under control it is reasonable for her to discharge with follow-up in 2 weeks time in surgical clinic. Quality VTE Deep Vein Thrombosis/Pulmonary Embolism Present on Admission: No
== END 2021-08-31 14:52 | disposition home or self-care (01) | DRG 337 ==
LOC: ED 18:49 → AC 18:50
PROVIDERS: Emergency Medicine; Nurse Practitioner Family; Surgery; Admitting Provider Hospitalist; Emergency Provider Student in an Organized Health Care Education/Training Program; PCP Family Medicine; Referring Provider Student in an Organized Health Care Education/Training Program; Visit Provider Hospitalist
PROC: 0WQF0ZZ Repair Abdominal Wall, Open Approach (ICD-10-PCS; CPT 49000; principal; 2021-08-28 08:15)
DX: K42.0 Umbilical hernia with obstruction, without gangrene (principal); K44.9 Diaphragmatic hernia without obstruction or gangrene; E66.01 Morbid (severe) obesity due to excess calories; K66.0 Peritoneal adhesions (postprocedural) (postinfection); N32.81 Overactive bladder; E53.8 Deficiency of other specified B group vitamins; I10 Essential (primary) hypertension; Z87.891 Personal history of nicotine dependence; Z68.33 Body mass index [BMI] 33.0-33.9, adult; Z20.822 Contact with and (suspected) exposure to COVID-19
CPT/HCPCS: 36415; 49320; 71045; 74018; 74177; 80048; 80053; 81001; 82805; 82962; 83036; 83605; 83690; 83735; 84145; 85025; 85610; 85730; 87040; 87086; 87633; 93005; 94760; 96361; 96365; 96366; 96367; 96375; 97116; 97161; 99222; 99284; C9113; J0330; J1100; J1170; J1200; J1650; J1885; J2250; J2405; J2543; J2704; J2765; J3010; J3360; J3410; Q9967

== ENCOUNTER → 2022-12-09 11:55 | Outpatient (CLI) | payer MEDICARE, OTHER, SELFPAY ==
[2022-04-22 09:18] VITALS: BMI 33.7
--- NOTE | 2022-12-09 | DI.MRI.S_ITS ---
PROCEDURE: MR HEAD/BRAIN WO CON INDICATIONS: Amaurosis fugax TECHNIQUE: Non-contrast axial T1 spin echo, axial T2 fast spin echo, sagittal and axial FLAIR, coronal T2 fast spin echo, axial gradient echo, axial diffusion and ADC through the brain. COMPARISON: None. FINDINGS: Image quality: Excellent. CSF spaces: Ventricles appear symmetric in size and shape. Basal cisterns are patent. No extra-axial fluid collections. Brain: No intracranial bleeds or mass effects. There is cerebral volume loss for age. There are periventricular and deep white matter chronic small vessel ischemic changes. Brainstem appears normal. Diffusion-weighted images demonstrate a 4 mm focus of elevated signal intensity within the right medial cerebellum which demonstrates low ADC map signal, as well as moderate FLAIR signal elevation. No chronic ischemic insults. Normal intravascular flow voids are present. Skull and face: Calvarial bone marrow is normal in signal. Orbits are normal. Sinuses: Right maxillary sinus is hypoplastic and demonstrates moderate mucosal thickening. Sinuses and mastoids are otherwise clear. IMPRESSION: 1. Small subacute right cerebellar infarct. 2. Mild volume loss and small vessel ischemic disease. 3. Sinus disease. Dictated by: Neftali Turcios M.D. on 12/09/2022 at 12:59 Approved by: Neftali Turcios M.D. on 12/09/2022 at 13:00
--- NOTE | 2022-12-09 | DI.US.S_ITS ---
PROCEDURE: US CAROTID DOPPLER BI INDICATIONS: Amaurosis fugax TECHNIQUE: Color and pulse Doppler interrogation was performed of both carotid systems, with image documentation and velocity measurements. COMPARISON: None. FINDINGS: Stenosis calculations are based on SRU (Society of Radiologists in Ultrasound) criteria. Right side: Brachial blood pressure: 130/95 mm Hg. Common carotid artery peak systolic velocity: 73.5 cm/sec. Internal carotid artery peak systolic velocity: 93.0 cm/sec. Internal carotid artery end diastolic velocity: 38.9 cm/sec. External carotid artery peak systolic velocity: 85.6 cm/sec. ICA/CCA peak systolic ratio: 1.3 . Barbosa scale imaging description: Mild atheromatous plaque and calcifications are noted at the right carotid bulb. Percent internal carotid artery stenosis: Less than 50% stenosis. . Vertebral artery: Flow direction is antegrade. Left side: Brachial blood pressure: 134/89 mm Hg. Common carotid artery peak systolic velocity: 88.9 cm/sec. Internal carotid artery peak systolic velocity: 82.8 cm/sec. Internal carotid artery end diastolic velocity: 34.7 cm/sec. External carotid artery peak systolic velocity: 84.2 cm/sec. ICA/CCA peak systolic ratio: 0.9 . Barbosa scale imaging description: Mild atheromatous plaquing calcification is present at the left carotid bulb. Percent internal carotid artery stenosis: Less than 50% stenosis . Vertebral artery: Flow direction is antegrade. IMPRESSION: Less than 50% stenosis of the bilateral internal carotid arteries. Dictated by: Dana Ortez M.D. on 12/09/2022 at 15:51 Approved by: Dana Ortez M.D. on 12/09/2022 at 15:53
== END ==
PROVIDERS: PCP Family Medicine; Referring Provider Family Medicine; Visit Provider Family Medicine
DX: I63.9 Cerebral infarction, unspecified (principal); G45.3 Amaurosis fugax; J32.0 Chronic maxillary sinusitis
CPT/HCPCS: 70551; 93880

== ENCOUNTER → 2023-02-24 07:50 | Outpatient (CLI) | payer MEDICARE, OTHER, SELFPAY ==
[2022-04-22 09:18] VITALS: BMI 33.7
--- NOTE | 2023-02-24 | DI.ECHO.S_ITS ---
[facility] +---------+ : : [address] : [place] : : : : [id number] : : : : Phone: [phone]+ Echocardiogram Report + + :Name: FERNANDO ARRINGTON Study Date: 02/24/2023 Height: 61 in : :[facility] ReadingLocation: Weight: 170 lb : : Gender: Female BSA: 1.8 m2 : :: 1955 Age: 67 yrs BP: 128/83 mmHg: :Reason For Study: CEREBROVASCULAR DISEASE : :Ordering Physician: ELLEN, : :GERALDO DANG Performed By: Claudia Huber : :Referring: MIKAYLA MEYER W : + + Interpretation Summary 1) Normal left ventricular thickness, size, and systolic function (EF 55-60%). 2) Normal right ventricular size and function. 3) There is mild to moderate aortic regurgitation. 4) There is mild aortic stenosis (valve area 1.6cm2, mean gradient 10mmHg, severity ratio 0.51). 5) Injection of contrast documented no interatrial shunt. 6) No prior Echo available for comparison. Procedure: A two-dimensional transthoracic echocardiogram with color flow and Doppler was performed. The study quality was technically adequate. There is no prior echocardiogram noted for this patient. A saline contrast injection was performed to assess for cardiac shunting. The injection was performed through an intravenous line in the right arm. The patient was in sinus rhythm with heart rates between 61-65 bpm during the exam. Left Ventricle: The left ventricle is normal in size and wall thickness. The ejection fraction is estimated to be 55-60%. There is a borderline dyssynchronous contraction pattern, consistent with a conduction abnormality. Diastolic parameters suggest a relaxation abnormality of the left ventricle, consistent with probable normal filling pressures. Right Ventricle: The right ventricle is normal in size and function. Atria: The left atrium is moderately dilated. Right atrial size is normal. There is no Doppler evidence for an interatrial shunt. Injection of contrast documented no interatrial shunt. Mitral Valve: The mitral valve leaflets appear mildly thickened, but open well. There is mild mitral annular calcification. There is trace mitral regurgitation. Aortic Valve: The aortic valve is not well visualized. The aortic valve opens well. There is mild aortic stenosis. The peak aortic velocity is 2.3 m/sec. The aortic valve mean gradient is 10 mmHg. The calculated aortic valve area is 1.4 cm2. There is mild to moderate aortic regurgitation. Tricuspid Valve: The tricuspid valve is normal in structure and function. There is mild tricuspid regurgitation. The right ventricular systolic pressure is estimated to be at least 21 mmHg based on an estimated right atrial pressure of 8 mm Hg. Pulmonic Valve: The pulmonic valve leaflets are thin and pliable; valve motion is normal. There is trace pulmonic regurgitation. Great Vessels: The aortic root is normal size. The dimensions of the ascending aorta are normal. The IVC is of normal diameter and collapses less than 50% with a sniff. This suggests a right atrial pressure of 8 mm Hg. Pericardium/ Pleura There is no pericardial effusion. There is no pleural effusion. MMode/2D Measurements & Calculations LVIDd: 4.8 cm LVOT diam: 2.0 cm LVIDs: 3.2 cm Ao root diam: 2.8 cm FS: 34.6 % asc Aorta Diam: 3.4 cm EPSS: 0.49 cm Ao Arch Diam (Prox Trans): 3.2 cm IVSd: 0.79 cm LVPWd: 0.71 cm LV dawn. diameter/BSA (cm/m^2): 2.7 LV sys. diameter/BSA (cm/m^2): 1.8 LA A2 area: 20.6 cm2 RA long axis: 5.0 cm LA A4 area: 20.1 cm2 RA area: 15.8 cm2 LA length (vol): 5.4 cm RA vol: 42.5 ml LA vol: 64.6 ml RA : 24.1 ml/m2 LA vol index: 36.7 ml/m2 IVC diam: 1.6 cm RVD1 (basal): 3.1 cm RVD2 (mid): 3.2 cm TAPSE: 2.1 cm Doppler Measurements & Calculations Ao V2 max: 229.9 cm/sec LVOT Max Mario: 103.5 cm/sec Ao V2 mean: 143.8 cm/sec LV V1 max P.3 mmHg Ao max P.1 mmHg LV V1 VTI: 24.0 cm Ao mean P.8 mmHg GREYSON(I,D): 1.6 cm2 Ao V2 VTI: 47.1 cm GREYSON(V,D): 1.4 cm2 sev ratio: 0.51 GREYSON indexed to BSA (cm^2/m^2): 0.88 AI P1/2t: 771.1 msec AI dec slope: 165.8 cm/sec2 MV E max mario: 92.9 cm/sec TR max mario: 181.1 cm/sec MV A max mario: 94.3 cm/sec TR max P.1 mmHg MV E/A: 0.99 PA V2 max: 93.0 cm/sec Med Peak E' Mario: 6.1 cm/sec PA V2 mean: 72.5 cm/sec E/E' med: 15.3 PA mean P.2 mmHg Lat Peak E' Mario: 10.1 cm/sec PA pr(Accel): 51.6 mmHg E/E' lat: 9.2 E/e' average: 12.2 MV dec time: 0.24 sec SV(LVOT): 73.3 ml Reading Physician:11:06 AM
== END ==
PROVIDERS: PCP Family Medicine; Referring Provider Family Medicine; Visit Provider Family Medicine
DX: I67.9 Cerebrovascular disease, unspecified (principal); I08.3 Combined rheumatic disorders of mitral, aortic and tricuspid valves
CPT/HCPCS: 93306

== ENCOUNTER → 2024-06-20 09:34 | Outpatient (CLI) | payer MEDICARE, OTHER, SELFPAY ==
[2022-04-22 09:18] VITALS: BMI 33.7
--- NOTE | 2024-06-20 09:41 | DI.RAD.S_ITS ---
PROCEDURE: XR ANKLE RT MIN 3V INDICATIONS: PAIN TECHNIQUE: 3 views of the ankle were acquired. COMPARISON: None. FINDINGS: Bones: Tiny partially united avulsion fracture of the medial malleolus seen Tibiotalar and talocalcaneal joints: Normal in width and alignment . Small ankle effusion noted. Soft tissues: Mild calcification Achilles and plantar tendon insertion on the calcaneus noted. Mild diffuse soft tissue swelling appreciated IMPRESSION: Small ankle effusion and diffuse soft tissue swelling. Other chronic findings that as described Dictated by: Daniel Zarate M.D. on 06/21/2024 at 10:26 Approved by: Daniel Zarate M.D. on 06/21/2024 at 10:27
--- NOTE | 2024-06-20 09:41 | DI.RAD.S_ITS ---
PROCEDURE: XR DEXA AXIAL SKELETON INDICATIONS: OSTEOPROSIS SCREENING COMPARISON: None. FINDINGS: Lumbar Spine: Bone mineral density 0.804 g/cm2, T score -2.2. Left Hip: Bone mineral density 0.761 g/cm2, T score -1.5. Left Femoral Neck: Bone mineral density 0.620 g/cm2, T score -2.1. Right Hip: Bone mineral density 0.690 g/cm2, T score -2.1. Right Femoral Neck: Bone mineral density 0.543 g/cm2, T score -2.8. Fracture Risk Calculation (when applicable): 10-year fracture risk of a major osteoporotic fracture 14 percent and of a hip fracture 3.4 percent. (T score greater or equal to -1.0 to: NORMAL) (T score from -1.1 to -2.4: OSTEOPENIA) (T score less than or equal to -2.5: OSTEOPOROSIS) IMPRESSION: Osteoporosis. Follow-up guidelines as follows: Osteoporosis: Consider a repeat DEXA and Vertebral Fracture Assessment (VFA) exam in 2 years or sooner if medically necessary, to reassess this patient's status. Osteopenia: Consider a repeat DEXA in 2-3 years to reassess this patient's status, or if there is a new clinical indication. Normal: Consider a repeat DEXA in 5 years or sooner, or if there is a new clinical indication. All treatment decisions require clinical judgment and consideration of individual patient factors, including patient preferences, comorbidities, previous drug use, risk factors not captured in the FRAX model (e.g., frailty, falls, vitamin D deficiency, increased bone turnover, interval significant decline in bone density ) and possible under- or over-estimation of fracture risk by FRAX. In addition, the NOF Guide recommends that FDA-approved medical therapies be considered in postmenopausal women and men age >= 50 years with a: * Hip or vertebral (clinical or morphometric) fracture * T-score of <=-2.5 at the spine or hip * Ten-year fracture probability by FRAX of >= 3% for hip fracture or >=20% for major osteoporotic fracture. People with diagnosed cases of osteoporosis or at high risk for fracture should have regular bone mineral density tests. For patients eligible for Medicare, routine testing is allowed once every 2 years. The testing frequency can be increased to one year for patients who have rapidly progressing disease, those who are receiving or discontinuing medical therapy to restore bone mass, or have additional risk factors. Dictated by: Suhas Pacheco M.D. on 06/20/2024 at 20:33 Approved by: Suhas Pacheco M.D. on 06/20/2024 at 20:35
--- NOTE | 2024-06-20 09:41 | DI.RAD.S_ITS ---
PROCEDURE: XR KNEE RT 3V INDICATIONS: PAIN TECHNIQUE: 3 views of the knee were acquired. COMPARISON: None. FINDINGS: Bones: No acute fracture or dislocation. Mild degree of joint space narrowing involving the medial and lateral compartments of the knee. Mild degree of patellofemoral joint space narrowing with small osteophytes. No suspicious bony lesions. Soft tissues: No joint effusion. No suspicious soft tissue calcifications. IMPRESSION: Mild degree of tricompartmental osteoarthritis. No acute osseous abnormality. Dictated by: Jorge Alberto Collins M.D. on 06/20/2024 at 10:48 Approved by: Jorge Alberto Collins M.D. on 06/20/2024 at 10:49
--- NOTE | 2024-06-20 09:41 | DI.RAD.S_ITS ---
PROCEDURE: XR HIP W PEL IF DONE RT 2V INDICATIONS: PAIN TECHNIQUE: Two views of the hip were acquired. COMPARISON: None. FINDINGS: Bones: Pincer configuration of the right acetabulum may predispose to femoral acetabular impingement. SI and hip joints: Mild bilateral SI and right hip degeneration noted. Moderate L5-S1 degenerative disc disease noted. Soft tissues: Moderate calcification , adjacent the right greater trochanter likely represent calcification in the gluteal tendon insertion. IMPRESSION: Mild right hip degeneration with pincer configuration right acetabulum predisposing to femoral acetabular impingement. Dictated by: Daniel Zarate M.D. on 06/21/2024 at 10:24 Approved by: Daniel Zarate M.D. on 06/21/2024 at 10:26
== END ==
LOC: RAD 09:38
PROVIDERS: PCP Family Medicine; Referring Provider Family Medicine; Visit Provider Family Medicine
DX: M16.11 Unilateral primary osteoarthritis, right hip; M81.0 Age-related osteoporosis without current pathological fracture; M17.11 Unilateral primary osteoarthritis, right knee; M25.571 Pain in right ankle and joints of right foot; M25.471 Effusion, right ankle; M79.89 Other specified soft tissue disorders; M25.551 Pain in right hip; M25.561 Pain in right knee
CPT/HCPCS: 73502; 73562; 73610; 77080

== ENCOUNTER → 2024-11-25 09:26 | Outpatient (CLI) | payer MEDICARE, OTHER, SELFPAY ==
[2022-04-22 09:18] VITALS: BMI 33.7
--- NOTE | 2024-11-25 09:32 | DI.RAD.S_ITS ---
PROCEDURE: XR THORACIC SPINE 2V INDICATIONS: BACK PAIN TECHNIQUE: 3 views of the thoracic spine were acquired. COMPARISON: None. FINDINGS: Bones: No fractures or dislocations. No suspicious bony lesions. 12 pairs of ribs are noted, and appear intact where visualized. Spine degenerative disc disease and facet arthropathy. Soft tissues: No paravertebral stripe thickening. Cholecystectomy clips. IMPRESSION: Multilevel degenerative disc disease. Multilevel facet arthropathy. No fracture. No acute osseous lesion. If symptoms and/or clinical suspicion for pathology persists, evaluation with MRI should be considered for further assessment. Dictated by: Ashleigh Alvarado MD, PhD on 11/25/2024 at 12:19 Approved by: Ashleigh Alvarado MD, PhD on 11/25/2024 at 12:20
--- NOTE | 2024-11-25 09:32 | DI.RAD.S_ITS ---
PROCEDURE: XR LUMBAR SPINE 2-3V INDICATIONS: BACK PAIN TECHNIQUE: 3 views of the lumbar spine were acquired. COMPARISON: None. FINDINGS: Bones: 5 [id number] vertebrae are present. There is normal bony alignment. No vertebral body compression fractures. No suspicious bony lesions. Spine degenerative disc disease and facet arthropathy. Soft tissues: Overlying bowel gas pattern is normal. No suspicious soft tissue calcifications. Cholecystectomy clips. IMPRESSION: Multilevel degenerative disc disease. Multilevel facet arthropathy. No fracture. No acute osseous lesion. If symptoms and/or clinical suspicion for pathology persists, evaluation with MRI should be considered for further assessment. Dictated by: Ashleigh Alvarado MD, PhD on 11/25/2024 at 12:20 Approved by: Ashleigh Alvarado MD, PhD on 11/25/2024 at 12:21
[2024-11-25 10:59] LABS: Add Manual Diff / Slide Review NO; Basophils Absolute Auto 100 /uL (0-100); Basophils Percent Auto 1.1 % (0-2); Eosinophils Absolute Auto 200 /uL (0-450); Eosinophils Percent Auto 3.3 % (2-4); Hematocrit 42.3 % (36-46); Hemoglobin 14.1 g/dL (12.0-16.0); Lymphocytes Absolute Auto 2400 /uL (1100-4500); Lymphocytes Percent Auto 37.3 % (25-40); Mean Corpuscular HGB Conc 33.3 % (30-36); Mean Corpuscular Hemoglobin 28.7 PG (26-34); Mean Corpuscular Volume 86.4 fL (80-100); Monocytes Absolute Auto 400 /uL (0-900); Monocytes Percent Auto 6.2 % (3-14); Neutrophils Absolute Auto 3300 /uL (1500-7000); Neutrophils Percent Auto 52.1 % (50-75); Platelet Count 246 X10^3/uL (150-400); Red Blood Cell Count 4.89 X10^6/uL (4.0-5.2); Red Cell Distribution Width 14.5 % (11.6-14.8); White Blood Cell Count 6.3 X10^3/uL (4.5-11.0)
[2024-11-25 11:17] LABS: Alanine Aminotransferase 16 IU/L (<35); Albumin 4.3 g/dL (3.5-5.0); Albumin Globulin Ratio 1.5 (1.0-2.8); Alkaline Phosphatase 110 U/L (38-126); Aspartate Aminotransferase 27 IU/L (14-36); BUN Creatinine Ratio 26.2 (6-22); Bilirubin Total 0.9 mg/dL (0.2-1.3); Blood Urea Nitrogen 17 mg/dL (7-17); Calcium 9.6 mg/dL (8.4-10.2); Carbon Dioxide 26 mmol/L (22-32); Chloride 106 mmol/L (98-107); Estimated Glomerular Filt Rate > 60 mL/min (>60); Globulin 2.8 g/dL (1.7-4.1); Glucose 91 mg/dL (80-110); HEMOLYSIS 28 (0-50); Potassium 4.4 mmol/L (3.4-5.1); Sodium 141 mmol/L (137-145); Total Protein 7.1 g/dL (6.3-8.2)
[2024-11-25 11:33] LABS: Free T4, Direct Thyroxine 1.17 ng/dL (0.78-2.19)
[2024-11-25 11:35] LABS: Prolactin 5.7 ng/mL (3.0-18.6)
[2024-11-25 12:07] LABS: Vitamin B12 519 pg/mL (239-931)
[2024-11-27 05:13] LABS: Parathyroid Hormone Int 42 pg/mL (15-65)
[2024-11-29 14:12] LABS: Albumin 3.4 g/dL (2.9-4.4); Alpha-1-Globulin 0.3 g/dL (0.0-0.4); Alpha-2-Globulin 0.8 g/dL (0.4-1.0); Globulin Total 3.2 g/dL (2.2-3.9); Protein, Total 6.6 g/dL (6.0-8.5)
[2024-11-29 18:08] LABS: Deamidated Gliadin Ab IgA 9 units (0-19); Deamidated Gliadin Ab IgG <1 units (0-19); Immunoglobulin A,Qn 413 mg/dL (87-352); t-Transglutaminase IgA 2 U/mL (0-3)
== END ==
PROVIDERS: PCP Family Medicine; Visit Provider Internal Medicine Rheumatology
DX: M51.369 Other intervertebral disc degeneration, lumbar region without mention of lumbar back pain or lower extremity pain (principal); M47.816 Spondylosis without myelopathy or radiculopathy, lumbar region; M81.0 Age-related osteoporosis without current pathological fracture; Z79.899 Other long term (current) drug therapy
CPT/HCPCS: 36415; 72070; 72100; 80053; 82306; 82607; 82784; 83516; 83970; 84146; 84155; 84165; 84207; 84439; 84443; 85025

== ENCOUNTER → 2025-06-21 09:31 | Outpatient (CLI) | payer MEDICARE, OTHER, SELFPAY ==
[2022-04-22 09:18] VITALS: BMI 33.7
--- NOTE | 2025-06-21 09:33 | DI.RAD.S_ITS ---
PROCEDURE: XR DEXA AXIAL SKELETON INDICATIONS: OSTEOPOROSIS SCREENING COMPARISON: [facility], , XR DEXA AXIAL SKELETON, 06/20/2024, 10:06. FINDINGS: Lumbar Spine: Bone mineral density is 0.804 g/cm2, T score -2.2, no statistical difference since prior. Left Femoral Neck: Bone mineral density 0.619 g/cm2, T score -2.1. Left Hip: Bone mineral density 0.718 g/cm2, T score -1.8, statistically significant decrease by 5.6 percent. Fracture Risk Calculation (when applicable): 10-year fracture risk of a major osteoporotic fracture 12 percent percent and of a hip fracture 2.2 percent. (T score greater or equal to -1.0 to: NORMAL) (T score from -1.1 to -2.4: OSTEOPENIA) (T score less than or equal to -2.5: OSTEOPOROSIS) IMPRESSION: Osteopenia Follow-up guidelines as follows: Osteoporosis: Consider a repeat DEXA and Vertebral Fracture Assessment (VFA) exam in 2 years or sooner if medically necessary, to reassess this patient's status. Osteopenia: Consider a repeat DEXA in 2-3 years to reassess this patient's status, or if there is a new clinical indication. Normal: Consider a repeat DEXA in 5 years or sooner, or if there is a new clinical indication. All treatment decisions require clinical judgment and consideration of individual patient factors, including patient preferences, comorbidities, previous drug use, risk factors not captured in the FRAX model (e.g., frailty, falls, vitamin D deficiency, increased bone turnover, interval significant decline in bone density ) and possible under- or over-estimation of fracture risk by FRAX. In addition, the NOF Guide recommends that FDA-approved medical therapies be considered in postmenopausal women and men age >= 50 years with a: * Hip or vertebral (clinical or morphometric) fracture * T-score of <=-2.5 at the spine or hip * Ten-year fracture probability by FRAX of >= 3% for hip fracture or >=20% for major osteoporotic fracture. Approved by: Brooke Haque M.D.,Ph.D. on 06/21/2025 at 17:31
== END ==
LOC: RAD 09:32
PROVIDERS: PCP Family Medicine; Referring Provider Naturopath; Visit Provider Family Medicine
DX: M81.0 Age-related osteoporosis without current pathological fracture (principal); Z51.81 Encounter for therapeutic drug level monitoring; Z79.83 Long term (current) use of bisphosphonates; M85.88 Other specified disorders of bone density and structure, other site; M85.852 Other specified disorders of bone density and structure, left thigh
CPT/HCPCS: 77080

== ENCOUNTER → 2025-08-06 13:08 | Outpatient (CLI) | payer MEDICARE, OTHER, SELFPAY ==
[2022-04-22 09:18] VITALS: BMI 33.7
--- NOTE | 2025-08-06 13:11 | DI.MRI.S_ITS ---
PROCEDURE: MR HEAD/BRAIN WO CON INDICATIONS: EPISODIC RIGHT EYE VISION LOSS TECHNIQUE: Non-contrast axial T1 spin echo, axial T2 fast spin echo, sagittal and axial FLAIR, coronal T2 fast spin echo, axial gradient echo, axial diffusion and ADC through the brain. COMPARISON: [facility], MR, MR HEAD/BRAIN WO CON, 12/09/2022, 12:31. FINDINGS: Image quality: Excellent. CSF spaces: Ventricles appear symmetric in size and shape. Basal cisterns are patent. No extra-axial fluid collections. Brain: No intracranial bleeds or mass effects. There is cerebral volume loss for age. There are periventricular and deep white matter chronic small vessel ischemic changes. Brainstem appears normal. Diffusion-weighted images show no acute infarct. No chronic ischemic insults. Normal intravascular flow voids are present. Skull and face: Calvarial bone marrow is normal in signal. Bilateral lens replacements. Otherwise, the orbits are unremarkable. Sinuses: Sinuses and mastoids are clear. IMPRESSION: No acute intracranial abnormalities. Mild age-related global volume loss and chronic microvascular ischemic change. Dictated by: Yoshi Oliveira M.D. on 08/07/2025 at 9:13 Approved by: Yoshi Oliveira M.D. on 08/07/2025 at 9:15
== END ==
LOC: MRI 13:10
PROVIDERS: PCP Family Medicine; Referring Provider Family Medicine; Visit Provider Family Medicine
DX: H53.121 Transient visual loss, right eye (principal)
CPT/HCPCS: 70551

== ENCOUNTER → 2025-09-06 08:01 | Outpatient (CLI) | payer MEDICARE, OTHER, SELFPAY ==
[2022-04-22 09:18] VITALS: BMI 33.7
--- NOTE | 2025-09-06 08:03 | DI.US.S_ITS ---
PROCEDURE: US CAROTID DOPPLER BI INDICATIONS: Amaurosis fugax TECHNIQUE: Color and pulse Doppler interrogation was performed of both carotid systems, with image documentation and velocity measurements. COMPARISON: [facility], [place], US CAROTID DOPPLER BI, 12/09/2022, 12:07. FINDINGS: Stenosis calculations are based on SRU (Society of Radiologists in Ultrasound) criteria. Right side: Common carotid artery peak systolic velocity: 56 cm/sec. Internal carotid artery peak systolic velocity: 64 cm/sec. Internal carotid artery end diastolic velocity: 25 cm/sec. External carotid artery peak systolic velocity: 56 cm/sec. ICA/CCA peak systolic ratio: 1.16 . Barbosa scale imaging description: Mild atherosclerotic plaques Percent internal carotid artery stenosis: Less than 50% . Vertebral artery: Flow direction is antegrade. Left side: Common carotid artery peak systolic velocity: 67 cm/sec. Internal carotid artery peak systolic velocity: 81 cm/sec. Internal carotid artery end diastolic velocity: 33 cm/sec. External carotid artery peak systolic velocity: 63 cm/sec. ICA/CCA peak systolic ratio: 1.2 . Barbosa scale imaging description: Mild atherosclerotic plaques Percent internal carotid artery stenosis: Less than 50% . Vertebral artery: Flow direction is antegrade. IMPRESSION: 1. In the right carotid artery, there is less than 50% stenosis based on peak systolic velocity criteria. 2. In the left carotid artery, there is less than 50% stenosis based on peak systolic velocity criteria. 3. Antegrade vertebral arteries. Dictated by: Yoshi Oliveira M.D. on 09/06/2025 at 12:02 Approved by: Yoshi Oliveira M.D. on 09/06/2025 at 12:03
== END ==
PROVIDERS: PCP Family Medicine; Referring Provider Family Medicine; Visit Provider Family Medicine
DX: G45.3 Amaurosis fugax (principal)
CPT/HCPCS: 93880